=== PATIENT | female | born 1930 | race African-American/Black ===

== ENCOUNTER 2016-12-13 07:01 | Inpatient (IN) | payer MEDICARE ==
--- NOTE | 2016-12-13 07:26 | ERNOTE ---
<Bud Cummings - Last Filed: 12/13/16 08:12> Lower Extremity HPI - Narrative Date of Service: 12/13/16 - General Lower Extremities Pain: thigh: right Time Seen by Provider: 12/13/16 07:24 Source: patient, family - nieces x 2, one of whom is also also her caretake. Exam Limitations: no limitations - Immun/Allergies/Home Medications Immunizations: IMMUNIZATION HX Immunizations Up to Date Yes History of Influenza Vaccine Yes Hx Pneumococcal Vaccination Yes Allergies/Adverse Reactions: Allergies Allergy/AdvReac Type Severity Reaction Status Date / Time penicillin G Allergy Unknown Verified 12/13/16 07:20 Home Medications: HOME MEDICATIONS Aggrenox 60 BID 06/28/12 [Last Taken Unknown] Alphagan P BID 06/28/12 [Last Taken Unknown] Lumigan 06/28/12 [Last Taken Unknown] Metoprolol Succinate 50 mg PO HS 06/28/12 [Last Taken Unknown] Potassium 10 mg PO TID 06/28/12 [Last Taken Unknown] Ropinirole HCl 5 mg PO DAILY 06/28/12 [Last Taken Unknown] Trazodone HCl 50 mg PO DAILY 06/28/12 [Last Taken Unknown] Albuterol Sulfate [Proventil Hfa] 1 puff INH PRN PRN 12/13/16 [Last Taken Unknown] Amlodipine/Atorvastatin [Amlodipine-Atorvast 10-10 mg] 10 mg PO DAILY 12/13/16 [ Last Taken Unknown] Atorvastatin Calcium [Lipitor] 10 mg PO DAILY 12/13/16 [Last Taken Unknown] Dorzolamide HCl [Trusopt] 1 drop OP PRN 12/13/16 [Last Taken Unknown] Quinapril HCl 10 mg PO DAILY 12/13/16 [Last Taken Unknown] glipiZIDE [Glipizide] 5 mg PO DAILY 12/13/16 [Last Taken Unknown] - History of Present Illness Narrative: pt c/o sore right leg for 2 months and knots on her leg (calf. 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 SHE HAS HAD EPIDURALS FOR THIS IN THE PAST , 2013. NO HISTORY OF NEW TRAUMA. SHE SAYS IT HURTS TOO MUCH TOO WALK. OTHER THAN USING BIO-FREEZE RECENTLY, WHICH NO LONGER HELPS, SHE SAYS SHE HAS NOT BEEN DOING ANY THING ELSE FOR THE PAIN THAT GOES FROM RIGHT BUTTOCK TO RIGHT LATERAL THIGH. THERE IS NO HX OF ANY BOWEL OR BLADDER INCONTINENCE. . Occurred: other - 2 MONTHS Review of Systems - Review of Systems Constitutional: Present: See HPI EYE: Present: no symptoms reported ENT: Present: no symptoms reported Respiratory: Present: no symptoms reported Cardiology: Present: no symptoms reported Gastrointestinal/Abdominal: Present: no symptoms reported Genitourinary: Present: no symptoms reported Musculoskeletal: Present: See HPI, back pain, other - PAIN DOWN RIGHT THIGH LATERALLY Skin: Present: no symptoms reported Neurological: Present: See HPI Endocrine: Present: no symptoms reported Hematologic/Lymphatic: Present: no symptoms reported Psych: Present: no symptoms reported All Other Systems: All systems neg except as marked - Patient's Past Medical History Patient History - Medical: Diabetes Type 2, Hypothyroidism, Other Patient History - Cardiac/Respiratory: Asthma, CVA/Stroke, Other Patient History - Cancer: No Hx of Cancer Patient History - Surgical Procedures: Cholecystectomy, Hysterectomy, Total Knee Replacement, T & A Patient History - Other: None - Social History Living Situations: alone Abuse History: No History of abuse Psych History: No pertinent hx Smoking Status: Never smoker Have you smoked in the past 12 months: No Do you dip or chew tobacco: No Alcohol Use: none Drug Use: none - Immunizations Immunizations Up to Date: Yes Hx Pneumococcal Vaccination: Yes History of Influenza Vaccine: Yes Physical Exam - Physical Exam General Appearance: Present: wd/wn, alert, mild distress - ELDERLY SHORT OBESE LADY , A & O WITH C/O RIGHT BUTTOCK AND THIGH PAIN. Respiratory: Present: no respiratory distress, normal breath sounds, no accessory muscle use, chest nontender, lungs clear Cardiovascular/Chest: Present: no murmur, tachycardia, irregularly irregular Peripheral Pulses: N=norm/S=strong/W=weak/B=bound/A=absent: Dorsalis-pedis (R): Normal, Dorsalis-pedis (L): Normal Gastrointestinal/Abdominal: Present: normal bowel sounds, nontender, soft, no organomegaly Back Exam: Present: normal inspection, no CVA tenderness, vertebral tenderness - C/O LOWER LUMBAR TENDERNESS TO PALPATION Extremity Exam: Present: normal inspection - EXCEPT FOR OBESITY AND DECONDITIONING WITH POOR MUSCLE TONE. NO DEFORMITY OR SWELLING OR BRUISING OR ERYTHEMA SHE HAS TENDERNES TO PALPATION FROM RIGHT POST LATERAL BUTTOCK DOWN LATERAL RIGHT THIGH TO ABOUT KNEE. SHE SAYS SHE HAS "KNOTS" TO LATERAL DISTAL LOWER LEG BUT I PALPATE NO KNOTS AND CALF IS RELAXED AND FLACCID WITH NO PAIN WITH CALF SQUEEZE. SHE HAS FULL PASSIVE ROM AT HIP AND KNEE ON RIGHT BUT C/O PAIN WITH ACTIVE FLEXION. SHE HAS GOOD DISTAL PULSES AND SENSATION AND DTR'S ON THE RIGHT. Neurological Exam: Present: alert, oriented DTR: N=norm/NB=norm/brisk/A=abs/DD=dull/dimin/HC=hyperactive: Knee (R): Normal, Ankle (R): Normal Skin Exam: Present: normal color, warm/dry ED Progress - Vital Signs Vital Signs: Vital Signs 12/13/16 07:10 Temperature 36.0 C L Pulse Rate 121 H Respiratory 15 Rate Blood Pressure 142/88 O2 Sat by Pulse 98 Oximetry - EKG EKG: atrial fibrillation - with rvr , no old ekgs - Progress/Reassessment Chief Complaint: Lower Extremity Pain/ Injury - Transfer of Care Physician Sign Out: Bud Cummings Receiving Physician: George Levy Pending Results: Labs, Pain-control Expected Disposition: Discharge Departure Clinical Impression: Atrial fibrillation with RVR, Falls frequently Sciatica Qualifiers: Laterality: right Qualified Code(s): M54.31 - Sciatica, right side CVA (cerebral vascular accident) Qualifiers: CVA mechanism: occlusion Precerebral and cerebral artery: unspecified cerebral artery Qualified Code(s): I63.50 - Cerebral infarction due to unspecified occlusion or stenosis of unspecified cerebral artery UTI (urinary tract infection) Qualifiers: Urinary tract infection type: acute cystitis Hematuria presence: without hematuria Qualified Code(s): N30.00 - Acute cystitis without hematuria - Departure Disposition: [facility] Condition: Fair Referrals: Eliu Estevez MD [Primary Care Provider] - <George Levy - Last Filed: 12/13/16 11:48> Lower Extremity HPI - Immun/Allergies/Home Medications Immunizations: IMMUNIZATION HX Immunizations Up to Date Yes History of Influenza Vaccine Yes Hx Pneumococcal Vaccination Yes ED Progress - Vital Signs Vital Signs: Vital Signs 12/13/16 12/13/16 12/13/16 07:10 07:52 10:32 Temperature 36.0 C L Pulse Rate 121 H 113 H 85 Respiratory 15 12 Rate Blood Pressure 142/88 159/94 118/65 O2 Sat by Pulse 98 93 Oximetry 12/13/16 11:32 Temperature Pulse Rate 86 Respiratory 14 Rate Blood Pressure 147/79 O2 Sat by Pulse 93 Oximetry Plan - Plan Plan: Patient has had the ambulatory dysfunction for approximately 4 weeks and a left lacunar infarct was found on CT and whether this is contributing to the right leg weakness or not is unknown. Patient is hallucinating however she also has a UTI and these could be cool contributing things to the overall weakness as well. She has had frequent falls and this could be secondary to the right leg weakness or possibly even UTI also the patient's age and her multiple comorbidities she will need to be admitted to the hospital for PT OT eval and treatment for the UTI.
[2016-12-13] MEDS ORDERED: DILTIAZEM HCL 5 MG/ML VIAL IV ONE ×2 (07:39→07:43)
[2016-12-13] MEDS ORDERED: KETOROLAC TROMETHAMINE 30 MG/ML VIAL IM ONE (07:41)
[2016-12-13] MEDS ORDERED: KETOROLAC TROMETHAMINE 30 MG/ML VIAL ONE ×2 (07:43→08:51)
[2016-12-13] MEDS ORDERED: KETOROLAC TROMETHAMINE 30 MG/ML VIAL IV ONE ×2 (07:49→08:50)
--- OUTSIDE RECORDS SUMMARY | 2016-12-13 07:50 | XMS REPORT | Continuity of Care Document ---
:1930 Author Organization [facility] ([facility]) Address [address] [place] [address] Phone [phone] Care Team Providers Name Role Phone Unavailable Primary Care Provider Unavailable Source Comments This disclosure is being made pursuant to the Care Everywhere program, applicable federal and state laws, and may not contain all informaitonavailable regarding this patient.[facility] ([facility]) Active Allergies and Adverse Reactions Allergen Noted Date Severity Reactions Comments Penicillins Angioedema Current Medications Not on file Active Problems Not on file Social History Tobacco Use Types Packs/Day Years Used Date Never Assessed Last Filed Vital Signs Vital Sign Reading Time Taken Blood Pressure - - Pulse - - Temperature - - Respiratory Rate - - Height 1.562 m (5' 1.49") 1998 2:49 PM CDT Weight 102.799 kg (226 lb 10.1 oz) 11/26/1998 1:01 PM CDT Body Mass Index 42.13 11/26/1998 1:01 PM CDT Oxygen Saturation - - Plan of Care Health Maintenance Due Date Last Done Comments Hepatitis B Vaccine (1 of 3 - Primary Series) 1930 Tdap Vaccine 1941 Td Vaccine 1948 Zoster Vaccine 1990 Pneumococcal Vaccine (1 of 2 - PCV13) 1995 Lipid Disorder Screening 2003 1998 Influenza Vaccine: Seasonal (#1) 03/15/2016 HCC Annual Coding Diabetes without Complication 08/15/2016 Results from Last 3 Months Not on file
--- OUTSIDE RECORDS SUMMARY | 2016-12-13 07:50 | XMS REPORT | Summary of Care ---
:1930 Author Organization [facility] Address [address] [place] [phone] Care Team Providers Name Role Phone Eliu Estevez Primary Care Physician Encounter Date(s): 01/06/16 - 01/06/[address] [address] Final: Type 2 diabetes mellitus without complications Final: Hyperlipidemia, unspecified Final: Essential (primary) hypertension Final: Hypothyroidism, unspecified Discharge Disposition: Discharged to Home or Self Care Attending Physician: Eliu Estevez MD Admitting Physician: Eliu Estevez MD Vital Signs No data available for this section Problem List Condition Effective Dates Status Health Status Informant Cerebrovascular accident(Confirmed) Active DM - Diabetes mellitus(Confirmed) Active Hyperlipidemia(Confirmed) Active Hypertension(Confirmed) Active Hypothyroidism(Confirmed) Active Allergies, Adverse Reactions, Alerts Substance Reaction Severity Status penicillins Active Medications Aggrenox 25 mg-200 mg oral capsule, extended release 1 cap(s), Oral, BID, # 180 cap(s), 3 Refill(s), Start Date: 01/07/15 11:31:30 CDT, Pharmacy: [facility] Start Date: 01/07/15 Stop Date: 11/24/15 Status: CompletedAggrenox 25 mg-200 mg oral capsule, extended release 1 cap(s), Oral, BID, # 60 cap(s), 0 Refill(s) Start Date: 12/24/13 Stop Date: 06/27/14 Status: DiscontinuedAggrenox 25 mg-200 mg oral capsule, extended release 1 cap(s), Oral, BID, # 180 cap(s), 3 Refill(s), Start Date: 11/24/15 10:52:09 CDT, Pharmacy: [facility] Start Date: 11/24/15 Status: OrderedAggrenox 25 mg-200 mg oral capsule, extended release 1 cap(s), Oral, BID, # 180 cap(s), 3 Refill(s), Start Date: 06/27/14 10:27:00 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 [employer]TER, Pharmacy: [facility] Start Date: 06/27/14 Stop Date: 01/07/15 Status: CompletedAlphagan P 0.1% ophthalmic solution 1 drop(s), OPTH, BID, # 10 mL, 0 Refill(s) Start Date: 12/24/13 Status: OrderedamLODIPine 10 mg oral tablet 1 tab(s), Oral, Daily, # 30 tab(s), 0 Refill(s) Start Date: 12/24/13 Stop Date: 06/27/14 Status: DiscontinuedamLODIPine 10 mg oral tablet 1 tab(s), Oral, Daily, # 90 tab(s), 3 Refill(s), Start Date: 07/01/15 13:59:24 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 SETTER, Pharmacy: [facility] Start Date: 07/01/15 Status: OrderedamLODIPine 10 mg oral tablet 1 tab(s), Oral, Daily, # 90 tab(s), 3 Refill(s), Start Date: 06/27/14 10:27:00 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 SETTER, Pharmacy: [facility] Start Date: 06/27/14 Stop Date: 07/01/15 Status: Completedatorvastatin 10 mg oral tablet 1 tab(s), Oral, Daily, # 30 tab(s), 0 Refill(s) Start Date: 12/24/13 Stop Date: 06/27/14 Status: Discontinuedatorvastatin 10 mg oral tablet 1 tab(s), Oral, Daily, Due for a appt in , # 90 tab(s), 0 Refill(s), Start Date: 06/04/15 9:08:43 CDT, Pharmacy: [facility] Special Instructions: Due for a appt in Jun. Start Date: 06/04/15 Stop Date: 07/01/15 Status: Completedatorvastatin 10 mg oral tablet 1 tab(s), Oral, Daily, # 90 tab(s), 3 Refill(s), Start Date: 06/27/14 10:02:00 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 SETTER, Pharmacy: [facility] Start Date: 06/27/14 Stop Date: 06/04/15 Status: Completedatorvastatin 10 mg oral tablet 1 tab(s), Oral, Daily, # 90 tab(s), 3 Refill(s), Start Date: 07/01/15 13:58:28 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 SETTER, Pharmacy: [facility] Start Date: 07/01/15 Status: OrderedAzopt 1% ophthalmic suspension 1 drop(s), OPTH, BID, # 15 mL, 0 Refill(s) Start Date: 12/24/13 Status: OrderedCipro 250 mg oral tablet 1 tab(s), Oral, q12hr, # 14 tab(s), 0 Refill(s), Start Date: 12/26/14 15:31:00 CDT, [facility]acy: [facility] [place] [place] Start Date: 12/26/14 Stop Date: 07/01/15 Status: DiscontinuedCipro 250 mg oral tablet 1 tab(s), Oral, q12hr, # 14 tab(s), 0 Refill(s), Start Date: 12/26/14 15:31:00 CDT Start Date: 12/26/14 Stop Date: 12/26/14 Status: DiscontinuedGlucotrol XL 5 mg oral tablet, extended release 1 tab(s), Oral, Daily, # 90 tab(s), 3 Refill(s), Start Date: 01/07/15 17:33:53 CDT, Pharmacy: [facility] Start Date: 01/07/15 Stop Date: 12/19/15 Status: CompletedGlucotrol XL 5 mg oral tablet, extended release 1 tab(s), Oral, Daily, # 90 tab(s), 3 Refill(s), Start Date: 12/19/15 14:43:30 CDT, Pharmacy: [facility] Start Date: 12/19/15 Status: OrderedGlucotrol XL 5 mg oral tablet, extended release 1 tab(s), Oral, Daily, # 90 tab(s), 0 Refill(s) Start Date: 12/24/13 Stop Date: 06/27/14 Status: DiscontinuedGlucotrol XL 5 mg oral tablet, extended release 1 tab(s), Oral, Daily, # 30 tab(s), 0 Refill(s), Start Date: 01/07/15 15:13:00 CDT, Pharmacy: [facility] [place] [place] Start Date: 01/07/15 Status: OrderedGlucotrol XL 5 mg oral tablet, extended release 1 tab(s), Oral, Daily, # 30 tab(s), 0 Refill(s), Start Date: 01/07/15 15:13:00 CDT Start Date: 01/07/15 Stop Date: 01/07/15 Status: DiscontinuedGlucotrol XL 5 mg oral tablet, extended release 1 tab(s), Oral, Daily, # 90 tab(s), 3 Refill(s), Start Date: 06/27/14 10:25:00 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 SETTER, Pharmacy: [facility] Start Date: 06/27/14 Stop Date: 01/07/15 Status: CompletedHYDROcodone-acetaminophen 5 mg-325 mg oral tablet 2 tab(s), Oral, q6hr, # 30 tab(s), 2 Refill(s) Start Date: 12/25/13 Stop Date: 02/18/14 Status: DiscontinuedKlor-Con M10 oral tablet, extended release 1 tab(s), Oral, TID, # 60 tab(s), 0 Refill(s) Start Date: 12/24/13 Stop Date: 06/27/14 Status: DiscontinuedKlor-Con M10 oral tablet, extended release 1 tab(s), Oral, TID, # 270 tab(s), 3 Refill(s), Start Date: 05/07/15 11:28:46 CDT, Pharmacy: [facility] Start Date: 05/07/15 Status: OrderedKlor-Con M10 oral tablet, extended release 1 tab(s), Oral, TID, # 270 tab(s), 3 Refill(s), Start Date: 06/27/14 10:26:00 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 SETTER, Pharmacy: [facility] Start Date: 06/27/14 Stop Date: 05/07/15 Status: CompletedLumigan 0.03% ophthalmic solution 1 drop(s), OPTH, qPM, # 3 mL, 0 Refill(s) Start Date: 12/24/13 Status: OrderedMetoprolol Succinate ER 100 mg oral tablet, extended release 1 tab(s), Oral, Daily, dose increase, # 90 tab(s), 3 Refill(s), Start Date: 9:24:00 CDT, Pharmacy: [facility] Special Instructions: dose increase Start Date: 01/06/16 Status: OrderedMetoprolol Succinate ER 50 mg oral tablet, extended release 1 tab(s), Oral, Daily, # 90 tab(s), 3 Refill(s), Start Date: 06/27/14 10:00:00 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 SETTER, Pharmacy: [facility] Start Date: 06/27/14 Stop Date: 05/28/15 Status: CompletedMetoprolol Succinate ER 50 mg oral tablet, extended release 1 tab(s), Oral, Daily, # 30 tab(s), 0 Refill(s) Start Date: 12/24/13 Stop Date: 06/27/14 Status: DiscontinuedMetoprolol Succinate ER 50 mg oral tablet, extended release 1 tab(s), Oral, Daily, # 90 tab(s), 3 Refill(s), Start Date: 05/28/15 17:27:49 CDT, Pharmacy: [facility] Start Date: 05/28/15 Stop Date: 01/06/16 Status: CompletedPercocet 5/325 oral tablet 2 tab(s), Oral, q6hr interval, PRN for pain, # 60 tab(s), 0 Refill(s) Start Date: 02/18/14 Stop Date: 04/21/14 Status: CompletedPercocet 5/325 oral tablet 2 tab(s), Oral, q6hr interval, PRN for pain, 0 Refill(s) Start Date: 02/18/14 Stop Date: 02/18/14 Status: DiscontinuedProventil HFA 90 mcg/inh inhalation aerosol 2 puff(s), Inhale, q4hr, PRN for wheezing, # 3 EA, 3 Refill(s), Start Date: 10:00:00 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 SETTER, Pharmacy: [facility] Start Date: 06/27/14 Stop Date: 07/04/14 Status: DiscontinuedProventil HFA 90 mcg/inh inhalation aerosol 2 puff(s), Inhale, q4hr, PRN for wheezing, # 7 gm, 0 Refill(s) Start Date: 12/24/13 Stop Date: 06/27/14 Status: Discontinuedquinapril 10 mg oral tablet 1 tab(s), Oral, Daily, # 30 tab(s), 0 Refill(s) Start Date: 12/24/13 Stop Date: 06/27/14 Status: Discontinuedquinapril 10 mg oral tablet 1 tab(s), Oral, Daily, # 90 tab(s), 3 Refill(s), Start Date: 06/27/14 9:58:00 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 SETTER, Pharmacy: [facility] Start Date: 06/27/14 Stop Date: 07/01/15 Status: Completedquinapril 10 mg oral tablet 1 tab(s), Oral, Daily, # 90 tab(s), 3 Refill(s), Start Date: 07/01/15 13:59:49 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 SETTER, Pharmacy: [facility] Start Date: 07/01/15 Status: OrderedrOPINIRole 0.5 mg oral tablet 1 tab(s), Oral, HS, 1 to 3 hours before bedtime, # 90 tab(s), 3 Refill(s), Start Date: 07/01/15 9:06:11 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 SETTER, Pharmacy: [facility] Special Instructions: 1 to 3 hours before bedtime Start Date: 07/01/15 Stop Date: 01/06/16 Status: DiscontinuedrOPINIRole 0.5 mg oral tablet 1 tab(s), Oral, Daily, # 90 tab(s), 0 Refill(s) Start Date: 12/24/13 Stop Date: 06/27/14 Status: DiscontinuedrOPINIRole 0.5 mg oral tablet 1 tab(s), Oral, Daily, # 90 tab(s), 3 Refill(s), Start Date: 06/27/14 9:59:00 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 SETTER, Pharmacy: [facility] Start Date: 06/27/14 Stop Date: 06/12/15 Status: CompletedrOPINIRole 0.5 mg oral tablet 1 tab(s), Oral, Daily, # 90 tab(s), 3 Refill(s), Start Date: 06/12/15 10:54:05 CDT, Pharmacy: [facility] Start Date: 06/12/15 Stop Date: 07/01/15 Status: CompletedtraZODone 50 mg oral tablet 1 tab(s), Oral, HS, # 90 tab(s), 3 Refill(s), Start Date: 06/12/15 10:52:31 CDT , Pharmacy: [facility] Start Date: 06/12/15 Status: OrderedtraZODone 50 mg oral tablet 1 tab(s), Oral, HS, # 30 tab(s), 0 Refill(s) Start Date: 12/24/13 Stop Date: 06/27/14 Status: DiscontinuedtraZODone 50 mg oral tablet 1 tab(s), Oral, HS, # 90 tab(s), 3 Refill(s), Start Date: 06/27/14 9:59:00 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 SETTER, Pharmacy: [facility] Start Date: 06/27/14 Stop Date: 06/12/15 Status: CompletedVentolin HFA 90 mcg/inh inhalation aerosol 2 puff(s), Inhale, q4hr, PRN for wheezing, # 3 EA, 3 Refill(s), Start Date: 16:52:00 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 SETTER, Pharmacy: [facility] Start Date: 07/04/14 Stop Date: 06/06/15 Status: CompletedVentolin HFA 90 mcg/inh inhalation aerosol 2 puff(s), Inhale, q4hr, PRN for wheezing, # 18 gm, 0 Refill(s), Start Date: 16:51:00 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 SETTER Start Date: 07/04/14 Stop Date: 07/04/14 Status: DiscontinuedVentolin HFA 90 mcg/inh inhalation aerosol 2 puff(s), Inhale, q4hr, PRN for wheezing, # 3 EA, 3 Refill(s), Start Date: 12:45:20 CDT, Pharmacy: [facility] Start Date: 06/06/15 Status: Ordered Results Patient Viewable Results Most recent to oldest [Reference Range]: 1 WBC [4.8-10.8 thou/mm3] 6.8 thou/mm3 (01/06/16 9:55 AM) RBC [4.20-5.40 Mil/mm3] 4.68 Mil/mm3 (01/06/16 9:55 AM) Hgb [12.0-16.0 g/dL] 13.7 g/dL (01/06/16 9:55 AM) Hct [37.0-47.0 %] 38.5 % (01/06/16:55 AM) MCV [80.0-94.0 fL] 82.3 fL (01/06/16:55 AM) MCH [25.0-38.0 pg/cell] 29.3 pg/cell (01/06/16:55 AM) MCHC [31.0-37.0 g/dL] 35.6 g/dL (01/06/16:55 AM) RDW [1.0-48.0 fL] 45.6 fL (01/06/16:55 AM) Platelet [130-400 thou/mm3] 137 thou/mm3 (01/06/16:55 AM) Neutrophils % Auto [50.0-75.0 %] 71.0 % (01/06/16:55 AM) Immature Granulocyte Auto [0.1-2.0 %] 0.3 % (01/06/16:55 AM) Lymphocytes % Auto [15.0-41.0 %] 20.3 % (01/06/16:55 AM) Monocytes % Auto [2.0-10.0 %] 5.9 % (01/06/16:55 AM) Eosinophils % Auto [0.0-6.0 %] 2.2 % (01/06/16:55 AM) Basophil % Auto [0.0-1.0 %] 0.3 % (01/06/16:55 AM) Neutrophils Absolute [1.5-5.9 thou/mm3] 4.8 thou/mm3 (01/06/16:55 AM) Immature Gran Absolute [0.01-0.03 thou/mm3] 0.02 thou/mm3 (01/06/16 9:55 AM) Lymphocytes Absolute [1.5-4.0 thou/mm3] 1.4 thou/mm3 *LOW* (01/06/16:55 AM) Monocytes Absolute [0.0-0.9 thou/mm3] 0.4 thou/mm3 (01/06/16 9:55 AM) Eosinophil Absolute [0.0-0.7 thou/mm3] 0.2 thou/mm3 (01/06/16 9:55 AM) Basophil Absolute [0.0-0.2 thou/mm3] 0.0 thou/mm3 (01/06/16 9:55 AM) Sodium Lvl [135-144 mEq/L] 143 mEq/L (01/06/16 9:55 AM) Potassium Lvl [3.3-4.8 mEq/L] 4.5 mEq/L (01/06/16 9:55 AM) Chloride Lvl [98-107 mEq/L] 107 mEq/L (01/06/16 9:55 AM) Bicarbonate Lvl [22-30 mmol/L] 25 mmol/L (01/06/16 9:55 AM) Anion Gap [10.0-20.0] 15.5 (01/06/16 9:55 AM) Glucose Lvl [70-108 mg/dL] 132 mg/dL *HI* (01/06/16 9:55 AM) BUN [7-21 mg/dL] 18 mg/dL (01/06/16 9:55 AM) Creatinine Lvl [0.50-1.20 mg/dL] 0.98 mg/dL (01/06/16 9:55 AM) BUN/Creat Ratio 18.4 *NA* (01/06/16 9:55 AM) eGFR AA [>=60] >60 (01/06/16 9:55 AM) eGFR CANDY [>=60] 54 *LOW* (01/06/16 9:55 AM) Calcium Lvl [8.6-10.2 mg/dL] 9.2 mg/dL (01/06/16 9:55 AM) Total Protein [6.4-8.3 g/dL] 7.1 g/dL (01/06/16 9:55 AM) Albumin Lvl [3.5-5.2 g/dL] 4.0 g/dL (01/06/16 9:55 AM) Globulin 3.1 *NA* (01/06/16 9:55 AM) A/G Ratio [0.9-1.8] 1.3 (01/06/16 9:55 AM) Bilirubin Total [0.1-1.0 mg/dL] 0.9 mg/dL (01/06/16 9:55 AM) Alkaline Phosphatase [39-129 unit/L] 62 unit/L (01/06/16 9:55 AM) AST [0-39 unit/L] 18 unit/L (01/06/16 9:55 AM) ALT [0-40 unit/L] 7 unit/L (01/06/16 9:55 AM) Glycated Hemoglobin [4.8-6.0 %] 5.6 % (01/06/16 9:55 AM) Estimated Average Glucose 114 mg/dL *NA* (01/06/16 9:55 AM) Cholesterol Total [0-200 mg/dL] 111 mg/dL (01/06/16 9:55 AM) Triglyceride [0-199 mg/dL] 73 mg/dL (01/06/16 9:55 AM) HDL Cholesterol [40-100 mg/dL] 51 mg/dL (01/06/16 9:55 AM) LDL Cholesterol (Direct) [0-129 mg/dL] 53 mg/dL (01/06/16 9:55 AM) Non HDL Cholesterol [0-159 mg/dL] 60 mg/dL (01/06/16 9:55 AM) TSH [0.50-3.00 mIU/L] 0.83 mIU/L (01/06/16 9:55 AM) Microalbumin, Ur 926 mg/L *NA* (01/06/16 9:50 AM) Creatinine, Urine MA 138.8 mg/dL *NA* (01/06/16 9:50 AM) Ur Microalb/Creat Ratio [0-29 mg/g Cr] 667 mg/g Cr *HI* (01/06/16 9:50 AM) Estimated Creatinine Clearance 45.91 mL/min (01/06/16 10:34 AM) Immunizations No data available for this section Procedures Procedure Date Related Diagnosis Body Site Appendectomy Cholecystectomy Hysterectomy1 Tonsillectomy Total knee replacement2 1with ovary [id number] Social History No data available for this section Assessment and Plan No data available for this section
--- OUTSIDE RECORDS SUMMARY | 2016-12-13 07:50 | XMS REPORT | Summary of Care ---
:[address] [facility] Address [address] [place] [phone] Care Team Providers Name Role Phone Eliu Estevez Primary Care Physician Encounter Date(s): 01/06/16 - 01/06/[address] [id number] Final: Type 2 diabetes mellitus without complications [...] Refill(s), Start Date: 01/07/15 11:31:30 CDT, Pharmacy: [facility] Start Date: 01/07/15 Stop Date: 11/24/15 Status: CompletedAggrenox 25 mg-200 mg oral capsule, extended release 1 cap(s), Oral, BID, # 60 cap(s), 0 Refill(s) Start Date: 12/24/13 Stop Date: 06/27/14 Status: DiscontinuedAggrenox 25 mg-200 mg oral capsule, extended release 1 cap(s), Oral, BID, # 180 cap(s), 3 Refill(s), Start Date: 11/24/15 10:52:09 CDT, Pharmacy: [facility] Start Date: 11/24/15 Status: OrderedAggrenox 25 mg-200 mg oral capsule, extended release 1 cap(s), Oral, BID, # 180 cap(s), 3 Refill(s), Start Date: 06/27/14 10:27:00 MANUFACTURING SPECIALIST, Pharmacy: [facility] Start Date: 06/27/14 Stop Date: [...] tab(s), 3 Refill(s), Start Date: 07/01/15 13:59:24 MANUFACTURING SPECIALIST, Pharmacy: [facility] Start Date: 07/01/15 Status: OrderedamLODIPine 10 mg oral tablet 1 tab(s), Oral, Daily, # 90 tab(s), 3 Refill(s), Start Date: 06/27/14 10:27:00 MANUFACTURING SPECIALIST, Pharmacy: [facility] Start Date: 06/27/14 Stop Date: 07/01/15 Status: Completedatorvastatin 10 mg oral tablet 1 tab(s), Oral, Daily, # 30 tab(s), 0 Refill(s) Start Date: 12/24/13 Stop Date: 06/27/14 Status: Discontinuedatorvastatin 10 mg oral tablet 1 tab(s), Oral, Daily, Due for a appt in , # 90 tab(s), 0 Refill(s), Start Date: 06/04/15 9:08:43 CDT, Pharmacy: [facility] Special Instructions: Due for a appt in Jun. Start Date: 06/04/15 Stop Date: 07/01/15 Status: Completedatorvastatin 10 mg oral tablet 1 tab(s), Oral, Daily, # 90 tab(s), 3 Refill(s), Start Date: 06/27/14 10:02:00 MANUFACTURING SPECIALIST, Pharmacy: [facility] Start Date: 06/27/14 Stop Date: 06/04/15 Status: Completedatorvastatin 10 mg oral tablet 1 tab(s), Oral, Daily, # 90 tab(s), 3 Refill(s), Start Date: 07/01/15 13:58:28 MANUFACTURING SPECIALIST, Pharmacy: [facility] Start Date: 07/01/15 Status: OrderedAzopt 1% ophthalmic suspension 1 drop(s), OPTH, BID, # 15 mL, 0 Refill(s) Start Date: 12/24/13 Status: OrderedCipro 250 mg oral tablet 1 tab(s), Oral, q12hr, # 14 tab(s), 0 Refill(s), Start Date: 12/26/14 15:31:00 CDT, Pharmacy: [facility] [place] [place] Start Date: 12/26/14 Stop Date: 07/01/15 Status: DiscontinuedCipro 250 mg oral tablet 1 tab(s), Oral, q12hr, # 14 tab(s), 0 Refill(s), Start Date: 12/26/14 15:31:00 CDT Start Date: 12/26/14 Stop Date: 12/26/14 Status: DiscontinuedGlucotrol XL 5 mg oral tablet, extended release 1 tab(s), Oral, Daily, # 90 tab(s), 3 Refill(s), Start Date: 01/07/15 17:33:53 CDT, Pharmacy: [facility] Start Date: 01/07/15 Stop Date: 12/19/15 Status: CompletedGlucotrol XL 5 mg oral tablet, extended release 1 tab(s), Oral, Daily, # 90 tab(s), 3 Refill(s), Start Date: 12/19/15 14:43:30 CDT, Pharmacy: [facility] Start Date: 12/19/15 Status: OrderedGlucotrol XL 5 mg oral tablet, extended release 1 tab(s), Oral, Daily, # 90 tab(s), 0 Refill(s) Start Date: 12/24/13 Stop Date: 06/27/14 Status: DiscontinuedGlucotrol XL 5 mg oral tablet, extended release 1 tab(s), Oral, Daily, # 30 tab(s), 0 Refill(s), Start Date: 01/07/15 15:13:00 CDT, Pharmacy: [facility] [place] [place] Start Date: 01/07/15 Status: OrderedGlucotrol XL 5 mg oral tablet, extended release 1 tab(s), Oral, Daily, # 30 tab(s), 0 Refill(s), Start Date: 01/07/15 15:13:00 CDT Start Date: 01/07/15 Stop Date: 01/07/15 Status: DiscontinuedGlucotrol XL 5 mg oral tablet, extended release 1 tab(s), Oral, Daily, # 90 tab(s), 3 Refill(s), Start Date: 06/27/14 10:25:00 MANUFACTURING SPECIALIST, Pharmacy: [facility] Start Date: 06/27/14 Stop Date: [...] Refill(s), Start Date: 05/07/15 11:28:46 CDT, Pharmacy: [facility] Start Date: 05/07/15 Status: OrderedKlor-Con M10 oral tablet, extended release 1 tab(s), Oral, TID, # 270 tab(s), 3 Refill(s), Start Date: 06/27/14 10:26:00 MANUFACTURING SPECIALIST, Pharmacy: [facility] Start Date: 06/27/14 Stop Date: 05/07/15 Status: CompletedLumigan 0.03% ophthalmic solution 1 drop(s), OPTH, qPM, # 3 mL, 0 Refill(s) Start Date: 12/24/13 Status: OrderedMetoprolol Succinate ER 100 mg oral tablet, extended release 1 tab(s), Oral, Daily, dose increase, # 90 tab(s), 3 Refill(s), Start Date: 9:24:00 CDT, Pharmacy: [facility] Special Instructions: dose increase Start Date: 01/06/16 Status: OrderedMetoprolol Succinate ER 50 mg oral tablet, extended release 1 tab(s), Oral, Daily, # 90 tab(s), 3 Refill(s), Start Date: 06/27/14 10:00:00 MANUFACTURING SPECIALIST, Pharmacy: [facility] Start Date: 06/27/14 Stop Date: 05/28/15 Status: CompletedMetoprolol Succinate ER 50 mg oral tablet, extended release 1 tab(s), Oral, Daily, # 30 tab(s), 0 Refill(s) Start Date: 12/24/13 Stop Date: 06/27/14 Status: DiscontinuedMetoprolol Succinate ER 50 mg oral tablet, extended release 1 tab(s), Oral, Daily, # 90 tab(s), 3 Refill(s), Start Date: 05/28/15 17:27:49 CDT, Pharmacy: [facility] Start Date: 05/28/15 Stop Date: [...] 3 EA, 3 Refill(s), Start Date: 10:00:00 MANUFACTURING SPECIALIST, Pharmacy: [facility] Start Date: 06/27/14 Stop Date: [...] tab(s), 3 Refill(s), Start Date: 06/27/14 9:58:00 MANUFACTURING SPECIALIST, Pharmacy: [facility] Start Date: 06/27/14 Stop Date: 07/01/15 Status: Completedquinapril 10 mg oral tablet 1 tab(s), Oral, Daily, # 90 tab(s), 3 Refill(s), Start Date: 07/01/15 13:59:49 MANUFACTURING SPECIALIST, Pharmacy: [facility] Start Date: 07/01/15 Status: OrderedrOPINIRole 0.5 mg oral tablet 1 tab(s), Oral, HS, 1 to 3 hours before bedtime, # 90 tab(s), 3 Refill(s), Start Date: 07/01/15 9:06:11 MANUFACTURING SPECIALIST, Pharmacy: [facility] Special Instructions: 1 to 3 hours before bedtime Start Date: 07/01/15 Stop Date: 01/06/16 Status: DiscontinuedrOPINIRole 0.5 mg oral tablet 1 tab(s), Oral, Daily, # 90 tab(s), 0 Refill(s) Start Date: 12/24/13 Stop Date: 06/27/14 Status: DiscontinuedrOPINIRole 0.5 mg oral tablet 1 tab(s), Oral, Daily, # 90 tab(s), 3 Refill(s), Start Date: 06/27/14 9:59:00 MANUFACTURING SPECIALIST, Pharmacy: [facility] Start Date: 06/27/14 Stop Date: 06/12/15 Status: CompletedrOPINIRole 0.5 mg oral tablet 1 tab(s), Oral, Daily, # 90 tab(s), 3 Refill(s), Start Date: 06/12/15 10:54:05 CDT, Pharmacy: [facility] Start Date: 06/12/15 Stop Date: 07/01/15 Status: CompletedtraZODone 50 mg oral tablet 1 tab(s), Oral, HS, # 90 tab(s), 3 Refill(s), Start Date: 06/12/15 10:52:31 CDT , Pharmacy: [facility] Start Date: 06/12/15 Status: OrderedtraZODone 50 mg oral tablet 1 tab(s), Oral, HS, # 30 tab(s), 0 Refill(s) Start Date: 12/24/13 Stop Date: 06/27/14 Status: DiscontinuedtraZODone 50 mg oral tablet 1 tab(s), Oral, HS, # 90 tab(s), 3 Refill(s), Start Date: 06/27/14 9:59:00 MANUFACTURING SPECIALIST, Pharmacy: [facility] Start Date: 06/27/14 Stop Date: 06/12/15 Status: CompletedVentolin HFA 90 mcg/inh inhalation aerosol 2 puff(s), Inhale, q4hr, PRN for wheezing, # 3 EA, 3 Refill(s), Start Date: 16:52:00 MANUFACTURING SPECIALIST, Pharmacy: [facility] Start Date: 07/04/14 Stop Date: 06/06/15 Status: CompletedVentolin HFA 90 mcg/inh inhalation aerosol 2 puff(s), Inhale, q4hr, PRN for wheezing, # 18 gm, 0 Refill(s), Start Date: 16:51:00 MANUFACTURING SPECIALIST Start Date: 07/04/14 Stop Date: 07/04/14 Status: DiscontinuedVentolin HFA 90 mcg/inh inhalation aerosol 2 puff(s), Inhale, q4hr, PRN for wheezing, # 3 EA, 3 Refill(s), Start Date: 12:45:20 CDT, Pharmacy: [facility] Start Date: 06/06/15 Status: Ordered [...] Hysterectomy1 Tonsillectomy Total knee replacement2 1with ovary [id number] Social History No data available for this section Assessment and Plan No data available for this section
--- OUTSIDE RECORDS SUMMARY | 2016-12-13 07:50 | XMS REPORT | Summary of Care ---
:1930 Author Organization [facility] Address [address] [place] [address] Care Team Providers Name Role Phone Eliu Estevez Primary Care Physician Encounter Date(s): 01/06/16 - 01/06/16 [facility], [address] [place], [place] [address] Discharge Diagnosis: Hyperlipidemia Discharge Diagnosis: DM - Diabetes mellitus Discharge Diagnosis: Hypertension Discharge Diagnosis: Hypothyroidism Discharge Disposition: 01 Discharged to Home or Self Care Attending Physician: Eliu Estevez MD Referring Physician: Eliu Estevez MD Vital Signs Most recent to oldest [Reference Range]: 1 Peripheral Pulse Rate [60-100 bpm] 103 bpm *HI* (01/06/16 9:15 AM) SpO2 96 % (01/06/16 9:15 AM) Blood Pressure [90-130/60-90 mmHg] 163/100mmHg *HI* (01/06/16 9:15 AM) Mean Arterial Pressure, Cuff 121 mmHg (01/06/16 9:15 AM) Most recent to oldest [Reference Range]: 1 Height/Length Measured 156.21 cm (01/06/16 9:15 AM) Weight Dosing 99.80 kg1 (01/06/16 9:17 AM) Weight Measured 99.8 kg (01/06/16 9:15 AM) BSA Measured 1.98 m2 (01/06/16 9:15 AM) Body Mass Index Measured 40.9 kg/m2 (01/06/16 9:15 AM) 1Result Comment: This result was because the dosing weight was either not entered or it is>30 days old. This result is based off: Weight Measured January 06, 2016 09:15:00 CDT by Denia Brem Problem List Condition Effective Dates Status Health Status Informant Cerebrovascular accident(Confirmed) Active DM - Diabetes mellitus(Confirmed) Active Hyperlipidemia(Confirmed) Active Hypertension(Confirmed) Active Hypothyroidism(Confirmed) Active Allergies, Adverse Reactions, Alerts Substance Reaction Severity Status penicillins Active Medications Aggrenox 25 mg-200 mg oral capsule, extended release 1 cap(s), Oral, BID, # 180 cap(s), 3 Refill(s), Start Date: 01/07/15 11:31:30 CDT, Pharmacy: [facility] Start Date: 01/07/15 Stop Date: 11/24/15 Status: CompletedAggrenox 25 mg-200 mg oral capsule, extended release 1 cap(s), Oral, BID, # 60 cap(s), 0 Refill(s) Start Date: 12/24/13 Stop Date: 06/27/14 Status: DiscontinuedAggrenox 25 mg-200 mg oral capsule, extended release 1 cap(s), Oral, BID, # 180 cap(s), 3 Refill(s), Start Date: 11/24/15 10:52:09 CDT, Pharmacy: [facility] Start Date: 11/24/15 Status: OrderedAggrenox 25 mg-200 mg oral capsule, extended release 1 cap(s), Oral, BID, # 180 cap(s), 3 Refill(s), Start Date: 06/27/14 10:27:00 ESTIMATOR, Pharmacy: [facility] Start Date: 06/27/14 Stop Date: [...] tab(s), 3 Refill(s), Start Date: 07/01/15 13:59:24 ESTIMATOR, Pharmacy: [facility] Start Date: 07/01/15 Status: OrderedamLODIPine 10 mg oral tablet 1 tab(s), Oral, Daily, # 90 tab(s), 3 Refill(s), Start Date: 06/27/14 10:27:00 ESTIMATOR, Pharmacy: [facility] Start Date: 06/27/14 Stop Date: 07/01/15 Status: Completedatorvastatin 10 mg oral tablet 1 tab(s), Oral, Daily, # 30 tab(s), 0 Refill(s) Start Date: 12/24/13 Stop Date: 06/27/14 Status: Discontinuedatorvastatin 10 mg oral tablet 1 tab(s), Oral, Daily, Due for a appt in , # 90 tab(s), 0 Refill(s), Start Date: 06/04/15 9:08:43 CDT, Pharmacy: [facility] Special Instructions: Due for a appt in Start Date: 06/04/15 Stop Date: 07/01/15 Status: Completedatorvastatin 10 mg oral tablet 1 tab(s), Oral, Daily, # 90 tab(s), 3 Refill(s), Start Date: 06/27/14 10:02:00 ESTIMATOR, Pharmacy: [facility] Start Date: 06/27/14 Stop Date: 06/04/15 Status: Completedatorvastatin 10 mg oral tablet 1 tab(s), Oral, Daily, # 90 tab(s), 3 Refill(s), Start Date: 07/01/15 13:58:28 ESTIMATOR, Pharmacy: [facility] Start Date: 07/01/15 Status: OrderedAzopt 1% ophthalmic suspension 1 drop(s), OPTH, BID, # 15 mL, 0 Refill(s) Start Date: 12/24/13 Status: OrderedCipro 250 mg oral tablet 1 tab(s), Oral, q12hr, # 14 tab(s), 0 Refill(s), Start Date: 12/26/14 15:31:00 CDT, [place] [facility] Start Date: 12/26/14 Stop Date: 07/01/15 Status: DiscontinuedCipro 250 mg oral tablet 1 tab(s), Oral, q12hr, # 14 tab(s), 0 Refill(s), Start Date: 12/26/14 15:31:00 CDT Start Date: 12/26/14 Stop Date: 12/26/14 Status: DiscontinuedGlucotrol XL 5 mg oral tablet, extended release 1 tab(s), Oral, Daily, # 90 tab(s), 3 Refill(s), Start Date: 01/07/15 17:33:53 CDT, Pharmacy: [facility] Start Date: 01/07/15 Stop Date: 12/19/15 Status: CompletedGlucotrol XL 5 mg oral tablet, extended release 1 tab(s), Oral, Daily, # 90 tab(s), 3 Refill(s), Start Date: 12/19/15 14:43:30 CDT, Pharmacy: [facility] Start Date: 12/19/15 Status: OrderedGlucotrol XL 5 mg oral tablet, extended release 1 tab(s), Oral, Daily, # 90 tab(s), 0 Refill(s) Start Date: 12/24/13 Stop Date: 06/27/14 Status: DiscontinuedGlucotrol XL 5 mg oral tablet, extended release 1 tab(s), Oral, Daily, # 30 tab(s), 0 Refill(s), Start Date: 01/07/15 15:13:00 CDT, Pharmacy: [place], [place] Start Date: 01/07/15 Status: OrderedGlucotrol XL 5 mg oral tablet, extended release 1 tab(s), Oral, Daily, # 30 tab(s), 0 Refill(s), Start Date: 01/07/15 15:13:00 CDT Start Date: 01/07/15 Stop Date: 01/07/15 Status: DiscontinuedGlucotrol XL 5 mg oral tablet, extended release 1 tab(s), Oral, Daily, # 90 tab(s), 3 Refill(s), Start Date: 06/27/14 10:25:00 ESTIMATOR, Pharmacy: [facility] Start Date: 06/27/14 Stop Date: [...] Refill(s), Start Date: 05/07/15 11:28:46 CDT, Pharmacy: [facility] Start Date: 05/07/15 Status: OrderedKlor-Con M10 oral tablet, extended release 1 tab(s), Oral, TID, # 270 tab(s), 3 Refill(s), Start Date: 06/27/14 10:26:00 ESTIMATOR, Pharmacy: [facility] Start Date: 06/27/14 Stop Date: 05/07/15 Status: CompletedLumigan 0.03% ophthalmic solution 1 drop(s), OPTH, qPM, # 3 mL, 0 Refill(s) Start Date: 12/24/13 Status: OrderedMetoprolol Succinate ER 100 mg oral tablet, extended release 1 tab(s), Oral, Daily, dose increase, # 90 tab(s), 3 Refill(s), Start Date: 9:24:00 CDT, Pharmacy: [facility] Special Instructions: dose increase Start Date: 01/06/16 Status: OrderedMetoprolol Succinate ER 50 mg oral tablet, extended release 1 tab(s), Oral, Daily, # 90 tab(s), 3 Refill(s), Start Date: 06/27/14 10:00:00 ESTIMATOR, Pharmacy: [facility] Start Date: 06/27/14 Stop Date: 05/28/15 Status: CompletedMetoprolol Succinate ER 50 mg oral tablet, extended release 1 tab(s), Oral, Daily, # 30 tab(s), 0 Refill(s) Start Date: 12/24/13 Stop Date: 06/27/14 Status: DiscontinuedMetoprolol Succinate ER 50 mg oral tablet, extended release 1 tab(s), Oral, Daily, # 90 tab(s), 3 Refill(s), Start Date: 05/28/15 17:27:49 CDT, Pharmacy: [facility] Start Date: 05/28/15 Stop Date: [...] 3 EA, 3 Refill(s), Start Date: 10:00:00 ESTIMATOR, Pharmacy: [facility] Start Date: 06/27/14 Stop Date: [...] tab(s), 3 Refill(s), Start Date: 06/27/14 9:58:00 ESTIMATOR, Pharmacy: [facility] Start Date: 06/27/14 Stop Date: 07/01/15 Status: Completedquinapril 10 mg oral tablet 1 tab(s), Oral, Daily, # 90 tab(s), 3 Refill(s), Start Date: 07/01/15 13:59:49 ESTIMATOR, Pharmacy: [facility] Start Date: 07/01/15 Status: OrderedrOPINIRole 0.5 mg oral tablet 1 tab(s), Oral, HS, 1 to 3 hours before bedtime, # 90 tab(s), 3 Refill(s), Start Date: 07/01/15 9:06:11 ESTIMATOR, Pharmacy: [facility] Special Instructions: 1 to 3 hours before bedtime Start Date: 07/01/15 Stop Date: 01/06/16 Status: DiscontinuedrOPINIRole 0.5 mg oral tablet 1 tab(s), Oral, Daily, # 90 tab(s), 0 Refill(s) Start Date: 12/24/13 Stop Date: 06/27/14 Status: DiscontinuedrOPINIRole 0.5 mg oral tablet 1 tab(s), Oral, Daily, # 90 tab(s), 3 Refill(s), Start Date: 06/27/14 9:59:00 ESTIMATOR, Pharmacy: [facility] Start Date: 06/27/14 Stop Date: 06/12/15 Status: CompletedrOPINIRole 0.5 mg oral tablet 1 tab(s), Oral, Daily, # 90 tab(s), 3 Refill(s), Start Date: 06/12/15 10:54:05 CDT, Pharmacy: [facility] Start Date: 06/12/15 Stop Date: 07/01/15 Status: CompletedtraZODone 50 mg oral tablet 1 tab(s), Oral, HS, # 90 tab(s), 3 Refill(s), Start Date: 06/12/15 10:52:31 CDT , Pharmacy: [facility] Start Date: 06/12/15 Status: OrderedtraZODone 50 mg oral tablet 1 tab(s), Oral, HS, # 30 tab(s), 0 Refill(s) Start Date: 12/24/13 Stop Date: 06/27/14 Status: DiscontinuedtraZODone 50 mg oral tablet 1 tab(s), Oral, HS, # 90 tab(s), 3 Refill(s), Start Date: 06/27/14 9:59:00 ESTIMATOR, Pharmacy: [facility] Start Date: 06/27/14 Stop Date: 06/12/15 Status: CompletedVentolin HFA 90 mcg/inh inhalation aerosol 2 puff(s), Inhale, q4hr, PRN for wheezing, # 3 EA, 3 Refill(s), Start Date: 16:52:00 ESTIMATOR, Pharmacy: [facility] Start Date: 07/04/14 Stop Date: 06/06/15 Status: CompletedVentolin HFA 90 mcg/inh inhalation aerosol 2 puff(s), Inhale, q4hr, PRN for wheezing, # 18 gm, 0 Refill(s), Start Date: 16:51:00 ESTIMATOR Start Date: 07/04/14 Stop Date: 07/04/14 Status: DiscontinuedVentolin HFA 90 mcg/inh inhalation aerosol 2 puff(s), Inhale, q4hr, PRN for wheezing, # 3 EA, 3 Refill(s), Start Date: 12:45:20 CDT, Pharmacy: [facility] Start Date: 06/06/15 Status: Ordered Results No data available for this section Immunizations No data available for this section Procedures Procedure Date Related Diagnosis Body Site Appendectomy Cholecystectomy Hysterectomy1 Tonsillectomy Total knee replacement2 1with ovary [id number] Social History No data available for this section Assessment and Plan No data available for this section
--- OUTSIDE RECORDS SUMMARY | 2016-12-13 07:51 | XMS REPORT | Summary of Care ---
:1930 Author Organization [facility] Address [address] [facility] [address] [place] [address] Care Team Providers Name Role Phone Eliu Estevez Primary Care Physician Encounter Date(s): 01/06/16 - 01/06/16 [facility], [address] [place], [place] [address] Discharge Diagnosis: Hyperlipidemia Discharge Diagnosis: DM - [...] Refill(s), Start Date: 01/07/15 11:31:30 CDT, Pharmacy: [facility] Start Date: 01/07/15 Stop Date: 11/24/15 Status: CompletedAggrenox 25 mg-200 mg oral capsule, extended release 1 cap(s), Oral, BID, # 60 cap(s), 0 Refill(s) Start Date: 12/24/13 Stop Date: 06/27/14 Status: DiscontinuedAggrenox 25 mg-200 mg oral capsule, extended release 1 cap(s), Oral, BID, # 180 cap(s), 3 Refill(s), Start Date: 11/24/15 10:52:09 CDT, Pharmacy: [facility] Start Date: 11/24/15 Status: OrderedAggrenox 25 mg-200 mg oral capsule, extended release 1 cap(s), Oral, BID, # 180 cap(s), 3 Refill(s), Start Date: 06/27/14 10:27:00 ATTENDING ANESTHESIOLOGIST, Pharmacy: [facility] Start Date: 06/27/14 Stop Date: [...] tab(s), 3 Refill(s), Start Date: 07/01/15 13:59:24 ATTENDING ANESTHESIOLOGIST, Pharmacy: [facility] Start Date: 07/01/15 Status: OrderedamLODIPine 10 mg oral tablet 1 tab(s), Oral, Daily, # 90 tab(s), 3 Refill(s), Start Date: 06/27/14 10:27:00 ATTENDING ANESTHESIOLOGIST, Pharmacy: [facility] Start Date: 06/27/14 Stop Date: 07/01/15 Status: Completedatorvastatin 10 mg oral tablet 1 tab(s), Oral, Daily, # 30 tab(s), 0 Refill(s) Start Date: 12/24/13 Stop Date: 06/27/14 Status: Discontinuedatorvastatin 10 mg oral tablet 1 tab(s), Oral, Daily, Due for a appt in , # 90 tab(s), 0 Refill(s), Start Date: 06/04/15 9:08:43 CDT, Pharmacy: [facility] Special Instructions: Due for a appt in Start Date: 06/04/15 Stop Date: 07/01/15 Status: Completedatorvastatin 10 mg oral tablet 1 tab(s), Oral, Daily, # 90 tab(s), 3 Refill(s), Start Date: 06/27/14 10:02:00 ATTENDING ANESTHESIOLOGIST, Pharmacy: [facility] Start Date: 06/27/14 Stop Date: 06/04/15 Status: Completedatorvastatin 10 mg oral tablet 1 tab(s), Oral, Daily, # 90 tab(s), 3 Refill(s), Start Date: 07/01/15 13:58:28 ATTENDING ANESTHESIOLOGIST, Pharmacy: [facility] Start Date: 07/01/15 Status: OrderedAzopt 1% ophthalmic suspension 1 drop(s), OPTH, BID, # 15 mL, 0 Refill(s) Start Date: 12/24/13 Status: OrderedCipro 250 mg oral tablet 1 tab(s), Oral, q12hr, # 14 tab(s), 0 Refill(s), Start Date: 12/26/14 15:31:00 CDT, [place] Start Date: 12/26/14 Stop Date: 07/01/15 Status: DiscontinuedCipro 250 mg oral tablet 1 tab(s), Oral, q12hr, # 14 tab(s), 0 Refill(s), Start Date: 12/26/14 15:31:00 CDT Start Date: 12/26/14 Stop Date: 12/26/14 Status: DiscontinuedGlucotrol XL 5 mg oral tablet, extended release 1 tab(s), Oral, Daily, # 90 tab(s), 3 Refill(s), Start Date: 01/07/15 17:33:53 CDT, Pharmacy: [facility] Start Date: 01/07/15 Stop Date: 12/19/15 Status: CompletedGlucotrol XL 5 mg oral tablet, extended release 1 tab(s), Oral, Daily, # 90 tab(s), 3 Refill(s), Start Date: 12/19/15 14:43:30 CDT, Pharmacy: [facility] Start Date: 12/19/15 Status: OrderedGlucotrol XL 5 mg oral tablet, extended release 1 tab(s), Oral, Daily, # 90 tab(s), 0 Refill(s) Start Date: 12/24/13 Stop Date: 06/27/14 Status: DiscontinuedGlucotrol XL 5 mg oral tablet, extended release 1 tab(s), Oral, Daily, # 30 tab(s), 0 Refill(s), Start Date: 01/07/15 15:13:00 CDT, Pharmacy: [place], [place] Start Date: 01/07/15 Status: OrderedGlucotrol XL 5 mg oral tablet, extended release 1 tab(s), Oral, Daily, # 30 tab(s), 0 Refill(s), Start Date: 01/07/15 15:13:00 CDT Start Date: 01/07/15 Stop Date: 01/07/15 Status: DiscontinuedGlucotrol XL 5 mg oral tablet, extended release 1 tab(s), Oral, Daily, # 90 tab(s), 3 Refill(s), Start Date: 06/27/14 10:25:00 ATTENDING ANESTHESIOLOGIST, Pharmacy: [facility] Start Date: 06/27/14 Stop Date: [...] Refill(s), Start Date: 05/07/15 11:28:46 CDT, Pharmacy: [facility] Start Date: 05/07/15 Status: OrderedKlor-Con M10 oral tablet, extended release 1 tab(s), Oral, TID, # 270 tab(s), 3 Refill(s), Start Date: 06/27/14 10:26:00 ATTENDING ANESTHESIOLOGIST, Pharmacy: [facility] Start Date: 06/27/14 Stop Date: 05/07/15 Status: CompletedLumigan 0.03% ophthalmic solution 1 drop(s), OPTH, qPM, # 3 mL, 0 Refill(s) Start Date: 12/24/13 Status: OrderedMetoprolol Succinate ER 100 mg oral tablet, extended release 1 tab(s), Oral, Daily, dose increase, # 90 tab(s), 3 Refill(s), Start Date: 9:24:00 CDT, Pharmacy: [facility] Special Instructions: dose increase Start Date: 01/06/16 Status: OrderedMetoprolol Succinate ER 50 mg oral tablet, extended release 1 tab(s), Oral, Daily, # 90 tab(s), 3 Refill(s), Start Date: 06/27/14 10:00:00 ATTENDING ANESTHESIOLOGIST, Pharmacy: [facility] Start Date: 06/27/14 Stop Date: 05/28/15 Status: CompletedMetoprolol Succinate ER 50 mg oral tablet, extended release 1 tab(s), Oral, Daily, # 30 tab(s), 0 Refill(s) Start Date: 12/24/13 Stop Date: 06/27/14 Status: DiscontinuedMetoprolol Succinate ER 50 mg oral tablet, extended release 1 tab(s), Oral, Daily, # 90 tab(s), 3 Refill(s), Start Date: 05/28/15 17:27:49 CDT, Pharmacy: [facility] Start Date: 05/28/15 Stop Date: [...] 3 EA, 3 Refill(s), Start Date: 10:00:00 ATTENDING ANESTHESIOLOGIST, Pharmacy: [facility] Start Date: 06/27/14 Stop Date: [...] tab(s), 3 Refill(s), Start Date: 06/27/14 9:58:00 ATTENDING ANESTHESIOLOGIST, Pharmacy: [facility] Start Date: 06/27/14 Stop Date: 07/01/15 Status: Completedquinapril 10 mg oral tablet 1 tab(s), Oral, Daily, # 90 tab(s), 3 Refill(s), Start Date: 07/01/15 13:59:49 ATTENDING ANESTHESIOLOGIST, Pharmacy: [facility] Start Date: 07/01/15 Status: OrderedrOPINIRole 0.5 mg oral tablet 1 tab(s), Oral, HS, 1 to 3 hours before bedtime, # 90 tab(s), 3 Refill(s), Start Date: 07/01/15 9:06:11 ATTENDING ANESTHESIOLOGIST, Pharmacy: [facility] Special Instructions: 1 to 3 hours before bedtime Start Date: 07/01/15 Stop Date: 01/06/16 Status: DiscontinuedrOPINIRole 0.5 mg oral tablet 1 tab(s), Oral, Daily, # 90 tab(s), 0 Refill(s) Start Date: 12/24/13 Stop Date: 06/27/14 Status: DiscontinuedrOPINIRole 0.5 mg oral tablet 1 tab(s), Oral, Daily, # 90 tab(s), 3 Refill(s), Start Date: 06/27/14 9:59:00 ATTENDING ANESTHESIOLOGIST, Pharmacy: [facility] Start Date: 06/27/14 Stop Date: 06/12/15 Status: CompletedrOPINIRole 0.5 mg oral tablet 1 tab(s), Oral, Daily, # 90 tab(s), 3 Refill(s), Start Date: 06/12/15 10:54:05 CDT, Pharmacy: [facility] Start Date: 06/12/15 Stop Date: 07/01/15 Status: CompletedtraZODone 50 mg oral tablet 1 tab(s), Oral, HS, # 90 tab(s), 3 Refill(s), Start Date: 06/12/15 10:52:31 CDT , Pharmacy: [facility] Start Date: 06/12/15 Status: OrderedtraZODone 50 mg oral tablet 1 tab(s), Oral, HS, # 30 tab(s), 0 Refill(s) Start Date: 12/24/13 Stop Date: 06/27/14 Status: DiscontinuedtraZODone 50 mg oral tablet 1 tab(s), Oral, HS, # 90 tab(s), 3 Refill(s), Start Date: 06/27/14 9:59:00 ATTENDING ANESTHESIOLOGIST, Pharmacy: [facility] Start Date: 06/27/14 Stop Date: 06/12/15 Status: CompletedVentolin HFA 90 mcg/inh inhalation aerosol 2 puff(s), Inhale, q4hr, PRN for wheezing, # 3 EA, 3 Refill(s), Start Date: 16:52:00 ATTENDING ANESTHESIOLOGIST, Pharmacy: [facility] Start Date: 07/04/14 Stop Date: 06/06/15 Status: CompletedVentolin HFA 90 mcg/inh inhalation aerosol 2 puff(s), Inhale, q4hr, PRN for wheezing, # 18 gm, 0 Refill(s), Start Date: 16:51:00 ATTENDING ANESTHESIOLOGIST Start Date: 07/04/14 Stop Date: 07/04/14 Status: DiscontinuedVentolin HFA 90 mcg/inh inhalation aerosol 2 puff(s), Inhale, q4hr, PRN for wheezing, # 3 EA, 3 Refill(s), Start Date: 12:45:20 CDT, Pharmacy: [facility] Start Date: 06/06/15 Status: Ordered Results No data available for this section Immunizations No data available for this section Procedures Procedure Date Related Diagnosis Body Site Appendectomy Cholecystectomy Hysterectomy1 Tonsillectomy Total knee replacement2 1with ovary [id number] Social History No data available for this section Assessment and Plan No data available for this section
[2016-12-13 07:52] LABS: Hematocrit 42.1 % (37.0-47.0); Mean Cell Volume 81.3 fl (78-100); Mean Corpuscular Hgb Conc 35.6 g/dl (32-36); Neutrophil # 8.5 K/mm3 (1.3-6.0); Neutrophil % 72.9 % (42-75.0); Platelet Count 160 K/mm3 (150-450); Red Blood Count 5.18 M/mm3 (4.2-5.4); Red Cell Distribution Width 14.8 % (11.5-14.0); White Blood Count 11.6 K/mm3 (4.0-10.5)
[2016-12-13 08:15] LABS: Troponin I Less than 0.017 ng/ml (0.00-0.10)
[2016-12-13 08:19] LABS: ALT 20 U/L (19-67); AST 32 U/L (0-48); Albumin * 3.8 gm/dl (3.4-5.0); Alkaline Phosphatase * 66 U/L (50-170); Anion Gap 15.2 mmol/L (6.8-13.8); BUN/Creatinine Ratio 16.5 (9.0-21.6); Bilirubin, Total 1.1 mg/dL (0.0-1.1); Blood Urea Nitrogen 20 mg/dL (3-23); Ca. Corrected For Albumin 8.9 mg/dL (8.4-10.2); Calcium * 9.1 mg/dL (7.9-10.9); Carbon Dioxide 25.4 mmol/L (24-32.6); Chloride 108 mmol/L (97-106); Glucose * 172 mg/dL (70-110); Potassium 3.6 mmol/L (3.4-4.6); Sodium 145 mmol/L (132-142); TSH * 2.002 uIU/mL (0.358-3.74); Total Protein 7.3 gm/dL (6.2-8.2)
[2016-12-13] MEDS ORDERED: ORPHENADRINE CITRATE 30 MG/ML VIAL ONE (08:50)
[2016-12-13] MEDS ORDERED: ORPHENADRINE CITRATE 30 MG/ML VIAL IV ONE (08:50)
[2016-12-13 10:35] LABS: Urine Bilirubin 1 mg/dl (NEGATIVE); Urine Ketone Negative (NEGATIVE); Urine Protein 100 mg/dL (NEGATIVE); Urine Specific Gravity >=1.030 SP.GR. (1.005-1.010); Urine Urobilinogen Normal (NORMAL); Urine pH 5.5 pH (5.0-7.0)
[2016-12-13 10:43] LABS: Urine Appearance Slightly Cloudy; Urine Blood 10 /ul (NEGATIVE); Urine Color Dark Yellow; Urine Nitrite Positive (NEGATIVE)
[2016-12-13 10:44] LABS: Urine Bacteria 2+; Urine RBC 0-5 /hpf (0-5); Urine WBC 0-5 /hpf (0-5)
[2016-12-13] MEDS ORDERED: NORMAL SALINE 1,000 ML IV ONE (11:18)
--- OUTSIDE RECORDS SUMMARY | 2016-12-13 11:56 | XMS REPORT | Continuity of Care Document ---
:1930 Author Organization [facility] ([facility]) Address [address] [place] [address] Phone [phone] Care Team Providers Name Role Phone Unavailable Primary Care Provider Unavailable Source Comments This disclosure is being made pursuant to the Care Everywhere program, applicable federal and state laws, and may not contain all informaitonavailable regarding this patient.[facility] ([facility]) Active Allergies and Adverse Reactions Allergen Noted [...]
[2016-12-13] MEDS: 0.5 NORMAL SALINE 1,000 ML IV PRN (15:21)
--- NOTE | 2016-12-13 16:01 | HP ---
Chief Complaint - Chief Complaint Date of Service: 12/13/16 Time of Service: 16:00 Chief Complaint: right buttock/ leg pain History of Present Illness: Maral Gastelum, is an 86-year-old -[place] female, with previous medical history of diabetes mellitus type 2, hyperlipidemia, hypertension, degenerative osteoarthritis, sciatica who was admitted on 2016 because of right buttock pain and right leg pain. The patient says that about 3 weeks ago she again experienced pain from her right buttocks running down her lateral thigh to her legs just like when she had her sciatica 3 years ago. She says ait its worst it will be 12/10 but now is 5/10. It is increased with activity. It is gnawing in quality. She said that this went away when she had an injection then in 2013. She was brought to the emergency room because of the pain and because she was afraid that that she might fall down and break a hip. In the emergency room her CT scan of her head showed an old left lacunar basal ganglia infarct. Her urinalysis showed a urinary tract infection. And she was also found to be in atrial fibrillation, new onset with RVR. She was given IV ketorolac, IV dlitiazem bolus. She was then admitted for further workup and referral to physical therapy. - Patient's Past Medical History Patient History - Medical: Diabetes Type 2, Hypothyroidism, Obesity, Other Patient History - Cardiac/Respiratory: Asthma, CVA/Stroke, Hypertension Patient History - Cancer: No Hx of Cancer Patient History - Surgical Procedures: Cholecystectomy, Hysterectomy, Total Knee Replacement, T & A Patient History - Other: None LMP (females 10-50): Menopausal - Family History Mother Family History - Medical: , Diabetes Type 2 Father Family History - Medical: Family History - Cardiac/Respiratory: COPD - Social History Living Situations: home Abuse History: No History of abuse Psych History: No pertinent hx Smoking Status: Never smoker Have you smoked in the past 12 months: No Do you dip or chew tobacco: No Alcohol Use: none Drug Use: none - Immunizations Immunizations Up to Date: Yes Hx Pneumococcal Vaccination: Yes History of Influenza Vaccine: Yes Review Of Systems (GEN) - Review of Systems Generalized/Overall Review: Absent: Chills, Fever EENTM: Present: No Symptoms Reported Respiratory: Absent: Cough, Shortness of Breath, Orthopnea Cardiac: Absent: Chest Pain, Edema, Palpitations Abdominal: Absent: Nausea, Vomiting Genitourinary: Absent: Urgency, Frequency Musculoskeletal: Present: Joint Pain, Back Pain Neurological: Absent: Headache, Numbness, Tingling Allergies/Adverse Reactions: Allergies Allergy/AdvReac Type Severity Reaction Status Date / Time penicillin G Allergy Unknown Verified 12/13/16 13:14 Home Medications: HOME MEDICATIONS Albuterol Sulfate [Proventil Hfa] 6.7 gm IH QID 12/13/16 [Last Taken 12/12/16] Amlodipine Besylate 10 mg PO DAILY 12/13/16 [Last Taken 12/13/16] Aspirin/Dipyridamole [Aggrenox] 1 cap PO BID 12/13/16 [Last Taken 12/13/16] Atorvastatin Calcium [Lipitor] 10 mg PO DAILY 12/13/16 [Last Taken 12/13/16] Metoprolol Succinate [Toprol Xl] 50 mg PO DAILY 12/13/16 [Last Taken 12/13/16] Potassium Chloride [Klor-Con 10] 10 meq PO TID 12/13/16 [Last Taken 12/13/16] Quinapril HCl [Accupril] 10 mg PO DAILY 12/13/16 [Last Taken 12/13/16] glipiZIDE [Glipizide] 5 mg PO DAILY 12/13/16 [Last Taken 12/13/16] traZODone HCL [Trazodone HCl] 50 mg PO HS 12/13/16 [Last Taken 12/12/16] Exam - Exam Vital Signs: Vital Signs - Last Taken Temp 37.2 C 12/13/16 12:55 Pulse 87 12/13/16 13:00 Resp 16 12/13/16 12:55 BP 156/84 12/13/16 12:55 Pulse Ox 97 12/13/16 12:55 Constitutional: Present: Alert, Oriented x3, Cooperative, Elderly, Obese ENT Exam: Present: hearing grossly normal Eye Exam: bilateral eye: normal inspection, PERRL, EOMI Neck: Present: supple Back Exam: Present: no CVA tenderness Breasts: Present: Exam deferred Respiratory: Present: decreased breath sounds, No rales, No wheezing Cardiovascular/Chest: Present: no JVD, no murmur, irregularly irregular Abdomen: Present: Normal bowel sounds, soft, nontender, nondistended Extremity: Present: no pedal edema, no calf tenderness Diagnostic Studies: Laboratory Results WBC 11.6 K/mm3 (4.0-10.5) H 12/13/16 07:45 RBC 5.18 M/mm3 (4.2-5.4) 12/13/16 07:45 Hgb 15.0 gm/dL (12.5-16.0) 12/13/16 07:45 Hct 42.1 % (37.0-47.0) 12/13/16 07:45 MCV 81.3 fl (78-100) 12/13/16 07:45 MCH 29.0 pg (27-31) 12/13/16 07:45 MCHC 35.6 g/dl (32-36) 12/13/16 07:45 RDW 14.8 % (11.5-14.0) H 12/13/16 07:45 Plt Count 160 K/mm3 (150-450) 12/13/16 07:45 MPV 10.0 fl (6.0-9.5) H 12/13/16 07:45 Immature Gran % (Auto) 0.30 % (0.001-0.429) 12/13/16 07:45 Immature Gran # (Auto) 0.03 K/mm3 (0.000-0.0310) 12/13/16 07:45 Neutrophils % 72.9 % (42-75.0) 12/13/16 07:45 Lymphocytes % 17.3 % (20-51) L 12/13/16 07:45 Monocytes % 7.3 % (0.0-9) 12/13/16 07:45 Eosinophils % 1.9 % (0.0-3.0) 12/13/16 07:45 Basophils % 0.3 % (0.0-1.0) 12/13/16 07:45 Nucleated RBC % 0.0 k/mm3 (0-1) 12/13/16 07:45 Neutrophils # 8.5 K/mm3 (1.3-6.0) H 12/13/16 07:45 Lymphocytes # 2.0 k/mm3 (1.5-3.5) 12/13/16 07:45 Monocytes # 0.9 k/mm3 (0.0-1.0) 12/13/16 07:45 Eosinophils # 0.2 k/mm3 (0.0-0.7) 12/13/16 07:45 Absolute Basophils 0.0 k/mm3 (0.0-0.1) 12/13/16 07:45 Sodium 145 mmol/L (132-142) H 12/13/16 07:45 Plasma Sodium 146 mmol/L (130-142) H 12/13/16 07:45 Potassium 3.6 mmol/L (3.4-4.6) 12/13/16 07:45 Chloride 108 mmol/L (97-106) H 12/13/16 07:45 Carbon Dioxide 25.4 mmol/L (24-32.6) 12/13/16 07:45 Anion Gap 15.2 mmol/L (6.8-13.8) H 12/13/16 07:45 BUN 20 mg/dL (3-23) 12/13/16 07:45 Creatinine 1.21 mg/dL (0.4-1.4) 12/13/16 07:45 Est GFR (Non-Af Amer) 54 mL/min (60-130) L 12/13/16 07:45 BUN/Creatinine Ratio 16.5 (9.0-21.6) 12/13/16 07:45 Random Glucose 172 mg/dL (70-110) H 12/13/16 07:45 Lactic Acid, Venous 1.4 mmol/L (0.4-1.9) 12/13/16 13:10 Calcium 9.1 mg/dL (7.9-10.9) 12/13/16 07:45 Calcium Adj for Albumin 8.9 mg/dL (8.4-10.2) 12/13/16 07:45 Magnesium 1.8 mg/dL (1.2-2.8) 12/13/16 10:21 Total Bilirubin 1.1 mg/dL (0.0-1.1) 12/13/16 07:45 AST 32 U/L (0-48) 12/13/16 07:45 ALT 20 U/L (19-67) 12/13/16 07:45 Alkaline Phosphatase 66 U/L (50-170) 12/13/16 07:45 Troponin I Less than 0.017 ng/ml (0.00-0.10) 12/13/16 07:45 Total Protein 7.3 gm/dL (6.2-8.2) 12/13/16 07:45 Albumin 3.8 gm/dl (3.4-5.0) 12/13/16 07:45 TSH 2.002 uIU/mL (0.358-3.74) 12/13/16 07:45 Urine Color Dark yellow 12/13/16 10:26 Urine Appearance Slightly cloudy 12/13/16 10:26 Urine pH 5.5 pH (5.0-7.0) 12/13/16 10:26 Ur Specific [place] >=1.030 SP.GR. (1.005-1.010) 12/13/16 10:26 Urine Protein 100 mg/dL (NEGATIVE) H 12/13/16 10:26 Urine Glucose (UA) Negative mg/dL (NEGATIVE) 12/13/16 10:26 Urine Ketones Negative mg/dL (NEGATIVE) 12/13/16 10:26 Urine Blood 10 /ul (NEGATIVE) H 12/13/16 10:26 Urine Nitrate Positive (NEGATIVE) H 12/13/16 10:26 Urine Bilirubin 1 mg/dl (NEGATIVE) H 12/13/16 10:26 Urine Ictotest Negative (NEGATIVE) 12/13/16 10:26 Prot Sulfosalicylic Acd 2+ mg/dL (0) H 12/13/16 10:26 Urine Urobilinogen Normal EU/dl (NORMAL) 12/13/16 10:26 Ur Leukocyte Esterase Negative /ul (NEGATIVE) 12/13/16 10:26 Urine RBC 0-5 /hpf (0-5) 12/13/16 10:26 Urine WBC 0-5 /hpf (0-5) 12/13/16 10:26 Ur Epithelial Cells None seen /hpf (0-5) 12/13/16 10:26 Urine Bacteria 2+ (NONE) H 12/13/16 10:26 Urine Culture Comments Culture to follow 12/13/16 10:26 Assessment/Plan - Assessment/Plan (1) Atrial fibrillation with RVR Assessment: will start her on anticoagulation, restart her metoprolol, and will schedule an Echo with Bubble study . Problem: Acute (2) CVA (cerebral vascular accident) Assessment: she is on aggrenox. due to her AFib consider Coumadin or one of the newer anticoagulants. will start coumadin for now. Problem: Chronic Qualifiers: CVA mechanism: occlusion Precerebral and cerebral artery: unspecified cerebral artery Qualified Code(s): I63.50 - Cerebral infarction due to unspecified occlusion or stenosis of unspecified cerebral artery (3) Falls frequently Assessment: due to her pain , her leg will give out. refer to PT Problem: Acute (4) Sciatica Assessment: will do a follow up MRI of her Lumbar spine. There is a question of sacral 5 fracture. continue with pain meds and refer to PT. may need a referral to anestheosia for a repeat NANY , L3-L4 pending MRI results. Problem: Acute Qualifiers: Laterality: right Qualified Code(s): M54.31 - Sciatica, right side (5) UTI (urinary tract infection) Assessment: will start her on IV Cipro pending UCS. Problem: Acute Qualifiers: Urinary tract infection type: acute cystitis Hematuria presence: without hematuria Qualified Code(s): N30.00 - Acute cystitis without hematuria (6) Diabetes mellitus type 2 in obese Assessment: will restart her on her home medciations-glipizide Problem: Chronic (7) Hypertension Assessment: will restart her metoprolol, amlodipine, quinapril. Problem: Chronic Qualifiers: Hypertension type: essential hypertension Qualified Code(s): I10 - Essential (primary) hypertension (8) Hyperlipidemia Assessment: restart her atorvastatin. Problem: Chronic Qualifiers: Hyperlipidemia type: mixed hyperlipidemia Qualified Code(s): E78.2 - Mixed hyperlipidemia
[2016-12-13] MEDS ORDERED: oxyCODONE HCL/ACETAMINOPHEN 1 TAB TABLET PO PRN (16:45)
[2016-12-13 16:51] LABS: INR 1.06 INR (0.90-1.10)
[2016-12-13] MEDS: ACETAMINOPHEN 325 MG TABLET PO PRN (16:55)
[2016-12-13] MEDS ORDERED: NON-FORMULARY 1 DOSE DOSE (Potassium Chloride [Klor-Con 10] 10 MEQ) PO SCH (17:00)
[2016-12-13] MEDS: POTASSIUM CHLORIDE 10 MEQ TABLET.SA PO SCH (17:20)
[2016-12-13] MEDS: WARFARIN SODIUM 5 MG TABLET PO SCH (17:20)
[2016-12-13] MEDS: CIPROFLOXACIN LACTATE/D5W 400 MG/200 ML BAG IV SCH (17:20)
[2016-12-13] MEDS: PREGABALIN 75 MG CAPSULE PO SCH (20:49)
[2016-12-13] MEDS ORDERED: traZODone HCL 50 MG TABLET PO SCH (21:00)
[2016-12-13] MEDS ORDERED: ASPIRIN PO SCH (21:00)
[2016-12-13] MEDS ORDERED: DIPYRIDAMOLE PO SCH (21:00)
[2016-12-14] MEDS: CIPROFLOXACIN LACTATE/D5W 400 MG/200 ML BAG IV SCH ×2 (03:45→16:18)
[2016-12-14] MEDS: 0.5 NORMAL SALINE 1,000 ML IV PRN ×2 (03:48→16:13)
[2016-12-14 06:07] LABS: Hematocrit 33.6 % (37.0-47.0); Hemoglobin 11.9 gm/dL (12.5-16.0); Mean Cell Volume 82.4 fl (78-100); Mean Corpuscular Hemoglobin 29.2 pg (27-31); Mean Corpuscular Hgb Conc 35.4 g/dl (32-36); Mean Platelet Volume 10.1 fl (6.0-9.5); Neutrophil # 4.3 K/mm3 (1.3-6.0); Neutrophil % 61.5 % (42-75.0); Platelet Count 117 K/mm3 (150-450); Red Blood Count 4.08 M/mm3 (4.2-5.4); Red Cell Distribution Width 14.9 % (11.5-14.0); White Blood Count 6.9 K/mm3 (4.0-10.5)
[2016-12-14 06:20] LABS: INR 1.15 INR (0.90-1.10)
[2016-12-14 06:29] LABS: Anion Gap 13.7 mmol/L (6.8-13.8); Calcium * 8.3 mg/dL (7.9-10.9); Chol/HDL Risk Ratio 2.3 mg/dL (3.3-4.4); Estimated Creat Clear 27.2; Potassium 3.7 mmol/L (3.4-4.6)
--- NOTE | 2016-12-14 08:52 | PN ---
Subjective - Date and Time Seen Date: 12/14/16 Time: 08:43 Subjective Narrative: resting in bed. niece, bryant, at bedside. niece states aunt had back pain last night and was given pain pill that has made her very sleepy - has been resting since given pain med (percocet). Objective - Review of Systems Generalized/Overall Review: Reports: Weakness EENTM: Reports: No Symptoms Reported Respiratory: Reports: No Symptoms Reported Cardiac: Reports: No Symptoms Reported Abdominal: Reports: No Symptoms Reported Genitourinary Symptoms: Reports: No Symptoms Reported Musculoskeletal Complaints: Reports: Back Pain Neurological: Reports: No Symptoms Reported Skin: Reports: No Symptoms Reported Endocrine: Reports: No Symptoms Reported Misc: All systems neg except as marked - Vitals Vitals: Last Vital Signs Temp 36.8 C 12/14/16 07:11 Pulse 57 L 12/14/16 07:33 Resp 18 12/14/16 07:11 BP 142/77 12/14/16 07:11 Pulse Ox 94 12/14/16 07:11 - Abnormal Lab Findings Abnormal Lab Findings: Abnormal Lab Results Laboratory Tests 12/14/16 06:02 WBC 6.9 D Hgb 11.9 L Hct 33.6 L Plt Count 117 L INR (Anticoag Therapy) 1.15 Sodium 142 Potassium 3.7 Chloride 106 Carbon Dioxide 26.0 BUN 19 Creatinine 1.12 Random Glucose 129 LDL Cholesterol 34 HDL Cholesterol 36 - EKG/Xray Findings EKG: atrial fibrillation EKG read: Interp. by me - Exam Constitutional: Present: Alert, Oriented x3 ENT Exam: Present: hearing grossly normal Neck: Present: supple, normal inspection Breasts: Present: Exam deferred Respiratory: Present: lungs clear, normal breath sounds, no respiratory distress Cardiovascular/Chest: Present: normal peripheral pulses, irregularly irregular Abdomen: Present: soft, nontender, nondistended /Rectal: Present: Exam deferred Extremity: Present: non-tender, no pedal edema Skin Exam: Present: warm/dry, no cyanosis Assessment/Plan Plan Narrative: Atrial fibrillation - heart rate currently controlled - on metoprolol - echo pending. - on coumadin, pharmacy to dose. INR 12/14/16 1.15 - ? CVA from afib vs weakness from lumbar sciatica with possible S5 fracture - MRI pending. - monitor on telemetry, vital signs q 4 hours CVA - remote left basal ganglia lacunar infarct seen on CT of head 12/13/16 - c/o weakness - ? due to CVA vs sciatica vs possible S5 fracture - MRI of brain and MRI of lumbar spine pending. - continue PT - continue coumadin, pharmacy to dose. - carotids and echo with bubble study pending Sciatica - history of chronic back pain that has responded to NANY in the past. - possible acute S5 fracture - awaiting lumbar MRI today - mobilize with PT - percocet as needed for pain frequent falls - mobilize with physical therapy - ? home vs SNF. UTI - currently on IV cipro Day #2 - prelim urine culture growing gram negative bacili -await final urine culture DM type 2 - cont glipizide HTN - cont metoprolol, amlodipine, and quinapril HLD - cont atorvastatin Code status: DNR VTE: Lovenox - Problems/Diagnosis (1) Atrial fibrillation with RVR Problem: Acute (2) Falls frequently Problem: Acute (3) Sciatica Problem: Acute Qualifiers: Laterality: right Qualified Code(s): M54.31 - Sciatica, right side (4) UTI (urinary tract infection) Problem: Acute Qualifiers: Urinary tract infection type: acute cystitis Hematuria presence: without hematuria Qualified Code(s): N30.00 - Acute cystitis without hematuria (5) CVA (cerebral vascular accident) Problem: Chronic Qualifiers: CVA mechanism: occlusion Precerebral and cerebral artery: unspecified cerebral artery Qualified Code(s): I63.50 - Cerebral infarction due to unspecified occlusion or stenosis of unspecified cerebral artery (6) Diabetes mellitus type 2 in obese Problem: Chronic (7) Hyperlipidemia Problem: Chronic Qualifiers: Hyperlipidemia type: mixed hyperlipidemia Qualified Code(s): E78.2 - Mixed hyperlipidemia (8) Hypertension Problem: Chronic Qualifiers: Hypertension type: essential hypertension Qualified Code(s): I10 - Essential (primary) hypertension
[2016-12-14] MEDS ORDERED: amLODIPine BESYLATE 10 MG TABLET PO SCH (09:00)
[2016-12-14] MEDS ORDERED: ATORVASTATIN CALCIUM 10 MG TABLET PO SCH (09:00)
[2016-12-14] MEDS ORDERED: METOPROLOL SUCCINATE 50 MG TABLET.SA PO SCH (09:00)
[2016-12-14] MEDS ORDERED: ROSUVASTATIN CALCIUM 10 MG TABLET PO SCH (09:00)
[2016-12-14] MEDS ORDERED: glipiZIDE 5 MG TABLET PO SCH (09:00)
[2016-12-14] MEDS ORDERED: ENOXAPARIN SODIUM 30 MG/0.3 ML SYRG SC SCH (09:00)
[2016-12-14] MEDS ORDERED: ENALAPRIL MALEATE 5 MG TABLET PO SCH (09:00)
[2016-12-14] MEDS ORDERED: QUINAPRIL HCL 10 MG PO SCH (09:00)
[2016-12-14] MEDS ORDERED: SACCHAROMYCES BOULARDII 250 MG CAPSULE PO SCH (09:30)
[2016-12-14] MEDS: POTASSIUM CHLORIDE 10 MEQ TABLET.SA PO SCH ×3 (09:53→16:27)
[2016-12-14] MEDS: ACETAMINOPHEN 325 MG TABLET PO PRN (09:53)
[2016-12-14] MEDS: PREGABALIN 75 MG CAPSULE PO SCH (09:56)
[2016-12-14] MEDS ORDERED: ONDANSETRON HCL/PF 2 MG/ML VIAL IV PRN (13:41)
[2016-12-14 15:00] VITALS: BP 121/75
[2016-12-14] MEDS ORDERED: oxyCODONE HCL/ACETAMINOPHEN 1 TAB TABLET PO ONE (15:30)
[2016-12-14] MEDS ORDERED: ONDANSETRON HCL/PF 2 MG/ML VIAL IV ONE (15:30)
--- NOTE | 2016-12-14 15:30 | PN ---
Addendum entered and electronically signed by Lelo Daigle ARNP 12/14/16 16: 57: spoke with Johanna at [facility] - they declined to accept pt. call [facility]. report called to Dr. Washington, who accepted pt for transfer. family update on change. Original Note: Progess Note - Interim Narrative: 12/14/16 15:24 mri of brain was negative for cva. mri of lumbar spine showed: IMPRESSION: 1. NO EVIDENCE FOR ACUTE TRAUMA OR ACUTE FRACTURE FRACTURE/COMPRESSION DEFORMITY IDENTIFIED IN THE LUMBAR SPINE. 2. 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 3. THIS HAS PROGRESSED FROM THE PRIOR 2013 EXAM. THE HIGHEST DEGREE OF CENTRAL CANAL SPINAL STENOSIS OCCURS AT L3-4 WITH ESSENTIALLY COMPLETE LOSS OF THE CENTRAL CANAL WITH COMPRESSION OF THE TRAVERSING NERVE ROOTS TO THIS AREA. ADDITIONAL NEURAL FORAMINAL SPINAL STENOSIS AND COMPRESSION OF MULTIPLE EXITING NERVE ROOTS IS ALSO IDENTIFIED. pt unable to lift left leg off bed. pt minimally able to lift right leg off bed. pt not able to dorsiflex feet bilat. physical therapy notes show that patient was stand by assist on 12/13/16 to edge of bed but on 12/14/16 is mod to max assist of 2-3 people to edge of bed. due to this significant change and results of lumbar spine MRI, dr. olsen was contacted for recommendations. Dr. Olsen recommended transfer of pt to [facility] for spinal surgeon consult. discussed this with patient and family in room. pt agreed to go to [facility] for spinal surgeon consult.
[2016-12-14] MEDS: WARFARIN SODIUM 5 MG TABLET PO SCH (16:26)
--- NOTE | 2016-12-14 16:40 | DS ---
Transfer Discharge Summary - Diagnosis(s)/Problems (1) Atrial fibrillation with RVR Problem: Acute (2) Falls frequently Problem: Acute (3) Sciatica Problem: Acute (4) UTI (urinary tract infection) Problem: Acute (5) CVA (cerebral vascular accident) Problem: Chronic (6) Diabetes mellitus type 2 in obese Problem: Chronic (7) Hyperlipidemia Problem: Chronic (8) Hypertension Problem: Chronic - Course Description of Stay: Date of admission: 12/13/16 Date of discharge: 12/14/16 Description of Stay: 12/13/16 octaviano is an 86 year old female who presented to the ER with c/o right buttock and right leg pain that has been increasing for the last [address] of the head showed old left lacunar basal ganglia infarct. UA c/w UTI. ekg showed afib with rvr - given iv cardizem bolus. admitted for further work up. started on coumadin. restarted on metoprolol for rate control. echo with bubble study, carotid study both pending. iv cipro ordered for UTI treatment. 12/14/16 c/o increasing leg weakness. mri of brain was negative for cva. mri of lumbar spine showed: IMPRESSION: 1. NO EVIDENCE FOR ACUTE TRAUMA OR ACUTE FRACTURE FRACTURE/COMPRESSION DEFORMITY IDENTIFIED IN THE LUMBAR SPINE. 2. 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 3. THIS HAS PROGRESSED FROM THE PRIOR 2013 EXAM. THE HIGHEST DEGREE OF CENTRAL CANAL SPINAL STENOSIS OCCURS AT L3-4 WITH ESSENTIALLY COMPLETE LOSS OF THE CENTRAL CANAL WITH COMPRESSION OF THE TRAVERSING NERVE ROOTS TO THIS AREA. ADDITIONAL NEURAL FORAMINAL SPINAL STENOSIS AND COMPRESSION OF MULTIPLE EXITING NERVE ROOTS IS ALSO IDENTIFIED. pt unable to lift left leg off bed. pt minimally able to lift right leg off bed. pt not able to dorsiflex feet bilat. physical therapy notes show that patient was stand by assist on 12/13/16 to edge of bed but on 12/14/16 is mod to max assist of 2-3 people to edge of bed. due to this significant change and results of lumbar spine MRI, dr. olsen was contacted for recommendations. Dr. Olsen recommended transfer of pt to [facility] for spinal surgeon consult. discussed this with patient and family in room. pt agreed to go to [facility] for spinal surgeon consult. spoke with Johanna at [facility] - they declined to accept pt. call [facility]. report called to Dr. Washington, who accepted pt for transfer. family update on change. Procedures Performed: none - Results and Findings Results and Findings: Laboratory Results - last 24 hr 12/14/16 12/14/16 12/14/16 06:02 06:02 06:02 WBC 6.9 D RBC 4.08 L Hgb 11.9 L Hct 33.6 L MCV 82.4 MCH 29.2 MCHC 35.4 RDW 14.9 H Plt Count 117 L MPV 10.1 H Immature Gran % (Auto) 0.40 Immature Gran # (Auto) 0.03 Neutrophils % 61.5 Lymphocytes % 26.6 Monocytes % 9.0 Eosinophils % 2.2 Basophils % 0.3 Nucleated RBC % 0.0 Neutrophils # 4.3 Lymphocytes # 1.8 Monocytes # 0.6 Eosinophils # 0.2 Absolute Basophils 0.0 PT 12.0 H INR (Anticoag Therapy) 1.15 H Sodium 142 Plasma Sodium 142 Potassium 3.7 Chloride 106 Carbon Dioxide 26.0 Anion Gap 13.7 BUN 19 Creatinine 1.12 Est GFR (Non-Af Amer) 59 L BUN/Creatinine Ratio 17.0 Random Glucose 129 H Calcium 8.3 Triglycerides 68 Cholesterol 84 LDL Cholesterol 34 L VLDL Cholesterol 14 HDL Cholesterol 36 L Cholesterol/HDL Ratio 2.3 L - Medications Medications: Active Medications Acetaminophen (Tylenol) 650 mg PO Q6H PRN PRN Reason: Mild pain Stop: 01/12/17 16:15 Last Admin: 12/14/16 09:53 Dose: 650 mg Amlodipine Besylate (Norvasc) 10 mg PO DAILY [facility] Stop: 01/13/17 09:01 Last Admin: 12/14/16 09:54 Dose: 10 mg Dexamethasone Sodium Phosphate (Decadron) 10 mg IV ONCE ONE Stop: 12/14/16 16:46 Last Admin: 12/14/16 16:17 Dose: 10 mg Enalapril Maleate (Vasotec) 10 mg PO DAILY [facility] Stop: 01/13/17 09:01 Last Admin: 12/14/16 09:54 Dose: 10 mg Enoxaparin Sodium (Lovenox) 30 mg SC Q24H [facility] Stop: 01/13/17 09:01 Last Admin: 12/14/16 09:54 Dose: 30 mg Glipizide (Glucotrol) 5 mg PO DAILY [facility] Stop: 01/13/17 09:01 Last Admin: 12/14/16 09:54 Dose: 5 mg Sodium Chloride (Sodium Chloride 0.45%) 1,000 mls @ 100 mls/hr IV .Q10H PRN PRN Reason: HYDRATION Stop: 01/12/17 14:54 Last Admin: 12/14/16 16:13 Dose: 100 mls/hr Ciprofloxacin/Dextrose (Cipro) 400 mg in 200 mls @ 200 mls/hr IV Q12H RANDI PRN Reason: Protocol Stop: 01/12/17 16:31 Last Admin: 12/14/16 16:18 Dose: 200 mls/hr Metoprolol Succinate (Toprol Xl) 50 mg PO DAILY [facility] Stop: 01/13/17 09:01 Last Admin: 12/14/16 09:53 Dose: 50 mg Ondansetron HCl (Zofran) 4 mg IV Q4H PRN PRN Reason: Nausea Stop: 01/13/17 13:42 Last Admin: 12/14/16 13:47 Dose: 4 mg Oxycodone/Acetaminophen (Percocet 5 Mg/325 Mg) 1 tab PO Q6H PRN PRN Reason: Moderate Pain Stop: 01/12/17 16:46 Last Admin: 12/14/16 00:22 Dose: 1 tab Potassium Chloride (Klor-Con 10) 10 meq PO TID [facility] Stop: 01/12/17 17:01 Last Admin: 12/14/16 16:27 Dose: Not Given Pregabalin (Lyrica) 75 mg PO BID [facility] Stop: 01/12/17 21:01 Last Admin: 12/14/16 09:56 Dose: 75 mg Rosuvastatin Calcium (Crestor) 5 mg PO DAILY [facility] Stop: 01/13/17 09:01 Last Admin: 12/14/16 09:53 Dose: 5 mg Saccharomyces Boulardii (Florastor) 250 mg PO BID [facility] Stop: 01/13/17 09:31 Last Admin: 12/14/16 09:54 Dose: 250 mg Trazodone HCl (Desyrel) 50 mg PO HS [facility] Stop: 01/12/17 21:01 Last Admin: 12/13/16 20:48 Dose: 50 mg Warfarin Sodium (Coumadin) 5 mg PO DAILY@1700 RANDI Stop: 01/12/17 17:01 Last Admin: 12/14/16 16:26 Dose: Not Given Discontinued Medications Diltiazem HCl (Cardizem) 10 mg IV ONCE ONE Stop: 12/13/16 07:40 Last Admin: 12/13/16 07:52 Dose: 10 mg Sodium Chloride (Sodium Chloride 0.9%) 1,000 mls @ 125 mls/hr IV .Q8H ONE Stop: 12/13/16 19:17 Last Infusion: 12/13/16 15:27 Dose: Infused Ketorolac Tromethamine (Toradol) 30 mg IM ONCE ONE Stop: 12/13/16 07:42 Last Admin: 12/13/16 07:50 Dose: Not Given Ketorolac Tromethamine (Toradol) 15 mg IV ONCE ONE Stop: 12/13/16 07:50 Last Admin: 12/13/16 07:50 Dose: 15 mg Ketorolac Tromethamine (Toradol) 15 mg IV ONCE ONE Stop: 12/13/16 08:51 Last Admin: 12/13/16 08:57 Dose: 15 mg Ondansetron HCl (Zofran) 4 mg IV ONCE ONE Stop: 12/14/16 15:31 Last Admin: 12/14/16 16:13 Dose: 4 mg Orphenadrine Citrate (Norflex) 60 mg IV ONCE ONE Stop: 12/13/16 08:51 Last Admin: 12/13/16 08:57 Dose: 60 mg Oxycodone/Acetaminophen (Percocet 5 Mg/325 Mg) 1 tab PO ONCE ONE Stop: 12/14/16 15:31 Last Admin: 12/14/16 16:13 Dose: 1 tab - Disposition Disposition: [facility] Condition: Undetermined Discharge Date: 12/14/16 Discharge Time: 18:35
[2016-12-14] MEDS ORDERED: DEXAMETHASONE SOD PHOSPHATE 10 MG/ML VIAL IV ONE (16:45)
--- NOTE | 2016-12-15 13:40 | ECHO ---
This report is available in the EMR
== END 2016-12-14 18:35 | disposition short-term general hospital (02) | DRG 74 ==
LOC: ER 07:01 → MS 11:50
PROVIDERS: ADMIT Internal Medicine; ATTEND Internal Medicine
PROC: 0T9B7ZZ Drainage of Bladder, Via Natural or Artificial Opening (ICD-10-PCS; principal; 2016-12-13)
PROC: B246ZZZ Ultrasonography of Right and Left Heart (ICD-10-PCS; 2016-12-14)
DX: G54.4 Lumbosacral root disorders, not elsewhere classified (principal); N30.00 Acute cystitis without hematuria; M54.31 Sciatica, right side; I48.91 Unspecified atrial fibrillation; I10 Essential (primary) hypertension; E78.2 Mixed hyperlipidemia; Z79.82 Long term (current) use of aspirin

== ENCOUNTER 2017-01-12 19:25 | Observation (INO) | payer MEDICARE ==
[2017-01-12 19:50] LABS: Hematocrit 32.7 % (37.0-47.0); Mean Corpuscular Hemoglobin 27.6 pg (27-31); Mean Corpuscular Hgb Conc 33.6 g/dl (32-36); Mean Platelet Volume 9.8 fl (6.0-9.5); Neutrophil # 4.6 K/mm3 (1.3-6.0); Neutrophil % 62.1 % (42-75.0); Platelet Count 200 K/mm3 (150-450); Red Blood Count 3.99 M/mm3 (4.2-5.4); Red Cell Distribution Width 15.3 % (11.5-14.0); White Blood Count 7.4 K/mm3 (4.0-10.5)
[2017-01-12] MEDS ORDERED: ASPIRIN 81 MG TAB.CHEW PO ONE (19:59)
[2017-01-12] MEDS ORDERED: ASPIRIN 81 MG TAB.CHEW ONE (19:59)
[2017-01-12 20:02] LABS: Prothrombin Time (Patient) 11.3 Seconds (9.4-11.4)
--- NOTE | 2017-01-12 20:03 | ERNOTE ---
<EarlChepeJohanne - Last Filed: 01/12/17 20:57> Chest Pain/Cardiac HPI Date of Service: 01/12/17 Chief Complaint: Chest Pain Time Seen by Provider: 01/12/17 20:03 Source: patient, other - [facility] Exam Limitations: clinical condition, physical impairment - patient is a [facility] resident and has increased chest pain started at 1810 , she is feeling a bit better now , other - here via EMS Immunizations: IMMUNIZATION HX Immunizations Up to Date Yes History of Influenza Vaccine Yes Hx Pneumococcal Vaccination Yes Allergies/Adverse Reactions: Allergies penicillin G Allergy (Intermediate, Verified 01/12/17 19:38) Hives Home Medications: HOME MEDICATIONS Albuterol Sulfate [Proventil Hfa] 6.7 gm IH QID 12/13/16 [Last Taken 12/12/16] Amlodipine Besylate 10 mg PO DAILY 12/13/16 [Last Taken 12/13/16] Aspirin/Dipyridamole [Aggrenox] 1 cap PO BID 12/13/16 [Last Taken 12/13/16] Atorvastatin Calcium [Lipitor] 10 mg PO DAILY 12/13/16 [Last Taken 12/13/16] Metoprolol Succinate [Toprol Xl] 50 mg PO DAILY 12/13/16 [Last Taken 12/13/16] Potassium Chloride [Klor-Con 10] 10 meq PO TID 12/13/16 [Last Taken 12/13/16] Quinapril HCl [Accupril] 10 mg PO DAILY 12/13/16 [Last Taken 12/13/16] glipiZIDE [Glipizide] 5 mg PO DAILY 12/13/16 [Last Taken 12/13/16] traZODone HCL [Trazodone HCl] 50 mg PO HS 12/13/16 [Last Taken 12/12/16] Pain Score #1 Pain Score: 6 Narrative: felt like had a heaviness of chest at 1815 here via EMS Date (Duration): 01/12/17 Time (Timing): 18:10 Timing: constant Severity/Quality: severe Location: substernal Chest Pain Radiation: no radiation Activities at Onset: none Modifying Factors - Worsens: Present: other - asa in ED, EMS had oxygen Nitro Today/Relief: no nitro taken today Aspirin Treatment Today: no aspirin today, provided by ED Associated Symptoms: Present: shortness of breath Prior Chest Pain/Cardiac Workup: Reports: no prior cardiac workup, other - history of atrial fibrillation . Denies: heart attack, cardiac cath, echocardiogram Prior Treatment: Reports: treated by physician - for [facility] surgery in [facility] rec[facility] , denies fevers chills, hand antiembolic lower ext Review of Systems - Review of Systems Constitutional: Present: no symptoms reported EYE: Present: no symptoms reported ENT: Present: no symptoms reported Respiratory: Present: shortness of breath, other - hx of asthma Cardiology: Present: See HPI, chest pain Gastrointestinal/Abdominal: Present: no symptoms reported Genitourinary: Present: no symptoms reported Musculoskeletal: Present: back pain, other - recent surgery for disc and myelopathy Neurological: Present: no symptoms reported Endocrine: Present: no symptoms reported Hematologic/Lymphatic: Present: no symptoms reported Psych: Present: anxiety All Other Systems: All systems neg except as marked - Narrative Narrative: reviewed pmhx, pshx, soc hx, medications, allergies, [facility] record, - Patient's Past Medical History Patient History - Medical: Diabetes Type 2, Hypothyroidism, Obesity, Other Patient History - Cardiac/Respiratory: Asthma, CVA/Stroke, Hypertension Patient History - Cancer: No Hx of Cancer Patient History - Surgical Procedures: Cholecystectomy, Hysterectomy, Total Knee Replacement, T & A Patient History - Other: None LMP (females 10-50): Menopausal - Family History Mother Family History - Medical: , Diabetes Type 2 Father Family History - Medical: Family History - Cardiac/Respiratory: COPD - Social History Living Situations: home Abuse History: No History of abuse Psych History: No pertinent hx Alcohol Use: none Drug Use: none - Immunizations Immunizations Up to Date: Yes Hx Pneumococcal Vaccination: Yes History of Influenza Vaccine: Yes Physical Exam - Physical Exam General Appearance: Present: wd/wn, alert, no apparent distress, anxious Eye Exam: Normal inspection: bilateral, PERRL: bilateral, EOMI: bilateral Ears, Nose, Throat: Present: normal ENT inspection Neck: Present: normal inspection, nontender Respiratory: Present: no respiratory distress, normal breath sounds Cardiovascular/Chest: Present: regular rate, rhythm, no murmur, normal peripheral pulses Gastrointestinal/Abdominal: Present: normal bowel sounds, nontender Rectal Exam: Present: deferred Back Exam: Present: normal inspection, normal range of motion, no CVA tenderness Extremity Exam: Present: normal inspection, non-tender, normal range of motion. Absent: pedal edema Neurological Exam: Present: alert, oriented, normal mood/affect, no motor/ sensory deficits Skin Exam: Present: normal color, warm/dry Lymphatic Exam: Present: no adenopathy Pelvic Exam: Present: deferred ED Progress - Results and Orders Patient's Lab Results:: I have reviewed the patient's lab results. Results and Orders: Laboratory Tests 01/12/17 01/12/17 01/12/17 19:31 19:45 19:45 WBC 7.4 RBC 3.99 L Hgb 11.0 L Hct 32.7 L MCV 82.0 RDW 15.3 H Plt Count 200 MPV 9.8 H Immature Gran % (Auto) 0.30 Immature Gran # (Auto) 0.02 Neutrophils % 62.1 Lymphocytes % 22.4 Monocytes % 9.0 Eosinophils % 5.7 H Basophils % 0.5 Nucleated RBC % 0.0 Neutrophils # 4.6 Lymphocytes # 1.7 Monocytes # 0.7 Eosinophils # 0.4 Absolute Basophils 0.0 PT 11.3 INR (Anticoag Therapy) 1.09 PTT ([place]) 25.4 Sodium 143 H Plasma Sodium 144 H Potassium 4.3 Chloride 107 H Carbon Dioxide 28.4 Anion Gap 11.9 BUN 16 Creatinine 0.96 Est GFR (Non-Af Amer) 71 BUN/Creatinine Ratio 16.7 Random Glucose 193 H Calcium 8.9 Calcium Adj for Albumin 9.6 Total Bilirubin 0.4 AST 14 ALT 13 L Alkaline Phosphatase 112 Troponin I Less than 0.017 Total Protein 6.7 - Vital Signs Patient's Vital Signs:: I have reviewed the patient's vital signs. Vital Signs: Vital Signs 01/12/17 01/12/17 19:32 19:39 Pulse Rate 104 H Respiratory 18 14 Rate O2 Sat by Pulse 96 95 Oximetry - EKG EKG: atrial fibrillation EKG read: Reviewed by me EKG Comments: ekg done at 1933 atrial fibrillation with rvr right vent hypertrophy, lateral ischemia may be rate related, prior ekg had atrial fibrillation with similar ekg changes. - X-Ray X-Ray #1 X-Ray: chest - single view. Interpretation: Interp. by me - awaiting final radiology reading. , Reviewed by me X-ray Comments: no acute infiltrate - Progress/Reassessment Chief Complaint: Chest Pain Progress:: Improved - pain down to 3/10 - Transfer of Care Physician Sign Out: Johanne Elliott Receiving Physician: Ernesto Epps - pending repeat troponin and xray reading Pending Results: Labs - second set of troponin , X-ray results Plan - Plan Plan: patient will be given cardizem to lower hr and await troponin Departure - Departure Clinical Impression: Atrial fibrillation with RVR, Chest pain <Ernesto Epps - Last Filed: 01/13/17 02:07> Chest Pain/Cardiac HPI Immunizations: IMMUNIZATION HX Immunizations Up to Date Yes History of Influenza Vaccine Yes Hx Pneumococcal Vaccination Yes ED Progress - Vital Signs Vital Signs: Vital Signs 01/12/17 01/12/17 01/12/17 19:32 19:39 20:02 Temperature 37.0 C Pulse Rate 104 H 114 H Respiratory 18 14 21 H Rate Blood Pressure 128/91 O2 Sat by Pulse 96 95 94 Oximetry 01/12/17 01/12/17 01/12/17 20:36 20:50 21:04 Temperature Pulse Rate 111 H 98 90 Respiratory 19 22 H Rate Blood Pressure 130/69 139/71 140/89 O2 Sat by Pulse 94 94 Oximetry 01/12/17 01/12/17 21:19 21:30 Temperature 36.9 C Pulse Rate 86 81 Respiratory 13 16 Rate Blood Pressure 125/80 131/72 O2 Sat by Pulse 95 97 Oximetry - Progress/Reassessment Progress Note-Subjective: 01/13/17 02:05 Dr. Elliott finished patient care to admission and did not actually hand off the patient. I did not see the patient.
[2017-01-12 20:07] LABS: INR 1.09 INR (0.90-1.10); Partial Thrombolplastin Time 25.4 Seconds (24-32)
--- OUTSIDE RECORDS SUMMARY | 2017-01-12 20:09 | XMS REPORT | Continuity of Care Document ---
:1930 Author Organization [facility] ([facility]) Address [place] [address] Phone [phone] Care Team Providers Name Role Phone Eric Steward Primary Care Provider [phone] Source Comments This disclosure is being made pursuant to the Care Everywhere program, applicable federal and state laws, and may not contain all informaitonavailable regarding this patient.[facility] ([facility]) Active Allergies and Adverse Reactions Allergen Noted Date Severity Reactions Comments Penicillins Angioedema Current Medications Prescription Sig. Disp. Refills Start End Date Status Date albuterol 90 Use 2 Puffs by Active mcg/Actuation inhalation every 6 inhaler hours as needed. atorvastatin 10 mg Take 10 mg by Active tablet mouth every evening. potassium chloride Take 10 mEq by Active 10 mEq tablet mouth 2 times daily. quinapril 10 mg Take 10 mg by Active tablet mouth every evening. traZODone 50 mg Take 50 mg by Active tablet mouth at bedtime. metoPROLol Take 100 mg by Active succinate 100 mg mouth daily. XL tablet docusate 100 mg Take 1 capsule 60 capsule 1 Active capsule (100 mg total) by 7 mouth 2 times daily. sennosides 8.6 mg Take 1 tablet (8.6 60 tablet 1 Active tablet mg total) by mouth 7 2 times daily. enoxaparin 40 Inject 40 mg 14 Syringe 0 Active mg/0.4 mL subcutaneously 7 injection syringe daily. aspirin 81 mg Take 1 tablet (81 45 tablet 0 Active chewable tablet mg total) by mouth 7 daily. risperiDONE 0.25 Take 0.25 mg by Active mg tablet mouth at bedtime. aspirin-dipyridamo Take 1 capsule by 12/21/19 Discontinued le (AGGRENOX) mouth 2 times 17 25-200 mg per daily. capsule amLODIPine 10 mg Take 10 mg by 12/21/19 Discontinued tablet mouth daily. 17 glipiZIDE 5 mg XL Take 5 mg by mouth 12/21/19 Discontinued tablet daily. 17 acetaminophen 325 Take 325 mg by 12/18/19 Discontinued mg tablet mouth every 6 17 hours as needed. oxyCODONE-acetamin Take 1-2 tablets 80 tablet 0 12/30/19 Discontinued ophen 5-325 mg per by mouth every 4 7 17 tablet hours as needed for Pain. Do NOT exceed 4000 mg of acetaminophen per 24 hours. Active Problems Problem Noted Date DMII (diabetes mellitus, type 2) 12/17/2016 Hyperlipidemia 12/17/2016 History of stroke 12/17/2016 HTN (hypertension) 12/17/2016 Spinal stenosis, lumbar region, with neurogenic claudication 12/17/2016 UTI (urinary tract infection) 12/17/2016 Overview: Present on admission, treated with Cipro Acute blood loss anemia 12/17/2016 Overview: Monitored H/H, no treatments needed Spinal cord compression 12/14/2016 Most Recent Encounters Date Type Specialty Providers Description 01/11/2017 Telephone Cait Darling Chief Comp: Appointment Request 01/09/2017 Orders/Notes Orthopaedic Dahiana Catherine MD 01/09/2017 Telephone Chief Matthew Comp: Advice Dahiana Archer MD Only 12/30/2016 Telephone Cait Darling 12/29/2016 Office Visit Orthopaedic Dex Keita, Dx: Spinal MD stenosis, lumbar region, with neurogenic claudication (Primary Dx) 12/16/2016 Hospital Encounter Neurology Lizandro Ayers H, Dx: Spinal cord compression Makenzie Johnson MD 12/16/2016 Hospital Encounter Heart and Vascular Makenzie Johnson MD Chief Comp: Patient Magali Guardado Reported Reason For S, DO Visit 12/16/2016 Surgery General Surgery Dex Keita, FUSION SPINE POSTERIOR THORACO/LUMBAR (PLIF OR TLIF) W STEALTH 12/15/2016 Anesthesia Event General Surgery Bud Tucker MD 12/14/2016 - Hospital Encounter General Care Makenzie Johnson MD Dx: Spinal cord 12/21/2016 Inpatient - Adult rex Roldan MD (Primary Dx) Dex Keita MD Social History Tobacco Use Types Packs/Day Years Used Date Former Smoker Cigarettes Quit: 12/14/1966 Tobacco Cessation:Counseling Given: No Comments: Alcohol Use Drinks/Week oz/Week Comments No 0 Standard drinks or equivalent 0.0 Last Filed Vital Signs Vital Sign Reading Time Taken Blood Pressure 108/63 12/21/2016 6:06 AM CDT Pulse 90 12/21/2016 6:06 AM CDT Temperature 36.8 C (98.2 F) 12/21/2016 4:40 AM CDT Respiratory Rate 18 12/21/2016 4:40 AM CDT Height 1.549 m (5' 1") 12/16/2016 6:58 PM CDT Weight 91.6 kg (201 lb 15.1 oz) 12/16/2016 6:58 PM CDT Body Mass Index 38.18 12/16/2016 6:58 PM CDT Oxygen Saturation 96% 12/21/2016 4:40 AM CDT Plan of Care Date Type Specialty Providers Description 01/17/2017 Appointment Orthopaedic Dex Keita MD Chief Comp: Patient Reported Reason For Visit 01/24/2017 Appointment Orthopaedic Dex Keita MD Chief Comp: Patient Reported Reason For Visit Health Maintenance Due Date Last Done Comments Hepatitis B Vaccine (1 of 3 - Primary Series) 1930 Tdap Vaccine 1941 DIABETIC: Microalbumin 1948 Td Vaccine 1948 Zoster Vaccine 1990 Pneumococcal Vaccine (1 of 2 - PCV13) 1995 DIABETIC: Cholesterol 1999 1998 Diabetic: Hdl 1999 1998 Diabetic: Ldl 1999 1998 DIABETIC: Triglycerides 1999 1998 DIABETIC: Foot Exam 12/17/2016 DIABETIC: Retinal Eye Exam 12/17/2016 Influenza Vaccine: Seasonal (Season Ended) 2017 DIABETIC: Hemoglobin A1C 06/16/2017 12/14/2016 [facility] Annual Coding Diabetes without Complication 08/15/2017 12/17/2016 Procedures from Last 3 Months Procedure Name Priority Date/Time Associated Diagnosis Comments ABSTRACTED BY Routine 12/16/2016 4:22 Spinal cord Results for this BILLING STAFF PM CDT compression procedure are in Pre-op evaluation the results section. FUSION SPINE 12/16/2016 11:05 Spinal cord POSTERIOR AM CDT compression THORACO/LUMBAR (PLIF OR TLIF) W MELISSA Case Notes O-Arm Results from Last 3 Months BLOOD GLUCOSE, BEDSIDE (12/21/2016 6:51 AM)Only the most recent of26 resultswithin the time period is included. Component Value Range Glucose, Accu-Chek 123(H) 65-99 mg/dL Specimen Blood, capillary COMPREHENSIVE METABOLIC PANEL (CMP) (12/19/2016 12:16 PM) Component Value Range Sodium 134(L) 135-145 mEq/L Potassium 4.5 3.5-5.0 mEq/L Chloride 101 95-107 mEq/L CO2 22 22-29 mEq/L BUN 19 10-20 mg/dL Creatinine 0.8Comment: 0.5-1.0 mg/dL Creatinine switched to enzymatic method on 12/22/2010.GFR equation switched to IDMS-traceable MDRD equation on 12/22/2010. Calculated GFR values are not valid in clinical settings where serum creatinine is changing. Glucose 221(H)Comment: 65-99 mg/dL The Expert Committee on the Diagnosis and Classification of Diabetes has defined impaired fasting glucose as greater than or equal to 100 mg/dL but less than 126 mg/dL.(Diabetes Care 28 (Suppl 1)S41,2005) Calcium 7.7(L) 8.5-10.5 mg/dL Total Protein 5.4(L) 6.0-8.0 g/dL Albumin 2.7(L) 3.4-4.8 g/dL AST 34(H)Comment: 0-32 U/L Adult reference ranges updated on 07/10/13 at 830am ALP 49 35-104 U/L Bilirubin Total 0.5 <=1.2 mg/dL ALT 17Comment: 0-33 U/L The upper limit of normal for alanine aminotransferase (ALT) reference ranges for adults is controversial with some authorities recommending limit as low as 30 U/L for males and 19 U/L for females. Th ere is increased incidence of subclinical liver disease (e.g., early steatohepatitis) in patients with ALT values in the range of 31-41 U/L for males and 20-33 U/L for females. ALT values should alway s be interpreted in conjunction with clinical history, physical examination findings, and, if applicable, data from other diagnostic tests. Anion Gap 11 <17 mEq/L Calculated GFR 82 >60 mL/min/1.73 m2 Specimen Blood CBC (COMPLETE BLOOD COUNT) (12/19/2016 12:16 PM)Only the most recent of6 resultswithin the time period is included. Component Value Range WBC Count 16.4(H) 3.7-10.5 K/MM3 RBC Count 3.15(L) 4.00-5.20 M/MM3 Hemoglobin 9.1(L) 11.9-15.5 g/dL Hematocrit 26(L) 35-47 % MCV (Mean Corpuscular Volume) 81(L) 82-99 FL MCH (Mean Corpuscular Hemoglobin) 29 25-35 PG MCHC (Mean Corpuscular Hemoglobin Concentration) 36 32-36 % Platelet Count 143(L) 150-400 K/MM3 MPV (Mean Platelet Volume) 11.2 9.4-12.3 FL RBC Dist Width-STD 44.0 36.4-46.3 FL RBC Distrib Width 15.1(H) 9.0-14.5 % Nucleated RBC 0 /100 WBC Specimen Whole Blood PT/INR (PROTHROMBIN TIME/INR) VENOUS (12/19/2016 12:16 PM)Only the most recent of6 resultswithin the time period is included. Component Value Range PT (Prothrombin Time) 11 9-12 secs INR 1.1 <4.0 Specimen Blood HEMATOCRIT (12/18/2016 10:27 AM)Only the most recent of2 resultswithin the time period is included. Component Value Range Hematocrit 28(L) 35-47 % Specimen Whole Blood HEMOGLOBIN (12/18/2016 10:27 AM)Only the most recent of2 resultswithin the time period is included. Component Value Range Hemoglobin 9.7(L) 11.9-15.5 g/dL Specimen Whole Blood CHEM 7 PANEL (12/18/2016 10:27 AM)Only the most recent of2 resultswithin the time period is included. Component Value Range Sodium 141 135-145 mEq/L Chloride 105 95-107 mEq/L Potassium 4.3 3.5-5.0 mEq/L CO2 24 22-29 mEq/L BUN 18 10-20 mg/dL Creatinine 0.9Comment: 0.5-1.0 mg/dL Creatinine switched to enzymatic method on 12/22/2010.GFR equation switched to IDMS-traceable MDRD equation on 12/22/2010. Calculated GFR values are not valid in clinical settings where serum creatinine is changing. Glucose 203(H)Comment: 65-99 mg/dL The Expert Committee on the Diagnosis and Classification of Diabetes has defined impaired fasting glucose as greater than or equal to 100 mg/dL but less than 126 mg/dL.(Diabetes Care 28 (Suppl 1)S41,2005) Anion Gap 12 <17 mEq/L Calculated GFR 72 >60 mL/min/1.73 m2 Specimen Blood BASIC METABOLIC PANEL W/ CALCIUM (CHEM 8) (12/17/2016 8:34 AM)Only the most recent of2 resultswithin the time period is included. Component Value Range Sodium 139 135-145 mEq/L Potassium 4.2 3.5-5.0 mEq/L Chloride 105 95-107 mEq/L CO2 24 22-29 mEq/L BUN 19 10-20 mg/dL Creatinine 0.8Comment: 0.5-1.0 mg/dL Creatinine switched to enzymatic method on 12/22/2010.GFR equation switched to IDMS-traceable MDRD equation on 12/22/2010. Calculated GFR values are not valid in clinical settings where serum creatinine is changing. Glucose 157(H)Comment: 65-99 mg/dL The Expert Committee on the Diagnosis and Classification of Diabetes has defined impaired fasting glucose as greater than or equal to 100 mg/dL but less than 126 mg/dL.(Diabetes Care 28 (Suppl 1)S41,2005) Calcium 8.1(L) 8.5-10.5 mg/dL Anion Gap 10 <17 mEq/L Calculated GFR 82 >60 mL/min/1.73 m2 Specimen Blood TISSUE BANK: [facility] BONE BPT-[id number] (12/17/2016)TISSUE BANK: [facility] B[facility] CHIPS- GROUND BONE-[place] (12/17/2016)EEG - OR MONITORING - PEDICLE SCREW SURGERY (11/2016 5:16 PM) Lizandro Armstrong MD 12/16/20165:16 PM Department of Neurology Division of Neurophysiology EEG - OR EP MONITORING (SPINAL CORD MONITORING) Intra-operative Monitoring Identifying Information Patient Name: Maral Age and sex: 86 y.o. y.o. female Requesting Provider: Dex Keita MD Reason for the request: Request neurophysiologic monitoring to monitor spinal root function to check pedicle screw placement. Procedure Date of Test: 12/16/2016 Spinal level for Monitoring: L2-L4 Data Interpretation: Neurophysiologic monitoring using pedicle screw stimulation was done to assess for early changes in function to protect the nervous system during the surgical procedure. PEDICLE SCREW MONITOR DATA Muscles assessed: Muscle Level Left Right Adductor Longus L2-L4 ? ? Vastus Lateralis L3-L4 ? ? Extensor Hallucis Longus L5-S1 ? ? Gastrocnemius L5-S1 ? ? Pedicle screw was tested by pedicle screw stimulation at Left (L2, L3, L4) and Right (L2, L3, L4). No CMAP was elicited at stimulus intensity of 30 mA . Impression: Pedicle screw testing passed at all levels examined. Staff Involved Staff Only IOM Physician: Lizandro Ayers MD Neurology Staff Electronically signed Technologist Form Surgeon: Neela Anesthesiologist: Uli Technologist: Alondra Surgical Procedure: PSFSpine Level: L2-4 Room number:[id number] Machine:Zhenai Technologist time:Set up: 1038 Start MonitorinEnd Monitorin Tech on stand by for 150 minutes Pedicle Screw Monitoring Procedure:ION technologist prepares and sets up the equipment for the procedure. The recording needle electrodes were placed in the appropriate bilateral muscles to be examined. Monitoring starts when the surgeon is ready to stimulate pedicle screw or nerve root. The data is sent to neurophysiologist on-line. Nerve Roots Tested: LEFT RIGHT Level Current ResultLevel Current Result Any Any L2 L2 L3 L3 L4 L4 L5 L5 S1 S1 Pedicle Screws Tested: LEFT RIGHT Level Current ResultLevel Current Result Any Any L2 98NwnsC8 30Pass L3 91WdryA2 30Pass L4 65ShzbG8 30Pass L5 L5 S1 S1 Comments:Muscles recorded were adductor longus, vastus lateralis, gastrocnemius, and extensor hallucis longus Anesthesia: Anesthesia was maintained by (Sevoflurane) at concentration of 1.8 in range. MAC level was 0.8. Other anesthetic used was remifentanil. [place] pulled by Alondra Anthony SPINE AP& LATERAL (12/16/2016 4:46 PM) Addenda Addendum by Lawrence Coffey DO on 12/16/2016 4:54 PM Addendum: The first line of the report should read as follows: "interval placement of posterior fusion hardware from L2 to L4 without acute hardware complication." Remainder of report remains the same. Impressions impression: Redemonstrated posterior fusion hardware L2-L4, without acute hardware complication. Degenerative scoliotic curvature again seen. Surgical drain noted. Narrative Procedures: L SPINE AP & LATERAL Indication: Evaluate postop. Technique: AP and lateral views of the lumbar spine Comparison: December 16, 2016 Findings/ Procedure Note Pedro, Incoming Imaging Results - Betty December 16, 2016 4:53 PM CDT Procedures: L SPINE AP & LATERAL Indication: Evaluate postop. Technique: AP and lateral views of the lumbar spine Comparison: December 16, 2016 Findings/ IMPRESSION impression: Redemonstrated posterior fusion hardware L2-L4, without acute hardware complication. Degenerative scoliotic curvature again seen. Surgical drain noted. O-ARM CT LUMBAR SPINE W/O CONTRAST (12/16/2016 4:33 PM) Impressions Impression: Intraoperative lumbar spine CT performed for surgical planning at the discretion the operating team. Narrative Procedure: O-ARM CT LUMBAR SPINE W/O CONTRAST Clinical Indication: Pre-op eval, spinal cord compression Comparison: Radiographs dated 12/13/2016, MRI dated 12/14/2016. Technique: Intraoperative limited CT of the lumbar spine was performed without contrast at the discretion of the operating team. Findings: AP fluoroscopic image shows a clamp at the spinous process of L4. There are 5 lumbar type vertebral bodies. Minimal anterolisthesis of L3 on L4. There is a clamp demonstrated at the L4 spinous process. There postsurgical changes of decompression from L2 to L4, including removal of the facets. Expected postsurgical gas is demonstrated within the posterior subcutaneous soft tissues. Atherosclerotic vascular calcifications. Evaluation of fine detail is limited given intraoperative technique. Procedure Note Pedro, Incoming Imaging Results - Betty December 16, 2016 5:03 PM CDT Procedure: O-ARM CT LUMBAR SPINE W/O CONTRAST Clinical Indication: Pre-op eval, spinal cord compression Comparison: Radiographs dated 12/13/2016, MRI dated 12/14/2016. Technique: Intraoperative limited CT of the lumbar spine was performed without contrast at the discretion of the operating team. Findings: AP fluoroscopic image shows a clamp at the spinous process of L4. There are 5 lumbar type vertebral bodies. Minimal anterolisthesis of L3 on L4. There is a clamp demonstrated at the L4 spinous process. There postsurgical changes of decompression from L2 to L4, including removal of the facets. Expected postsurgical gas is demonstrated within the posterior subcutaneous soft tissues. Atherosclerotic vascular calcifications. Evaluation of fine detail is limited given intraoperative technique. IMPRESSION Impression: Intraoperative lumbar spine CT performed for surgical planning at the discretion the operating team. L SPINE LATERAL (12/16/2016 4:32 PM) Impressions Findings / Impression: There are 5 lumbar type vertebrae. Alignment is anatomic. Metallic probe introduced posteriorly terminates at the L2-3 intervertebral level. Narrative Procedure: L SPINE LATERAL Clinical Indication: Evaluate level Comparison: None available Procedure Note Pedro, Incoming Imaging Results - Betty December 16, 2016 4:54 PM CDT Procedure: L SPINE LATERAL Clinical Indication: Evaluate level Comparison: None available IMPRESSION Findings / Impression: There are 5 lumbar type vertebrae. Alignment is anatomic. Metallic probe introduced posteriorly terminates at the L2-3 intervertebral level. ORT OR CASE (12/16/2016 4:22 PM) Narrative Dex Keita MD 12/16/20164:22 PM OR CASE: FUSION SPINEPOSTERIOR THORACO/LUMBAR (PLIF OR TLIF) W STEALTH Post-Op Procedure Note Operation/Procedure: Procedure(s) (LRB): FUSION SPINEPOSTERIOR THORACO/LUMBAR (PLIF OR TLIF) W STEALTH (N/A) General Information: Date: 12/16/16 Time: 1105 Location: MAIN OR OR Room: MAIN OR Service: Orthopaedics Log ID: [id number] Surgeon: Surgeon(s) and Role: * Dex Keita MD - Primary * Luis Felipe Vallejo MD Staff Information: Circulating Nurse: Rama Osorio RN; Shahida Hua RN; Radha Renee RN [employer] Worker- Scrub: Sheri Sanchez; Genoveva Kearns Anesthesia: General Findings: No unexpected findings, see below. Blood Loss: 600 ml Implants: Implant Name Type Inv. Item Serial No. Car Blocker Lot No. LRB No. Used Action CANCELLOUS CHIPS 4-10MM 15CC - [id number] Tissue CANCELLOUS CHIPS 4-10MM 15CC [id number] [employer] [id number] N/A 2 Implanted KEIKO ORTHOBLEND SMALL DEFECT 5CC - [id number] Tissue KEIKO ORTHOBLEND SMALL DEFECT 5CC [id number] OSTEOTECH_INCN/A 2 Implanted KEIKO ORTHOBLEND SMALL DEFECT 10CC - [id number] Tissue KEIKO ORTHOBLEND SMALL DEFECT 10CC [id number] OSTEOTECH_INCN/A 2 Implanted SCREW SOLERA 6.0 SYSTEM BREAK OFF SET RADHA - [id number] Screw SCREW SOLERA 6.0 SYSTEM BREAK OFF SET RODMEDTRONIC_SOFAMOR_DANEKN/A 5 Implanted SCREW SOLERA 6.0 SYSTEM 6.5 X 45MM - [id number] Screw SCREW SOLERA 6.0 SYSTEM 6.5 X 45MMMEDTRONIC_SOFAMOR_DANEKN/A 5 Implanted RADHA SOLERA 6.0 SYSTEM CCM NS CURVED 5.5 X 70MM - [id number] SOLERA 6.0 SYSTEM CCM NS CURVED 5.5 X 70MM MEDTRONIC_SOFAMOR_DANEKN/A 1 Implanted RADHA SOLERA 6.0 SYSTEM CCM NS CURVED 5.5 X 60MM - [id number] RADHA SOLERA 6.0 SYSTEM CCM NS CURVED 5.5 X 60MM MEDTRONIC_SOFAMOR_DANEK N/A 1 Implanted Specimens: * No specimens in log * Complications: None; patient tolerated the procedure well. Condition: PACU - hemodynamically stable. Return to the OR planned in the next 30 days? No Readmission planned in the next 30 days? No BMI=42.13 kg/(m^2) (as of 1998) Operative Report Completion Pre-op Diagnosis: * Spinal cord compression [G95.20] * Pre-op evaluation [Z01.818] Post-op Diagnosis: Spinal stenosis L2 to L4, degenerative scoliosis Procedure was:Lumbar decompression from the L2 nerve roots to the L4 nerve roots. Harvesting of local bone including the spinous processes, lamina, and facets for purposes of bone grafting. Placement of pedicle screw fixation from L2-L4. Posterolateral fusion from L2-L4. Use of morselized allograft for the purposes of fusion. Hardware placed under surgical navigation. Indications/Procedure Details: This is Dr. Keita dictating on the above-noted patient. This is an otherwise reasonably healthy he 6-year-old woman who does have a history of back problems. Over 2 years ago she did have an MRI scan which revealed rather severe stenosis at L3-L4. She also has stenosis at L2L3 with some degenerative scoliosis. She recently presented to the hospital with increasing pain and weakness in both legs. MRI of course demonstrated occlusive spinal stenosis at L3-L4 and severe stenosis at L2-L3. It was felt that surgical decompression and fusion from L2-L4 would be the appropriate course of treatment. The nature of the procedure was discussed with the patient. Potential risks, benefits, and complications were discussed. Risks would include but are not limited to such things as pain, bleeding, infection, as well as the possibilities of nerve root injury, incidental durotomy, and failure of the operation to alleviate her symptoms. No guarantee was given on the outcome. Potential anesthetic-related complications were discussed including the possibility of mortality. The patient understood the nature of the surgical procedure and agreed to same. She was brought to the operating table a procedure. Operative procedure: Patient brought to the operating room placed supine on the operating table for satisfactory induction of general endotracheal anesthesia. She was given 2 g of Ancef IV the back. A Roblero catheter was are in place. Appropriate monitoring leads for intraoperative pedicle screw monitoring were placed.The patient was then carefully placed prone onto the Chan table and well padded. Time out was taken to verify patient procedure. She was then prepped and draped in usual sterile manner. The skin overlying the lumbar spine from L2 down to L4 was infiltrated with one 200,000 epinephrine with 0.25% Marcaine. Midline skin incision was made exposing the lumbodorsal fascia. Hemostasis obtained with electrocautery. The fascia was split and subperiosteal dissection was then used to expose the spine going to the tips of the transverse processes from L2 down to L4. X-ray was taken to confirm levels. The canal was opened centrally using high-speed drill and Kerrison punches taking down the lamina and facets from L2 down to L4. Decompression was carried out from the L2 nerve roots down to the L4 nerve roots. There was very severe stenosis at both levels especially at L3-L4. I did explore the disc space at L3-L4 since it appeared on MRI that there was some herniation. However recently found some central bulging of the disc and to not remove that at the time of surgery. The canal was nicely decompressed going to the medial border of the pedicles after taking down the facet joints. Bleeding vessels cauterized with bipolar. The bone that was removed from the spine was debrided of soft tissue, morselized, and saved for later use as local autograft. The reference frame for the O.-arm was then attached to the L4 spinous process or what remained of it. The patient was secondarily draped. The O.-arm was brought into the field for image acquisition. Once complete the O.-arm was removed and the operation resumed under surgical navigation. Pedicles were probed and sounded from L2 down to L4 on the left than on the right. 6.5 mm screws x6 were placed from the Medtronic Solera set. Intraoperative EMG was used to verify screw placement along with surgical navigation. Once the hardware was in place the transverse processes were decorticated bilaterally. Equal amounts of keiko, morselized allograft, and local autograft was packed over the decorticated transverse processes bilaterally. This was from L2-L4. Rods were then placed bilaterally and rotated into lordosis. Set screws were placed, tightened, and torqued off for final tightening. The wound was irrigated a final time and I should note was irrigated multiple times throughout the case. There were still a fair amount of bleeding. Mostly oozing from soft tissue. We did sprinkle vancomycin powder into the wound above and below the fascia. One medium Hemovac drain was then placed below the fascia. Retractors removed and fascia was then closed with #1 Vicryl stitch. Subcutaneous was then closed in layers. Steri-Strips and sterile dressings applied. Total blood loss was about 600 cc. There were no specimens. One drain was placed. All counts were correct. Postoperatively the patient was taken to the recovery room hemodynamically stable at time of transport from the operating room. Disposition: Admitted Attending Attestation: Dex Keita MD was present for burns portions of the procedure defined as, and was immediately available for the remainder of the procedure. The burns portions are defined as:I was scrubbed in and present for the entire case.. Dex Keita MD FIBRINOGEN (12/16/2016 3:16 PM) Component Value Range Fibrinogen 244 180-400 mg/dL Specimen Blood PTT (PARTIAL THROMBOPLASTIN TIME) (12/16/2016 3:16 PM)Only the most recent of2 resultswithin the time period is included. Component Value Range PTT 25 22-31 secs Specimen Blood GLUCOSE ([facility]) (12/16/2016 1:24 PM) Component Value Range Glucose, Whole Blood 125(H) 65-99 mg/dL Specimen Whole Blood CHLORIDE ([facility]) (12/16/2016 1:24 PM) Component Value Range Chloride, Whole Blood 111(H) 95-107 mEq/L Specimen Whole Blood POTASSIUM ([facility]) (12/16/2016 1:24 PM) Component Value Range Potassium, Whole Blood 3.6Comment: 3.5-5.0 mEq/L Sample run on whole blood.Hemolysis is not measured. Specimen Whole Blood SODIUM ([facility]) (12/16/2016 1:24 PM) Component Value Range Sodium, Whole Blood 139 135-145 mEq/L Specimen Whole Blood HEMOGLOBIN& CALCULATED HEMATOCRIT - ([facility]) (12/16/2016 1: 24 PM) Component Value Range Hemoglobin - CCL 11.6(L) 11.9-15.5 g/dL Hematocrit (Calc) - CCL 36 35-47 % Specimen Whole Blood CALCIUM, IONIZED ([facility]) (12/16/2016 1:24 PM) Component Value Range Ionized Calcium 4.4 3.8-5.2 mg/dL Specimen Whole Blood ARTERIAL BLOOD GAS ([facility]) (12/16/2016 1:24 PM) Component Value Range pH, Arterial 7.42 7.35-7.45 pCO2, Arterial 35 35-45 torr pO2, Arterial 228(H) 80-90 torr Base Excess, Arterial -2 -2-2 mEq/L Bicarbonate, Arterial 22 22-26 mEq/L Total CO2, Arterial 24 24-32 mEq/L Temperature, Arterial 37.0 Degrees C Anion Gap 6 <17 mEq/L Specimen Whole Blood TYPE AND SCREEN (BLOOD TYPE(ABORH) AND RBC ANTIBODY SCREEN) (12/16/2016 8:36 AM )Only the most recent of2 resultswithin the time period is included. Component Value Range ABORH O Positive Specimen Expiration Date 2016-12-19 Antibody Screen Negative Specimen Blood ASPARTATE AMINOTRANSFERASE (12/16/2016 8:36 AM)Only the most recent of2 resultswithin the time period is included. Component Value Range AST 20Comment: 0-32 U/L Adult reference ranges updated on 07/10/13 at 830am Specimen Blood EXTERNAL MRI - STORE ONLY (12/15/2016 7:06 AM)EXTERNAL PL FILMS - STORE ONLY ( 12/15/2016 7:06 AM)EXTERNAL MRI-STORE& INTERPRET (12/15/2016 7:06 AM) Impressions Impression: Multilevel degenerative changes, most significantly at L2-L3 and L3-L4, where there is severe narrowing. Recommend further evaluation of the left kidney with ultrasound to confirm a 2.5 cm simple cyst. Narrative Outside MRI was performed at 1200 hours on 12/14/2016 at [facility]. 149 images are provided and interpreted on the in-house PACS. Procedure: MRI exam of the lumbar spine Procedure: EXTERNAL MRI-STORE & INTERPRET Indication: Spinal cord compression. Assess stenosis. Technique: Multisequence, multiplanar MRI of the lumbar spine without IV contrast. Comparison: 05/13/2014 lumbar spine MRI from [facility] Findings: There are 5 lumbar-type vertebrae. There is no evidence of acute fracture or dislocation. There is grade 1 spondylolisthesis at L3-L4. Vertebral body heights are well-maintained. The visualized cord is within normal limits. The conus medullaris terminates at L1-L2. There are multilevel vertebral endplate changes consistent with advanced degenerative disc disease. Is a possible cyst in the left kidney measuring approximately 2.5 cm in maximum diameter. Recommend confirmation with ultrasound for a simple cyst, unless this has been previously documented elsewhere. A level by level analysis is as follows: T12-L1: There is no significant disc disease or stenosis. L1-L2: There is a diffuse disc bulge and bilateral facet arthropathy resulting in moderate central narrowing of the spinal canal as well as moderate narrowing of the bilateral neural foramina. L2-L3: There is a diffuse disc bulge, bilateral facet arthropathy, and ligamentum flavum buckling causing severe stenosis of the spinal canal as well as severe stenosis of the left neural foramen. There is only moderate narrowing of the right neural foramen at this level. L3-L4: There is a diffuse disc bulge, bilateral facet arthropathy, and grade 1 spondylolisthesis causing severe central stenosis of the spinal canal. There is moderate bilateral narrowing of the neural foramina. L4-L5: There is a posterior disc osteophyte complex and bilateral facet arthropathy causing moderate central narrowing of the spinal canal and bilateral neural foramina. L5-S1: There is a diffuse bulge with a superimposed central focal disc protrusion, bilateral facet arthropathy, and posterior osteophytes causing mild central narrowing of the spinal canal and moderate bilateral neural foraminal narrowing. Procedure Note Pedro, Incoming Imaging Results - TueDecember 17, 2016 9:34 AM CDT Outside MRI was performed at 1200 hours on 12/14/2016 at [facility]. 149 images are provided and interpreted on the in-house PACS. Procedure: MRI exam of the lumbar spine Procedure: EXTERNAL MRI-STORE & INTERPRET Indication: Spinal cord compression. Assess stenosis. Technique: Multisequence, multiplanar MRI of the lumbar spine without IV contrast. Comparison: 05/13/2014 lumbar spine MRI from [facility] Findings: There are 5 lumbar-type vertebrae. There is no evidence of acute fracture or dislocation. There is grade 1 spondylolisthesis at L3-L4. Vertebral body heights are well-maintained. The visualized cord is within normal limits. The conus medullaris terminates at L1-L2. There are multilevel vertebral endplate changes consistent with advanced degenerative disc disease. Is a possible cyst in the left kidney measuring approximately 2.5 cm in maximum diameter. Recommend confirmation with ultrasound for a simple cyst, unless this has been previously documented elsewhere. A level by level analysis is as follows: T12-L1: There is no significant disc disease or stenosis. L1-L2: There is a diffuse disc bulge and bilateral facet arthropathy resulting in moderate central narrowing of the spinal canal as well as moderate narrowing of the bilateral neural foramina. L2-L3: There is a diffuse disc bulge, bilateral facet arthropathy, and ligamentum flavum buckling causing severe stenosis of the spinal canal as well as severe stenosis of the left neural foramen. There is only moderate narrowing of the right neural foramen at this level. L3-L4: There is a diffuse disc bulge, bilateral facet arthropathy, and grade 1 spondylolisthesis causing severe central stenosis of the spinal canal. There is moderate bilateral narrowing of the neural foramina. L4-L5: There is a posterior disc osteophyte complex and bilateral facet arthropathy causing moderate central narrowing of the spinal canal and bilateral neural foramina. L5-S1: There is a diffuse bulge with a superimposed central focal disc protrusion, bilateral facet arthropathy, and posterior osteophytes causing mild central narrowing of the spinal canal and moderate bilateral neural foraminal narrowing. IMPRESSION Impression: Multilevel degenerative changes, most significantly at L2-L3 and L3-L4, where there is severe narrowing. Recommend further evaluation of the left kidney with ultrasound to confirm a 2.5 cm simple cyst. GAMMA GLUTAMYLTRANSPEPTIDASE (12/14/2016 11:58 PM) Component Value Range GGT 15 5-36 U/L Specimen Blood POTASSIUM (12/14/2016 11:58 PM) Component Value Range Potassium Hemolyzed(A)Comment: mEq/L For inpatient phlebotomy redraws, please contact pager #[phone] between the hours of 05:00 to 13:00. Specimen Blood ALANINE AMINOTRANSFERASE (12/14/2016 11:58 PM) Component Value Range ALT 18Comment: 0-33 U/L The upper limit of normal for alanine aminotransferase (ALT) reference ranges for adults is controversial with some authorities recommending limit as low as 30 U/L for males and 19 U/L for females. Th ere is increased incidence of subclinical liver disease (e.g., early steatohepatitis) in patients with ALT values in the range of 31-41 U/L for males and 20-33 U/L for females. ALT values should alway s be interpreted in conjunction with clinical history, physical examination findings, and, if applicable, data from other diagnostic tests. Specimen Blood MICROSCOPIC URINALYSIS (12/14/2016 10:27 PM) Component Value Range White Blood Cells, Urine 35(H) 0-5 /HPF Red Blood Cells, Urine 13(H) 0-2 /HPF Bacteria, Urine Many(A) /HPF Squamous Epithelial Cells, Urine 53(H) <=10 /LPF Hyaline Cast, Urine 1 <=10 /LPF Mucous-Urine Rare None, Rare WBC Clumps-Urine Present(A) /HPF Specimen Urine URINALYSIS WITH REFLEX CULTURE (12/14/2016 10:27 PM) Component Value Range Color, Urine Yellow Straw, Pale Yellow, Yellow, Clear, None Clarity, Urine Cloudy(A) Clear pH, Urine 5.0 <9.0 Spec [place], Urine 1.015 1.000-1.030 Glucose, Urine Negative Negative Blood, Urine 2+(A) Negative Ketones, Urine Negative Negative Protein, Urine 1+(A) Negative Urobilinogen, Urine Normal Normal Bilirubin, Urine Negative Negative Leukocyte Esterase, Urine 3+(A) Negative Nitrite, Urine Positive(A) Negative Specimen Urine URINALYSIS WITH REFLEXED CULTURE AND MICROSCOPIC EXAM (12/14/2016 10:27 PM) Specimen Culture - Urine, Midstream clean catch Narrative The following orders were created for panel order URINALYSIS WITH REFLEXED CULTURE AND MICROSCOPIC EXAM. Procedure Abnormality Status --------- ------ URINALYSIS WITH REFLEX C...[[id number]]AbnormalFinal result MICROSCOPIC URINALYSIS[[id number]] Abnormal Final result URINE CULTURE, REFLEXED[[id number]]Abnormal Final result Please view results for these tests on the individual orders. URINE CULTURE, REFLEXED (12/14/2016 10:27 PM) Component Value Range Quantitative Culture >100,000 CFU/mL Escherichia coli(A) Specimen Culture - Urine, Midstream clean catch Narrative Identification performed by MALDI-TOF mass spectrometry (MS).The performance characteristics of MALDI-TOF MS were determined by the [facility].It has not been cleared orApproved by the FDA. The FDA has determined that such clearance or approval is not necessary.This test is for clinical purposes. It should not be regarded as investigational or for research.The laboratory is certified under the Clinical Laboratory Improvement Amendments of 1988 (CLIA) as qualified to perform high complexity clinical laboratory testing. Organism Antibiotic Method Susceptibility Escherichia coli AMPICILLIN >=32: Resistant Escherichia coli AMPICILLIN/SULBACTAM 16: Intermediate Escherichia coli CEFTRIAXONE <=1: Susceptible Escherichia coli CIPROFLOXACIN >=4: Resistant Escherichia coli GENTAMICIN <=1: Susceptible Escherichia coli NITROFURANTOIN <=16: Susceptible Escherichia coli PIPERACILLIN/TAZOBACTAM <=4: Susceptible Escherichia coli TRIMETHOPRIM/SULFA <=1: Susceptible Escherichia coli CEFAZOLIN <=4: Susceptible HEMOGLOBIN A1C (12/14/2016 9:43 PM) Component Value Range Hemoglobin A1c 5.4Comment: 4.8-6.0 % Glycemic Control Guidelines: Non-diabetic <6% Goal <7% Therapeutic Action >8% Estimated Average Glucose 108Comment: mg/dL The estimated average glucose (eAG) calculated from the HbA1c changed on 03/04.See Laboratory Bulletins in the Department of Pathology Laboratory Services Handbook for a full discussion.Not e that the new calculated glucose will now be lower.The A1c result is unchanged. Specimen Whole Blood LIVER PANEL (12/14/2016 9:43 PM) Component Value Range Bilirubin Total 0.8 <=1.2 mg/dL AST Hemolyzed(A)Comment: U/L For inpatient phlebotomy redraws, please contact pager #[phone] between the hours of 05:00 to 13:00. ALT Hemolyzed(A)Comment: U/L For inpatient phlebotomy redraws, please contact pager #[phone] between the hours of 05:00 to 13:00. ALP 55 35-104 U/L GGT Hemolyzed(A)Comment: U/L For inpatient phlebotomy redraws, please contact pager #[phone] between the hours of 05:00 to 13:00. Albumin 3.8 3.4-4.8 g/dL Total Protein 7.4 6.0-8.0 g/dL Specimen Blood ECG - EKG 12 LEAD (12/14/2016 9:09 PM) Component Value Range ECG SEVERITY - ABNORMAL ECG - VENT. RATE 72 bpm RR 833 ms QRSD INTERVAL 94 ms QT INTERVAL 400 ms QTC INTERVAL 438 ms QRS AXIS -34 degrees T WAVE AXIS -39 degrees REPORT ATRIAL FIBRILLATION, V-RATE 53-89 LEFT AXIS DEVIATION CONSIDER ANTEROSEPTAL INFARCT NONSPECIFIC T ABNORMALITIES, DIFFUSE LEADS Interpreting Physician: Ken Brennan MD
[2017-01-12 20:10] LABS: ALT 13 U/L (19-67); AST 14 U/L (0-48); Albumin * 2.7 gm/dl (3.4-5.0); Alkaline Phosphatase * 112 U/L (50-170); Anion Gap 11.9 mmol/L (6.8-13.8); BUN/Creatinine Ratio 16.7 (9.0-21.6); Bilirubin, Total 0.4 mg/dL (0.0-1.1); Blood Urea Nitrogen 16 mg/dL (3-23); Ca. Corrected For Albumin 9.6 mg/dL (8.4-10.2); Calcium * 8.9 mg/dL (7.9-10.9); Carbon Dioxide 28.4 mmol/L (24-32.6); Chloride 107 mmol/L (97-106); Glucose * 193 mg/dL (70-110); Potassium 4.3 mmol/L (3.4-4.6); Sodium 143 mmol/L (132-142); Total Protein 6.7 gm/dL (6.2-8.2); Troponin I Less than 0.017 ng/ml (0.00-0.10)
[2017-01-12] MEDS ORDERED: MORPHINE SULFATE 4 MG/ML SYRG IM ONE (20:11)
[2017-01-12] MEDS ORDERED: MORPHINE SULFATE 4 MG/ML SYRG ONE (20:13)
[2017-01-12] MEDS ORDERED: DILTIAZEM HCL 5 MG/ML VIAL IV ONE ×2 (20:26→20:33)
--- OUTSIDE RECORDS SUMMARY | 2017-01-12 21:25 | XMS REPORT | Continuity of Care Document ---
:1930 Author Organization [facility] ([facility]) [place] [address] Phone [phone] Care Team Providers Name Role Phone Eric Steward Primary Care Provider [phone] Source Comments This disclosure is being made pursuant to the Care Everywhere program, applicable federal and state laws, and may not contain all informaitonavailable regarding this patient.[facility] ([facility]) Active Allergies and Adverse Reactions Allergen Noted [...] STEALTH 12/15/2016 Anesthesia Event General Surgery Bud Tucekr MD 12/14/2016 - Hospital Encounter General Care [...] Ended) 2017 DIABETIC: Hemoglobin A1C 06/16/2017 12/14/2016 [facility] Annual Coding Diabetes without Complication 08/15/2017 [...] >60 mL/min/1.73 m2 Specimen Blood TISSUE BANK: [facility] BONE [id number]-[id number] (12/17/2016)TISSUE BANK: [facility] BONE CHIPS- GROUND BONE-WEDGES (12/17/2016)EEG - OR [...] Surgical Procedure: PSFSpine Level: L2-4 Room number:28 Machine:HiringSolved Technologist time:Set up: 1038 Start MonitorinEnd Monitorin [...] Current ResultLevel Current Result Any Any L2 28IhfdM8 30Pass L3 49VbplB5 30Pass L4 68EmsuP5 30Pass L5 L5 S1 S1 Comments:Muscles recorded were adductor longus, vastus lateralis, gastrocnemius, and extensor hallucis longus Anesthesia: Anesthesia was maintained by (Sevoflurane) at concentration of 1.8 in range. MAC level was 0.8. Other anesthetic used was remifentanil. Dorothy pulled by Alondra Anthony SPINE AP& LATERAL [...] Room: MAIN OR Service: Orthopaedics Log ID: [id number] Surgeon: Surgeon(s) and Role: * Dex Keita MD - Primary * Luis Felipe Vallejo MD Staff Information: Circulating Nurse: Rama Osorio RN; Shahida Hua RN; Radha Renee RN Lace Weaver- Scrub: Sheri Sanchez; Genoveva Kearns Anesthesia: General Findings: No unexpected findings, see below. Blood Loss: 600 ml Implants: Implant Name Type Inv. Item Serial No. Product Safety Test Engineer Lot No. LRB No. Used Action CANCELLOUS CHIPS 4-10MM 15CC - [id number] Tissue CANCELLOUS CHIPS 4-10MM 15CC [id number] [employer] [id number] N/A 2 Implanted KEIKO ORTHOBLEND SMALL DEFECT 5CC - [id number] Tissue KEIKO ORTHOBLEND SMALL DEFECT 5CC [id number] OSTEOTECH_INCN/A 2 Implanted KEIKO ORTHOBLEND SMALL DEFECT 10CC - [id number] Tissue KEIKO ORTHOBLEND SMALL DEFECT 10CC [id number] OSTEOTECH_INCN/A 2 Implanted SCREW SOLERA 6.0 SYSTEM BREAK OFF SET RADHA - [id number] Screw SCREW SOLERA 6.0 SYSTEM BREAK OFF SET RODMEDTRONIC_SOFAMOR_DANEKN/A 5 Implanted SCREW SOLERA 6.0 SYSTEM 6.5 X 45MM - [id number] Screw SCREW SOLERA 6.0 SYSTEM 6.5 X 45MMMEDTRONIC_SOFAMOR_DANEKN/A 5 Implanted RADHA SOLERA 6.0 SYSTEM CCM NS CURVED 5.5 X 70MM - [id number] SOLERA 6.0 SYSTEM CCM NS CURVED 5.5 X 70MM MEDTRONIC_SOFAMOR_DANEKN/A 1 Implanted RADHA SOLERA 6.0 SYSTEM CCM NS CURVED 5.5 X 60MM - [id number] RADHA SOLERA 6.0 SYSTEM CCM NS CURVED [...] performed at 1200 hours on 12/14/2016 at [facility]. 149 images are provided and interpreted on the in-house PACS. Procedure: MRI exam of the lumbar spine Procedure: EXTERNAL MRI-STORE & INTERPRET Indication: Spinal cord compression. Assess stenosis. Technique: Multisequence, multiplanar MRI of the lumbar spine without IV contrast. Comparison: 05/13/2014 lumbar spine MRI from [facility] Findings: There are 5 lumbar-type vertebrae. [...] performed at 1200 hours on 12/14/2016 at [facility]. 149 images are provided and interpreted on the in-house PACS. Procedure: MRI exam of the lumbar spine Procedure: EXTERNAL MRI-STORE & INTERPRET Indication: Spinal cord compression. Assess stenosis. Technique: Multisequence, multiplanar MRI of the lumbar spine without IV contrast. Comparison: 05/13/2014 lumbar spine MRI from [facility] Findings: There are 5 lumbar-type vertebrae. [...] For inpatient phlebotomy redraws, please contact pager #[phone] between the hours of 05:00 to 13:00. [...] Cloudy(A) Clear pH, Urine 5.0 <9.0 Spec [place], Urine 1.015 1.000-1.030 Glucose, Urine Negative Negative [...] Abnormality Status --------- ------ URINALYSIS WITH REFLEX C...[[id number]]AbnormalFinal result MICROSCOPIC URINALYSIS[[id number]] Abnormal Final result URINE CULTURE, REFLEXED[[id number]]Abnormal Final result Please view results for these tests on the individual orders. URINE CULTURE, REFLEXED (12/14/2016 10:27 PM) Component Value Range Quantitative Culture >100,000 CFU/mL Escherichia coli(A) Specimen Culture - Urine, Midstream clean catch Narrative Identification performed by MALDI-TOF mass spectrometry (MS).The performance characteristics of MALDI-TOF MS were determined by the [facility].It has not been cleared orApproved by [...] For inpatient phlebotomy redraws, please contact pager #[phone] between the hours of 05:00 to 13:00. [...]
--- NOTE | 2017-01-12 23:06 | HP ---
<Kira Roque - Last Filed: 01/13/17 05:52> Chief Complaint - Chief Complaint Date of Service: 01/12/17 Time of Service: 22:56 Chief Complaint: "Chest Pain/pressure". Source of HPI- Pt; reliable, ER provider report. History of Present Illness: Ms. Gastelum is a 86-yr-old AA female pt of Dr. Eric Yu with a PMH of: Afib with RVR, CVA, DM II, HTN, HLD & Glaucoma. 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 She states that after eating supper at about 6 pm, she took a nap. She was suddenly awakened by Left side chest pain/pressure, which was radiating to the LT arm and up to the the left side of neck and face. She described the pain as 'pressure like' and felt like 'someone was hitting her chest with a hammer.' She notified the nursing staff at the facility and she was brought to the [facility] ER. She denies the associated symptoms of N/V, Diaphoresis & SOB. During evaluation at the ED, she was found to be in A-fib with RVR of 110s. There was no hypoxia. She was given a one time dose of Diltiazem 10mg IV, Aspirin and Morphine and she reports that she got relief.At the time of physical exam, she is in no distress & denies having any chest pressure. She will be admitted under observation with for cardiac telemetry moniroting. - Patient's Past Medical History Patient History - Medical: Diabetes Type 2, Hypothyroidism, Obesity, Other Patient History - Cardiac/Respiratory: Asthma, CVA/Stroke, Hypertension Patient History - Cancer: No Hx of Cancer Patient History - Surgical Procedures: Cholecystectomy, Hysterectomy, Total Knee Replacement, T & A Patient History - Other: None LMP (females 10-50): Menopausal - Family History Mother Family History - Medical: , Diabetes Type 2 Family History - Cardiac/Respiratory: No pertinent hx Family History - Cancer: No pertinent family hx Father Family History - Medical: Family History - Cardiac/Respiratory: COPD Family History - Cancer: No pertinent family hx - Social History Living Situations: snf Abuse History: No History of abuse Psych History: No pertinent hx Smoking Status: Never smoker Have you smoked in the past 12 months: No Do you dip or chew tobacco: No Alcohol Use: none Drug Use: none - Immunizations Immunizations Up to Date: Yes Hx Pneumococcal Vaccination: Yes History of Influenza Vaccine: Yes Review Of Systems (GEN) - Review of Systems Generalized/Overall Review: Absent: Weakness, Chills, Fever EENTM: Absent: Eye Pain, Blurred Vision Respiratory: Absent: Cough, Shortness of Breath, Orthopnea Cardiac: Present: Chest Pain, Palpitations. Absent: Edema, Syncope Abdominal: Present: Constipation. Absent: Nausea, Vomiting, Hematemesis, Abdominal Pain, Melena Genitourinary: Present: Incontinent. Absent: Burning, Itching, Urgency Musculoskeletal: Present: Back Pain. Absent: Joint Pain Neurological: Present: Weakness. Absent: Headache, Anxiety, Depressed Skin: Absent: Dryness, Lesions, Lumps Endocrine: Present: Intolerance to Heat. Absent: Intolerance to Cold, Increased Hunger, Flushing, Increased Thirst Misc: All systems neg except as marked Allergies/Adverse Reactions: Allergies Allergy/AdvReac Type Severity Reaction Status Date / Time penicillin G Allergy Intermediate Hives Verified 01/12/17 19:38 Home Medications: HOME MEDICATIONS Albuterol Sulfate [Proventil Hfa] 6.7 gm IH QID 12/13/16 [Last Taken 12/12/16] Amlodipine Besylate 10 mg PO DAILY 12/13/16 [Last Taken 12/13/16] Aspirin/Dipyridamole [Aggrenox] 1 cap PO BID 12/13/16 [Last Taken 12/13/16] Atorvastatin Calcium [Lipitor] 10 mg PO DAILY 12/13/16 [Last Taken 12/13/16] Metoprolol Succinate [Toprol Xl] 50 mg PO 12/13/16 [Last Taken 12/13/16] Potassium Chloride [Klor-Con 10] 10 meq PO TID 12/13/16 [Last Taken 12/13/16] Quinapril HCl [Accupril] 10 mg PO DAILY 12/13/16 [Last Taken 12/13/16] glipiZIDE [Glipizide] 5 mg PO DAILY 12/13/16 [Last Taken 12/13/16] traZODone HCL [Trazodone HCl] 50 mg PO 12/13/16 [Last Taken 12/12/16] Albuterol Sulfate [Albuterol Sulfate 2.5 MG/3 ML] 2.5 mg IH Q4H PRN #0 vial.neb 01/13/17 [Last Taken Unknown] Amiodarone HCl [Cordarone] 200 mg PO DAILY #1 tablet 01/13/17 [Last Taken Unknown] Apixaban [Eliquis] 5 mg PO BID #1 tablet 01/13/17 [Last Taken Unknown] Bimatoprost [Lumigan 0.01% Ophthalmic Solution] 2.5 ml OP 01/13/17 [Last Taken Unknown] Brimonidine Tartrate [Alphagan-P 0.1% Ophthalmic Solution] 5 ml OP BID 01/13/17 [Last Taken Unknown] Dorzolamide HCl/Timolol Maleat [Dorzolamide-Timolol Eye Drops] 10 ml OP TID 08/31 [Last Taken Unknown] FLUoxetine HCL [Prozac] 20 mg PO DAILY #30 cap 01/13/17 [Last Taken Unknown] Levofloxacin [Levaquin] 500 mg PO DAILY@0730 #10 tablet 01/13/17 [Last Taken Unknown] Ropinirole HCl 5 mg PO DAILY 01/13/17 [Last Taken Unknown] predniSONE [Prednisone] 30 mg PO Q12H #60 tablet 01/13/17 [Last Taken Unknown] Exam - Exam Vital Signs: Vital Signs - Last Taken Temp 36.9 C 01/12/17 22:17 Pulse 81 01/12/17 22:17 Resp 16 01/12/17 22:17 BP 131/72 01/12/17 22:17 Pulse Ox 97 01/12/17 22:17 Constitutional: Present: Alert, Oriented x3, Cooperative, No distress, Elderly ENT Exam: Present: normal ENT inspection, hearing grossly normal. Absent: nasal congestion, nasal drainage Eye Exam: bilateral eye: normal inspection, PERRL Neck: Present: full range of motion, supple, normal inspection Back Exam: Present: normal inspection Breasts: Present: Exam deferred Respiratory: Present: lungs clear, normal breath sounds, no accessory muscle use , No wheezing Cardiovascular/Chest: Present: normal peripheral pulses, no murmur, irregularly irregular Abdomen: Present: Normal bowel sounds, soft, nontender, obese /Rectal: Present: Exam deferred Extremity: Present: non-tender, normal inspection, no pedal edema, no calf tenderness Skin Exam: Present: warm/dry, no cyanosis Lymphatic: Present: no adenopathy Neurologic: Present: no motor/sensory deficits, alert, normal mood/affect, oriented x 3. Absent: dizzy/light-headedness Appearance: Present: appropriate appearance, appropriate insight Eye contact: Present: cooperative, good eye contact, normal speech Thoughts: Present: normal thought pattern, no apparent hallucination Diagnostic Studies: Laboratory Results WBC 7.4 K/mm3 (4.0-10.5) 01/12/17 19:31 RBC 3.99 M/mm3 (4.2-5.4) L 01/12/17 19:31 Hgb 11.0 gm/dL (12.5-16.0) L 01/12/17 19:31 Hct 32.7 % (37.0-47.0) L 01/12/17 19:31 MCV 82.0 fl (78-100) 01/12/17 19:31 MCH 27.6 pg (27-31) 01/12/17 19:31 MCHC 33.6 g/dl (32-36) 01/12/17 19:31 RDW 15.3 % (11.5-14.0) H 01/12/17 19:31 Plt Count 200 K/mm3 (150-450) 01/12/17 19:31 MPV 9.8 fl (6.0-9.5) H 01/12/17 19:31 Immature Gran % (Auto) 0.30 % (0.001-0.429) 01/12/17 19:31 Immature Gran # (Auto) 0.02 K/mm3 (0.000-0.0310) 01/12/17 19:31 Neutrophils % 62.1 % (42-75.0) 01/12/17 19:31 Lymphocytes % 22.4 % (20-51) 01/12/17 19:31 Monocytes % 9.0 % (0.0-9) 01/12/17 19:31 Eosinophils % 5.7 % (0.0-3.0) H 01/12/17 19:31 Basophils % 0.5 % (0.0-1.0) 01/12/17 19:31 Nucleated RBC % 0.0 k/mm3 (0-1) 01/12/17 19:31 Neutrophils # 4.6 K/mm3 (1.3-6.0) 01/12/17 19:31 Lymphocytes # 1.7 k/mm3 (1.5-3.5) 01/12/17 19:31 Monocytes # 0.7 k/mm3 (0.0-1.0) 01/12/17 19:31 Eosinophils # 0.4 k/mm3 (0.0-0.7) 01/12/17 19:31 Absolute Basophils 0.0 k/mm3 (0.0-0.1) 01/12/17 19:31 PT 11.3 Seconds (9.4-11.4) 01/12/17 19:45 INR (Anticoag Therapy) 1.09 INR (0.90-1.10) 01/12/17 19:45 PTT (Nance) 25.4 Seconds (24-32) 01/12/17 19:45 Sodium 143 mmol/L (132-142) H 01/12/17 19:45 Plasma Sodium 144 mmol/L (130-142) H 01/12/17 19:45 Potassium 4.3 mmol/L (3.4-4.6) 01/12/17 19:45 Chloride 107 mmol/L (97-106) H 01/12/17 19:45 Carbon Dioxide 28.4 mmol/L (24-32.6) 01/12/17 19:45 Anion Gap 11.9 mmol/L (6.8-13.8) 01/12/17 19:45 BUN 16 mg/dL (3-23) 01/12/17 19:45 Creatinine 0.96 mg/dL (0.4-1.4) 01/12/17 19:45 Est GFR (Non-Af Amer) 71 mL/min (60-130) 01/12/17 19:45 BUN/Creatinine Ratio 16.7 (9.0-21.6) 01/12/17 19:45 Random Glucose 193 mg/dL (70-110) H 01/12/17 19:45 Calcium 8.9 mg/dL (7.9-10.9) 01/12/17 19:45 Calcium Adj for Albumin 9.6 mg/dL (8.4-10.2) 01/12/17 19:45 Total Bilirubin 0.4 mg/dL (0.0-1.1) 01/12/17 19:45 AST 14 U/L (0-48) 01/12/17 19:45 ALT 13 U/L (19-67) L 01/12/17 19:45 Alkaline Phosphatase 112 U/L (50-170) 01/12/17 19:45 Troponin I Less than 0.017 ng/ml (0.00-0.10) 01/12/17 21:30 Total Protein 6.7 gm/dL (6.2-8.2) 01/12/17 19:45 Albumin 2.7 gm/dl (3.4-5.0) L 01/12/17 19:45 Assessment/Plan - Assessment/Plan (1) Atrial fibrillation with RVR Assessment: Pt was noted to be in Afib with RVR of 110s on EKG & she was symptomatic with this epidose. She was given IV Diltiazem 10 mg and the rate was controlled to < 100, even though, she remained on Afib. While on the [facility] floor, her HR remained controlled to < 100./stayed in the 70's range. Pt was hospitalized in and was found to have new onset Afib with RVR. She was started anticoagulation, Her metoprolol restarted and She had an Echocardiogram which showed these findings: EF 45-50%, Mild LVH, Mild tricuspid regurgitation, RVSP of 40. Will keep her on cardiac monitoring and if no acute events overnight, will continue her previous regimen for Afib. Problem: Acute (2) Chest pain Assessment: The first EKG and Troponin was negative for ACS/TX. Will monitor serial troponin 's and repeat EKG. Problem: Acute (3) Sciatica Problem: Chronic QualifierTitle: Laterality: right Qualified Code(s): M54.31 - Sciatica, right side (4) CVA (cerebral vascular accident) Problem: Chronic QualifierTitle: CVA mechanism: occlusion Precerebral and cerebral artery : unspecified cerebral artery Qualified Code(s): I63.50 - Cerebral infarction due to unspecified occlusion or stenosis of unspecified cerebral artery (5) Diabetes mellitus type 2 in obese Problem: Chronic (6) Hyperlipidemia Problem: Chronic QualifierTitle: Hyperlipidemia type: mixed hyperlipidemia Qualified Code( s): E78.2 - Mixed hyperlipidemia (7) Hypertension Problem: Chronic QualifierTitle: Hypertension type: essential hypertension Qualified Code( s): I10 - Essential (primary) hypertension <Eric Yu - Last Filed: 01/13/17 12:04> Immunizations: IMMUNIZATION HX Immunizations Up to Date Yes History of Influenza Vaccine Yes Hx Pneumococcal Vaccination Yes Exam - Exam Vital Signs: Vital Signs - Last Taken Temp 36.9 C 01/13/17 10:00 Pulse 61 01/13/17 10:29 Resp 20 01/13/17 10:29 BP 138/77 01/13/17 10:00 Pulse Ox 98 01/13/17 10:19 Diagnostic Studies: Laboratory Results WBC 7.4 K/mm3 (4.0-10.5) 01/12/17 19:31 RBC 3.99 M/mm3 (4.2-5.4) L 01/12/17 19:31 Hgb 11.0 gm/dL (12.5-16.0) L 01/12/17 19:31 Hct 32.7 % (37.0-47.0) L 01/12/17 19:31 MCV 82.0 fl (78-100) 01/12/17 19:31 MCH 27.6 pg (27-31) 01/12/17 19:31 MCHC 33.6 g/dl (32-36) 01/12/17 19:31 RDW 15.3 % (11.5-14.0) H 01/12/17 19:31 Plt Count 200 K/mm3 (150-450) 01/12/17 19:31 MPV 9.8 fl (6.0-9.5) H 01/12/17 19:31 Immature Gran % (Auto) 0.30 % (0.001-0.429) 01/12/17 19:31 Immature Gran # (Auto) 0.02 K/mm3 (0.000-0.0310) 01/12/17 19:31 Neutrophils % 62.1 % (42-75.0) 01/12/17 19:31 Lymphocytes % 22.4 % (20-51) 01/12/17 19:31 Monocytes % 9.0 % (0.0-9) 01/12/17 19:31 Eosinophils % 5.7 % (0.0-3.0) H 01/12/17 19:31 Basophils % 0.5 % (0.0-1.0) 01/12/17 19:31 Nucleated RBC % 0.0 k/mm3 (0-1) 01/12/17 19:31 Neutrophils # 4.6 K/mm3 (1.3-6.0) 01/12/17 19:31 Lymphocytes # 1.7 k/mm3 (1.5-3.5) 01/12/17 19:31 Monocytes # 0.7 k/mm3 (0.0-1.0) 01/12/17 19:31 Eosinophils # 0.4 k/mm3 (0.0-0.7) 01/12/17 19:31 Absolute Basophils 0.0 k/mm3 (0.0-0.1) 01/12/17 19:31 PT 11.3 Seconds (9.4-11.4) 01/12/17 19:45 INR (Anticoag Therapy) 1.09 INR (0.90-1.10) 01/12/17 19:45 PTT (Nance) 25.4 Seconds (24-32) 01/12/17 19:45 Sodium 143 mmol/L (132-142) H 01/12/17 19:45 Plasma Sodium 144 mmol/L (130-142) H 01/12/17 19:45 Potassium 4.3 mmol/L (3.4-4.6) 01/12/17 19:45 Chloride 107 mmol/L (97-106) H 01/12/17 19:45 Carbon Dioxide 28.4 mmol/L (24-32.6) 01/12/17 19:45 Anion Gap 11.9 mmol/L (6.8-13.8) 01/12/17 19:45 BUN 16 mg/dL (3-23) 01/12/17 19:45 Creatinine 0.96 mg/dL (0.4-1.4) 01/12/17 19:45 Est GFR (Non-Af Amer) 71 mL/min (60-130) 01/12/17 19:45 BUN/Creatinine Ratio 16.7 (9.0-21.6) 01/12/17 19:45 Random Glucose 193 mg/dL (70-110) H 01/12/17 19:45 Calcium 8.9 mg/dL (7.9-10.9) 01/12/17 19:45 Calcium Adj for Albumin 9.6 mg/dL (8.4-10.2) 01/12/17 19:45 Total Bilirubin 0.4 mg/dL (0.0-1.1) 01/12/17 19:45 AST 14 U/L (0-48) 01/12/17 19:45 ALT 13 U/L (19-67) L 01/12/17 19:45 Alkaline Phosphatase 112 U/L (50-170) 01/12/17 19:45 Troponin I Less than 0.017 ng/ml (0.00-0.10) 01/12/17 21:30 Total Protein 6.7 gm/dL (6.2-8.2) 01/12/17 19:45 Albumin 2.7 gm/dl (3.4-5.0) L 01/12/17 19:45 Assessment/Plan - Narrative Narrative: The patient also has chronic severe asthma with multiple flares. This flare has lasted for a week and is worsening. She wishes to go home. The asthma this time is accomanied by green phlegm, but no fever. The chest pain and fast heart rate have come at the end of the flare. She has had long standing a fib. She has had a fib between the last hospitalization and this one. Her back surgery wound is healing well. I have supervised all of our nurse practitioner hospitalist's care for this patient. - Assessment/Plan (1) Chronic asthma with acute exacerbation Problem: Acute (2) Acute bronchitis Problem: Acute Qualifiers: Bronchitis organism: unspecified organism Qualified Code(s): J20.9 - Acute bronchitis, unspecified (3) Weakness Problem: Chronic (4) Depression Problem: Acute Qualifiers: Depression Type: major depressive disorder Major depression recurrence: recurrent Active/Remission status: currently active Major depression episode severity: moderate Qualified Code(s): F33.1 - Major depressive disorder, recurrent, moderate (5) Atrial fibrillation with RVR Problem: Resolved (6) Chest pain Problem: Acute Qualifiers: Chest pain type: other chest pain Qualified Code(s): R07.89 - Other chest pain; R07.8 - Other chest pain (7) CVA (cerebral vascular accident) Problem: Chronic Qualifiers: CVA mechanism: occlusion Precerebral and cerebral artery: unspecified cerebral artery Qualified Code(s): I63.50 - Cerebral infarction due to unspecified occlusion or stenosis of unspecified cerebral artery (8) Diabetes mellitus type 2 in obese Problem: Chronic (9) Hyperlipidemia Problem: Chronic Qualifiers: Hyperlipidemia type: mixed hyperlipidemia Qualified Code(s): E78.2 - Mixed hyperlipidemia (10) Hypertension Problem: Chronic Qualifiers: Hypertension type: essential hypertension Qualified Code(s): I10 - Essential (primary) hypertension (11) Sciatica Problem: Chronic Qualifiers: Laterality: right Qualified Code(s): M54.31 - Sciatica, right side
[2017-01-13] MEDS ORDERED: NAPROXEN SODIUM 220 MG TABLET PO PRN (06:10)
[2017-01-13] MEDS ORDERED: ALBUTEROL SULFATE 2.5 MG/3 ML VIAL.NEB IH PRN ×2 (07:28→07:40)
[2017-01-13] MEDS ORDERED: LEVOFLOXACIN 500 MG TABLET PO SCH (07:30)
[2017-01-13] MEDS: ALBUTEROL SULFATE 2.5 MG/3 ML VIAL.NEB IH SCH ×2 (07:54→10:19)
[2017-01-13] MEDS ORDERED: predniSONE 10 MG TABLET PO SCH (08:00)
[2017-01-13] MEDS ORDERED: TIMOLOL MALEATE/DORZOLAM HCL 100 DROP BTL OP SCH (09:00)
[2017-01-13] MEDS ORDERED: DIPYRIDAMOLE PO SCH (09:00)
[2017-01-13] MEDS ORDERED: ENALAPRIL MALEATE 5 MG TABLET PO SCH (09:00)
[2017-01-13] MEDS ORDERED: amLODIPine BESYLATE 10 MG TABLET PO SCH (09:00)
[2017-01-13] MEDS ORDERED: BRIMONIDINE TARTRATE 50 DROP BTL OP SCH (09:00)
[2017-01-13] MEDS ORDERED: ASPIRIN PO SCH (09:00)
[2017-01-13] MEDS ORDERED: POTASSIUM CHLORIDE 10 MEQ TABLET.SA PO SCH (09:00)
[2017-01-13] MEDS ORDERED: glipiZIDE 5 MG TABLET PO SCH (09:00)
[2017-01-13 10:48] VITALS: BP 138/77
--- NOTE | 2017-01-13 11:57 | DS ---
(1) Chronic asthma with acute exacerbation Problem: Acute (2) Acute bronchitis Problem: Acute Qualifiers: Bronchitis organism: unspecified organism Qualified Code(s): J20.9 - Acute bronchitis, unspecified (3) Weakness Problem: Chronic (4) Depression Problem: Acute Qualifiers: Depression Type: major depressive disorder Major depression recurrence: recurrent Active/Remission status: currently active Major depression episode severity: moderate Qualified Code(s): F33.1 - Major depressive disorder, recurrent, moderate (5) Atrial fibrillation with RVR Problem: Resolved (6) Chest pain Problem: Acute Qualifiers: Chest pain type: other chest pain Qualified Code(s): R07.89 - Other chest pain; R07.8 - Other chest pain (7) CVA (cerebral vascular accident) Problem: Chronic Qualifiers: CVA mechanism: occlusion Precerebral and cerebral artery: unspecified cerebral artery Qualified Code(s): I63.50 - Cerebral infarction due to unspecified occlusion or stenosis of unspecified cerebral artery (8) Diabetes mellitus type 2 in obese Problem: Chronic (9) Hyperlipidemia Problem: Chronic Qualifiers: Hyperlipidemia type: mixed hyperlipidemia Qualified Code(s): E78.2 - Mixed hyperlipidemia (10) Hypertension Problem: Chronic Qualifiers: Hypertension type: essential hypertension Qualified Code(s): I10 - Essential (primary) hypertension (11) Sciatica Problem: Chronic Qualifiers: Laterality: right Qualified Code(s): M54.31 - Sciatica, right side Description of Stay: Ruled out for [place]. Has had progressive asthma and bronchitis for a week. Has chronic asthma. Will treat. Has chronic weakness, would like to return home. Has chronic a fib. I think the asthma attack and bronchits gave her RVR and chest pain. Has a niece who could take care of her at home if she is willing to do so. Procedures Performed: none Discharge Disposition: [facility] Disposition: [facility] Condition: Fair Discharge Activity: Activity as tolerated Discharge Diet: Consistent carbs Discharge Level of Care:: SNF - Senior Living Senior Living Therapy: Physicial Therapy, Occupation Therapy Referrals: Eric Yu MD [Primary Care Provider] - Problem Oriented Discharge Instructions to Patient/Family: Asthma, Adult, Easy- to-Read, Atrial Fibrillation, [id number], Acute Bronchitis, [id number] Additional Patient Instructions (free text): Let's push the rehab hard for 3 months. I will push the patient's motivation hard. Let's see if her niece is WILLING to take care of her at home.............the patient seems to thing so. IF so, we need a wheelchair at home. Please arrange a Pharmacologic nuclear stress test for her for outpatient next week due to the chest pain. CBC CMP and Protime in 1 week. Prescriptions (Any new or edited meds): Amiodarone HCl [Cordarone] 200 mg PO DAILY #1 tablet Apixaban [Eliquis] 5 mg PO BID #1 tablet FLUoxetine HCL [Prozac] 20 mg PO DAILY #30 cap Levofloxacin [Levaquin] 500 mg PO DAILY@0730 #10 tablet Complete Home Medications List: Complete Home Medication List: Albuterol Sulfate [Proventil Hfa] 6.7 gm IH QID 12/13/16 Amlodipine Besylate 10 mg PO DAILY 12/13/16 Aspirin/Dipyridamole [Aggrenox] 1 cap PO BID 12/13/16 Atorvastatin Calcium [Lipitor] 10 mg PO DAILY 12/13/16 Metoprolol Succinate [Toprol Xl] 50 mg PO HS 12/13/16 Potassium Chloride [Klor-Con 10] 10 meq PO TID 12/13/16 Quinapril HCl [Accupril] 10 mg PO DAILY 12/13/16 glipiZIDE [Glipizide] 5 mg PO DAILY 12/13/16 traZODone HCL [Trazodone HCl] 50 mg PO HS 12/13/16 Albuterol Sulfate [Albuterol Sulfate 2.5 MG/3 ML] 2.5 mg IH Q4H PRN #0 vial.neb 01/13/17 Amiodarone HCl [Cordarone] 200 mg PO DAILY #1 tablet 01/13/17 Apixaban [Eliquis] 5 mg PO BID #1 tablet 01/13/17 Bimatoprost [Lumigan 0.01% Ophthalmic Solution] 2.5 ml OP 01/13/17 Brimonidine Tartrate [Alphagan-P 0.1% Ophthalmic Solution] 5 ml OP BID 01/13/17 Dorzolamide HCl/Timolol Maleat [Dorzolamide-Timolol Eye Drops] 10 ml OP TID 08/31 FLUoxetine HCL [Prozac] 20 mg PO DAILY #30 cap 01/13/17 Levofloxacin [Levaquin] 500 mg PO DAILY@0730 #10 tablet 01/13/17 Ropinirole HCl 5 mg PO DAILY 01/13/17 predniSONE [Prednisone] 30 mg PO Q12H #60 tablet 01/13/17
[2017-01-13] MEDS ORDERED: rOPINIRole HCL 1 MG TABLET PO SCH (21:00)
[2017-01-13] MEDS ORDERED: METOPROLOL SUCCINATE 50 MG TABLET.SA PO SCH (21:00)
[2017-01-13] MEDS ORDERED: ROSUVASTATIN CALCIUM 10 MG TABLET PO SCH (21:00)
[2017-01-13] MEDS ORDERED: traZODone HCL 50 MG TABLET PO SCH (21:00)
[2017-01-13] MEDS ORDERED: BIMATOPROST 25 DROP BTL OP SCH (21:00)
== END 2017-01-13 12:15 ==
LOC: ER 19:25 → MS 21:21 → UNDOADMOB 21:21 → MS 21:32
PROVIDERS: ADMIT Nurse Practitioner; ATTEND Allergy & Immunology
DX: J45.901 Unspecified asthma with (acute) exacerbation (principal); J20.9 Acute bronchitis, unspecified; I48.2 Chronic atrial fibrillation; Z79.01 Long term (current) use of anticoagulants; E11.9 Type 2 diabetes mellitus without complications; Z86.73 Personal history of transient ischemic attack (TIA), and cerebral infarction without residual deficits; I10 Essential (primary) hypertension; E78.5 Hyperlipidemia, unspecified; F33.1 Major depressive disorder, recurrent, moderate; M54.31 Sciatica, right side
CPT/HCPCS: 36415; 71010; 80053; 84484; 85025; 85610; 85730; 87081; 93005; 94640; 96374; 99284; G0378

== ENCOUNTER 2017-01-22 15:18 | Emergency (ER) | payer MEDICARE ==
--- OUTSIDE RECORDS SUMMARY | 2017-01-22 16:06 | XMS REPORT | Continuity of Care Document ---
:1930 Author Organization [facility] ([facility]) Address [place] [address] Phone [phone] Care Team Providers Name Role Phone Eric Steward Primary Care Provider [phone] Source Comments This disclosure is being made pursuant to the Care Everywhere program, applicable federal and state laws, and may not contain all informaitonavailable regarding this patient.[facility] ([facility]) Active Allergies and Adverse Reactions Allergen Noted Date Severity Reactions Comments Penicillins Angioedema Current Medications Prescription Sig. Disp. Refills Start End Date Status Date atorvastatin 10 mg Take 10 mg by Active tablet mouth every evening. potassium chloride Take 10 mEq by Active 10 mEq tablet mouth 3 times daily. traZODone 50 mg Take 50 mg by Active tablet mouth at bedtime. metoPROLol Take 50 mg by Active succinate 100 mg mouth daily. XL tablet docusate 100 mg Take 1 capsule 60 capsule 1 Active capsule (100 mg total) by 7 mouth 2 times daily. sennosides 8.6 mg Take 1 tablet (8.6 60 tablet 1 Active tablet mg total) by mouth 7 2 times daily. brimonidine 1 Drop 3 times Active (ALPHAGAN P) 0.1 % daily. ophthalmic solution amiodarone 200 mg Take 200 mg by Active tablet mouth daily. amLODIPine 10 mg Take 10 mg by Active tablet mouth daily. aspirin-dipyridamo Take 1 capsule by Active le (AGGRENOX) mouth 2 times 25-200 mg per daily. capsule dorzolamide-timolo Instill 1 Drop Active l 2-0.5 % onto both eyes 2 ophthalmic times daily. solution apixaban (ELIQUIS) Take 5 mg by mouth Active 5 mg tablet 2 times daily. FLUoxetine 20 mg Take 20 mg by Active capsule mouth daily. glipiZIDE 5 mg Take 5 mg by mouth Active tablet daily. levoFLOXacin 500 Take 500 mg by Active mg tablet mouth daily. bimatoprost Instill 1 Drop Active (LUMIGAN) 0.01 % onto both eyes ophthalmic every evening. solution predniSONE 10 mg Take 30 mg by Active tablet mouth 2 times daily. albuterol 90 Use 2 Puffs by Active mcg/Actuation inhalation every 6 inhaler hours as needed. quinapril 10 mg Take 10 mg by Active tablet mouth every evening. acetaminophen 325 Take 325 mg by Active mg tablet mouth every 4 hours as needed. rOPINIRole 4 mg Take 4 mg by mouth Active tablet daily. albuterol 90 Use 2 Puffs by 01/18/20 Discontinued mcg/Actuation inhalation every 6 17 inhaler hours as needed. quinapril 10 mg Take 10 mg by 01/18/20 Discontinued tablet mouth every 17 evening. enoxaparin 40 Inject 40 mg 14 Syringe 0 01/18/20 Discontinued mg/0.4 mL subcutaneously 7 17 injection syringe daily. oxyCODONE-acetamin Take 1-2 tablets 80 tablet 0 12/30/19 Discontinued ophen 5-325 mg per by mouth every 4 7 17 tablet hours as needed for Pain. Do NOT exceed 4000 mg of acetaminophen per 24 hours. aspirin 81 mg Take 1 tablet (81 45 tablet 0 01/18/20 Discontinued chewable tablet mg total) by mouth 7 17 daily. risperiDONE 0.25 Take 0.25 mg by 01/18/20 Discontinued mg tablet mouth at bedtime. 17 Active Problems Problem Noted Date DMII (diabetes mellitus, type 2) 12/17/2016 Hyperlipidemia 12/17/2016 History of stroke 12/17/2016 HTN (hypertension) 12/17/2016 Spinal stenosis, lumbar region, with neurogenic claudication 12/17/2016 UTI (urinary tract infection) 12/17/2016 Overview: Present on admission, treated with Cipro Acute blood loss anemia 12/17/2016 Overview: Monitored H/H, no treatments needed Spinal cord compression 12/14/2016 Most Recent Encounters Date Type Specialty Providers Description 01/17/2017 Hospital Encounter Radiology Asael Alonso, Dx: Lumbar spine pain 01/17/2017 Office Visit Orthopaedic Dex Keita Dx: Lumbar spine pain (Primary Dx) 01/12/2017 Office Visit Orthopaedic Dex Keita, Chief Comp: Patient MD Reported Reason For Visit 01/11/2017 Telephone Orthopaedic Cait Arevalo Chief Comp: Appointment Request 01/09/2017 Orders/Notes Orthopaedic Dahiana Catherine MD 01/09/2017 Telephone Shannon Catherine Chief Comp: Advice Dahiana Archer MD Only 12/30/2016 Telephone Cait Darling 12/29/2016 Office Visit Orthopaedic Dex Keita, Dx: Spinal MD stenosis, lumbar region, with neurogenic claudication (Primary Dx) 12/16/2016 Hospital Encounter Neurology Lizandro Ayers, Dx: Spinal cord compression Makenzie Johnson MD [...] Dx: Spinal cord 12/21/2016 Inpatient - Adult Jamar, rex Moya MD (Primary Dx) Dex Keita MD Social [...] of Care Date Type Specialty Providers Description 03/02/2017 Appointment Orthopaedic Dex Keita MD Chief Comp: [...] 2017 DIABETIC: Hemoglobin A1C 06/16/2017 12/14/2016 [facility] Annual Coding Diabetes without Complication 08/15/2017 12/17/2016 Procedures from Last 3 Months Procedure Name Priority Date/Time Associated Diagnosis Comments ABSTRACTED BY Routine 12/16/2016 4:22 Spinal cord Results for this BILLING STAFF PM CDT compression procedure are in Pre-op evaluation the results section. FUSION SPINE 12/16/2016 11:05 Spinal cord POSTERIOR AM CDT compression THORACO[facility] OR TLIF[facility] O-Arm Results from Last 3 Months L SPINE AP& LATERAL (01/17/2017 10:19 AM)Only the most recent of2 resultswithin the time period is included. Impressions impression: There are 5 lumbar type vertebrae. Stable postoperative changes consistent with posterior spinal fusion spanning L2-L4 with laminectomy and bone grafting. The surgical hardware remains in stable positioning without evidence of interval complications. Moderate to severe disc space loss at the L1-L2, and L4-L5 level. Posterior element poorly visualized on crosstable lateral view. Narrative Procedures: L SPINE AP & LATERAL Indication: Evaluate postoperative changes Technique: AP and lateral views of the lumbar spine Comparison: 12/16/2016 Findings/ Procedure Note Pedro, Incoming Imaging Results - TueJan 18, 2017 9:13 AM CDT Procedures: L SPINE AP & LATERAL Indication: Evaluate postoperative changes Technique: AP and lateral views of the lumbar spine Comparison: 12/16/2016 Findings/ IMPRESSION impression: There are 5 lumbar type vertebrae. Stable postoperative changes consistent with posterior spinal fusion spanning L2-L4 with laminectomy and bone grafting. The surgical hardware remains in stable positioning without evidence of interval complications. Moderate to severe disc space loss at the L1-L2, and L4-L5 level. Posterior element poorly visualized on crosstable lateral view. BLOOD GLUCOSE, BEDSIDE (12/21/2016 6:51 AM)Only the [...] >60 mL/min/1.73 m2 Specimen Blood TISSUE BANK: [facility] BONE BEB-ORUOM-BJYQA (12/17/2016)TISSUE BANK: [facility] BONE CHIPS- GROUND BONE-WEDGES (12/17/2016)EEG - OR [...] Surgical Procedure: PSFSpine Level: L2-4 Room number:28 Machine:[employer] Technologist time:Set up: 1038 Start MonitorinEnd Monitorin Tech on stand by for 150 minutes Pedicle Screw Monitoring Procedure:[facility] technologist prepares and sets up the equipment [...] Current ResultLevel Current Result Any Any L2 14YqbuW3 30Pass L3 16OokjO3 30Pass L4 42NdnxY9 30Pass L5 L5 S1 S1 Comments:Muscles recorded were adductor longus, vastus lateralis, gastrocnemius, and extensor hallucis longus Anesthesia: Anesthesia was maintained by (Sevoflurane) at concentration of 1.8 in range. MAC level was 0.8. Other anesthetic used was remifentanil. [place] pulled by Alondra O-ARM CT LUMBAR SPINE W/O CONTRAST (12/16/2016 [...] Room: MAIN OR Service: Orthopaedics Log ID: [id number] Surgeon: Surgeon(s) and Role: * Dex Keita MD - Primary * Luis Felipe Vallejo MD Staff Information: Circulating Nurse: Rama Osorio RN; Shahida Hua RN; Radha Renee RN Glue Line Operator- Scrub: Sheri Sanchez; Genoveva Kearns Anesthesia: General Findings: No unexpected findings, see below. Blood Loss: 600 ml Implants: Implant Name Type Inv. Item Serial No. Return Clerk Lot No. LRB No. Used Action CANCELLOUS CHIPS 4-10MM 15CC - [id number] Tissue CANCELLOUS CHIPS 4-10MM 15CC [id number] [employer] [id number] N/A 2 Implanted KEIKO ORTHOBLEND SMALL DEFECT 5CC - [id number] Tissue KEIKO ORTHOBLEND SMALL DEFECT 5CC [id number] OSTEOTECH_INCN/A 2 Implanted KEIKO ORTHOBLEND SMALL DEFECT 10CC - [id number] Tissue KEIKO ORTHOBLEND SMALL DEFECT 10CC [id number] OSTEOTECH_INCN/A 2 Implanted SCREW SOLERA 6.0 SYSTEM BREAK OFF SET RADHA - [id number] Screw SCREW SOLERA 6.0 SYSTEM BREAK OFF SET RODMEDTRONIC_SOFAMOR_DANEKN/A 5 Implanted SCREW SOLERA 6.0 SYSTEM 6.5 X 45MM - [id number] Screw SCREW SOLERA 6.0 SYSTEM 6.5 X 45MMMEDTRONIC_SOFAMOR_DANEKN/A 5 Implanted RADHA SOLERA 6.0 SYSTEM [facility] NS CURVED 5.5 X 70MM - [id number] SOLERA 6.0 SYSTEM [facility] NS CURVED 5.5 X 70MM MEDTRONIC_SOFAMOR_DANEKN/A 1 Implanted RADHA SOLERA 6.0 SYSTEM [facility] NS CURVED 5.5 X 60MM - [id number] RADHA SOLERA 6.0 SYSTEM CCM NS CURVED [...] performed at 1200 hours on 12/14/2016 at [facility]. 149 images are provided and interpreted on the in-house PACS. Procedure: MRI exam of the lumbar spine Procedure: EXTERNAL MRI-STORE & INTERPRET Indication: Spinal cord compression. Assess stenosis. Technique: Multisequence, multiplanar MRI of the lumbar spine without IV contrast. Comparison: 05/13/2014 lumbar spine MRI from [facility] Findings: There are 5 lumbar-type vertebrae. There [...] performed at 1200 hours on 12/14/2016 at [facility]. 149 images are provided and interpreted on the in-house PACS. Procedure: MRI exam of the lumbar spine Procedure: EXTERNAL MRI-STORE & INTERPRET Indication: Spinal cord compression. Assess stenosis. Technique: Multisequence, multiplanar MRI of the lumbar spine without IV contrast. Comparison: 05/13/2014 lumbar spine MRI from [facility] Findings: There are 5 lumbar-type vertebrae. There [...] For inpatient phlebotomy redraws, please contact pager #[phone] between the hours of 05:00 to 13:00. [...] Cloudy(A) Clear pH, Urine 5.0 <9.0 Spec [place], Urine 1.015 1.000-1.030 Glucose, Urine Negative Negative [...] Abnormality Status --------- ------ URINALYSIS WITH REFLEX C...[[id number]]AbnormalFinal result MICROSCOPIC URINALYSIS[[id number]] Abnormal Final result URINE CULTURE, REFLEXED[[id number]]Abnormal Final result Please view results for these tests on the individual orders. URINE CULTURE, REFLEXED (12/14/2016 10:27 PM) Component Value Range Quantitative Culture >100,000 CFU/mL Escherichia coli(A) Specimen Culture - Urine, Midstream clean catch Narrative Identification performed by MALDI-TOF mass spectrometry (MS).The performance characteristics of MALDI-TOF MS were determined by the [facility].It has not been cleared orApproved by [...]
[2017-01-22 16:33] LABS: Hematocrit 33.6 % (37.0-47.0); Mean Cell Volume 77.2 fl (78-100); Mean Corpuscular Hemoglobin 27.6 pg (27-31); Mean Corpuscular Hgb Conc 35.7 g/dl (32-36); Mean Platelet Volume 9.9 fl (6.0-9.5); Neutrophil # 17.8 K/mm3 (1.3-6.0); Neutrophil % 88.5 % (42-75.0); Platelet Count 243 K/mm3 (150-450); Red Blood Count 4.35 M/mm3 (4.2-5.4); Red Cell Distribution Width 14.7 % (11.5-14.0); White Blood Count 20.1 K/mm3 (4.0-10.5)
[2017-01-22 16:43] LABS: ALT 14 U/L (19-67); AST 12 U/L (0-48); Albumin * 2.9 gm/dl (3.4-5.0); Alkaline Phosphatase * 84 U/L (50-170); Anion Gap 12.3 mmol/L (6.8-13.8); BUN/Creatinine Ratio 32.6 (9.0-21.6); Bilirubin, Total 0.7 mg/dL (0.0-1.1); Blood Urea Nitrogen 31 mg/dL (3-23); Ca. Corrected For Albumin 8.8 mg/dL (8.4-10.2); Calcium * 8.2 mg/dL (7.9-10.9); Carbon Dioxide 27.7 mmol/L (24-32.6); Chloride 97 mmol/L (97-106); Glucose * 185 mg/dL (70-110); Sodium 132 mmol/L (132-142); Total Protein 6.1 gm/dL (6.2-8.2)
--- NOTE | 2017-01-22 17:40 | ERNOTE ---
Medical Problem HPI - Narrative Date of Service: 01/22/17 - General Chief Complaint: General Assessment Time Seen by Provider: 01/22/17 15:56 Source: patient Exam Limitations: no limitations - Immun/Allergies/Home Medications Immunizations: IMMUNIZATION HX Immunizations Up to Date Yes History of Influenza Vaccine Yes Hx Pneumococcal Vaccination Yes Allergies/Adverse Reactions: Allergies penicillin G Allergy (Intermediate, Verified 01/22/17 16:00) Hives Home Medications: HOME MEDICATIONS Albuterol Sulfate [Proventil Hfa] 6.7 gm IH QID 12/13/16 [Last Taken 12/12/16] Amlodipine Besylate 10 mg PO DAILY 12/13/16 [Last Taken 12/13/16] Aspirin/Dipyridamole [Aggrenox] 1 cap PO BID 12/13/16 [Last Taken 12/13/16] Atorvastatin Calcium [Lipitor] 10 mg PO DAILY 12/13/16 [Last Taken 12/13/16] Metoprolol Succinate [Toprol Xl] 50 mg PO HS 12/13/16 [Last Taken 12/13/16] Potassium Chloride [Klor-Con 10] 10 meq PO TID 12/13/16 [Last Taken 12/13/16] Quinapril HCl [Accupril] 10 mg PO DAILY 12/13/16 [Last Taken 12/13/16] glipiZIDE [Glipizide] 5 mg PO DAILY 12/13/16 [Last Taken 12/13/16] traZODone HCL [Trazodone HCl] 50 mg PO HS 12/13/16 [Last Taken 12/12/16] Albuterol Sulfate [Albuterol Sulfate 2.5 MG/3 ML] 2.5 mg IH Q4H PRN #0 vial.neb 01/13/17 [Last Taken Unknown] Amiodarone HCl [Cordarone] 200 mg PO DAILY #1 tablet 01/13/17 [Last Taken Unknown] Apixaban [Eliquis] 5 mg PO BID #1 tablet 01/13/17 [Last Taken Unknown] Bimatoprost [Lumigan 0.01% Ophthalmic Solution] 2.5 ml OP 01/13/17 [Last Taken Unknown] Brimonidine Tartrate [Alphagan-P 0.1% Ophthalmic Solution] 5 ml OP BID 01/13/17 [Last Taken Unknown] Dorzolamide HCl/Timolol Maleat [Dorzolamide-Timolol Eye Drops] 10 ml OP TID 08/31 [Last Taken Unknown] FLUoxetine HCL [Prozac] 20 mg PO DAILY #30 cap 01/13/17 [Last Taken Unknown] Levofloxacin [Levaquin] 500 mg PO DAILY@0730 #10 tablet 01/13/17 [Last Taken Unknown] Ropinirole HCl 5 mg PO DAILY 01/13/17 [Last Taken Unknown] predniSONE [Prednisone] 30 mg PO Q12H #60 tablet 01/13/17 [Last Taken Unknown] - History of Present History Narrative: Patient presents to the ED for evaluation of a back wound. She has been having some drainage from a post surgical wound on her back. Vanco had been started and her PCP wanted labs but they were unable to be drawn so she was sent to the ED. She denies acute pain or acute weakness. She relates some left leg weakness ever since the surgery but this is not different than what it had been. No fever. Timing: constant Modifying Factors - (Improves): Present: other - nothing Modifying Factors - (Worsens): Present: other - nothign Review of Systems - Review of Systems Constitutional: Absent: fever Respiratory: Absent: shortness of breath Cardiology: Absent: chest pain Gastrointestinal/Abdominal: Absent: abdominal pain Skin: Present: See HPI Neurological: Present: See HPI - Patient's Past Medical History Patient History - Medical: Diabetes Type 2, Hypothyroidism, Obesity, Other Patient History - Cardiac/Respiratory: Asthma, CVA/Stroke, Hypertension Patient History - Cancer: No Hx of Cancer Patient History - Surgical Procedures: Cholecystectomy, Hysterectomy, Total Knee Replacement, T & A Patient History - Other: None - Family History Mother Family History - Medical: , Diabetes Type 2 Family History - Cardiac/Respiratory: No pertinent hx Family History - Cancer: No pertinent family hx Father Family History - Medical: Family History - Cardiac/Respiratory: COPD Family History - Cancer: No pertinent family hx - Social History Living Situations: [facility] Abuse History: No History of abuse Psych History: No pertinent hx Smoking Status: Former smoker Alcohol Use: none Drug Use: none - Immunizations Immunizations Up to Date: Yes Hx Pneumococcal Vaccination: Yes History of Influenza Vaccine: Yes Physical Exam - Physical Exam General Appearance: Present: alert, no apparent distress, other - stable, non- toxic, no distress. No findings of sepsis.\ Eye Exam: Normal inspection: bilateral Ears, Nose, Throat: Absent: dry mucous membranes Neck: Present: other - trachea midline Respiratory: Present: no respiratory distress, lungs clear Cardiovascular/Chest: Present: regular rate, rhythm Gastrointestinal/Abdominal: Present: normal bowel sounds, nontender, soft Back Exam: Present: other - Bandages removed. Granulating tissue but no abscess or cellulitis. No abscess to drain. No swelling or masses. No FB. Neurological Exam: Present: other - She has subjective left leg weakness since the surgery. No clear acute focal motor unilateral motor deficits. Skin Exam: Present: other - no cellulitis ED Progress - Results and Orders Patient's Lab Results:: I have reviewed the patient's lab results. - Vital Signs Patient's Vital Signs:: I have reviewed the patient's vital signs. Vital Signs: Vital Signs 01/22/17 01/22/17 15:53 16:51 Temperature 37 C Pulse Rate 79 71 Respiratory 20 16 Rate Blood Pressure 108/74 135/83 O2 Sat by Pulse 97 94 Oximetry - Progress/Reassessment Chief Complaint: General Assessment Progress Note-Subjective: 01/22/17 17:[address] Steward. IV Vanco already given. [facility] with Tuesday f/u Dr Steward on rounds and Tuesday f/u with her back surgeon for additional input. D/W Patient who is agreeable. Departure - Departure Clinical Impression: Visit for wound check Disposition: [facility] Condition: Stable Additional Instructions: Rest. Please institute Dr Steward's instructions. Call patient's back surgeon Tuesday for additional instructions. Antibiotics as have been ordered. Return for fever, increased drainage, redness or if your condition worsens or changes in any way.
[2017-01-22 18:23] VITALS: BP 137/79
== END 2017-01-22 18:08 ==
LOC: ER 15:18
DX: T81.4XXA Infection following a procedure, initial encounter (principal)

== ENCOUNTER 2017-03-07 23:07 | Inpatient (IN) | payer OTHER, MEDICARE ==
[2017-03-07 23:56] LABS: Mean Cell Volume 74.9 fl (78-100); Mean Corpuscular Hemoglobin 26.3 pg (27-31); Mean Corpuscular Hgb Conc 35.1 g/dl (32-36); Mean Platelet Volume 9.5 fl (6.0-9.5); Platelet Count 256 K/mm3 (150-450); Red Blood Count 2.47 M/mm3 (4.2-5.4); Red Cell Distribution Width 16.5 % (11.5-14.0)
[2017-03-07 23:57] LABS: Hemoglobin 6.5 gm/dL (12.5-16.0)
[2017-03-07 23:58] LABS: Hematocrit 18.5 % (37.0-47.0)
[2017-03-07 23:59] LABS: Total Cells Counted 100
--- NOTE | 2017-03-08 00:06 | ERNOTE ---
Medical Problem HPI - General Chief Complaint: General Assessment Time Seen by Provider: 03/07/17 23:25 Source: patient Exam Limitations: clinical condition - Immun/Allergies/Home Medications Immunizations: IMMUNIZATION HX Immunizations Up to Date Yes History of Influenza Vaccine Yes Hx Pneumococcal Vaccination Yes Allergies/Adverse Reactions: Allergies penicillin G Allergy (Intermediate, Verified 01/22/17 16:00) Hives Home Medications: HOME MEDICATIONS Albuterol Sulfate [Proventil Hfa] 6.7 gm IH QID 12/13/16 [Last Taken 12/12/16] Amlodipine Besylate 5 mg PO DAILY 12/13/16 [Last Taken 12/13/16] Aspirin/Dipyridamole [Aggrenox] 1 cap PO BID 12/13/16 [Last Taken 12/13/16] Atorvastatin Calcium [Lipitor] 10 mg PO DAILY 12/13/16 [Last Taken 12/13/16] Metoprolol Succinate [Toprol Xl] 50 mg PO DAILY 12/13/16 [Last Taken 12/13/16] Potassium Chloride [Klor-Con 10] 10 meq PO TID 12/13/16 [Last Taken 12/13/16] Quinapril HCl [Accupril] 10 mg PO DAILY 12/13/16 [Last Taken 12/13/16] glipiZIDE [Glipizide] 5 mg PO DAILY 12/13/16 [Last Taken 12/13/16] traZODone HCL [Trazodone HCl] 50 mg PO HS 12/13/16 [Last Taken 12/12/16] Amiodarone HCl [Cordarone] 200 mg PO DAILY #1 tablet 01/13/17 [Last Taken Unknown] Bimatoprost [Lumigan 0.01% Ophthalmic Solution] 2.5 ml OP HS 01/13/17 [Last Taken Unknown] Brimonidine Tartrate [Alphagan-P 0.1% Ophthalmic Solution] 5 ml OP TID 01/13/17 [Last Taken Unknown] Dorzolamide HCl/Timolol Maleat [Dorzolamide-Timolol Eye Drops] 10 ml OP BID 08/31 [Last Taken Unknown] FLUoxetine HCL [Prozac] 20 mg PO DAILY #30 cap 01/13/17 [Last Taken Unknown] Ropinirole HCl 5 mg PO DAILY 01/13/17 [Last Taken Unknown] Apixaban [Eliquis] 5 mg PO BID 03/07/17 [Last Taken Unknown] Aspirin 81 mg PO DAILY 03/07/17 [Last Taken Unknown] Sulfamethoxazole/Trimethoprim [Bactrim Ds] 1 tab PO BID 03/07/17 [Last Taken Unknown] Albuterol Sulfate [Albuterol Sulfate 2.5 MG/0.5ML] 1 vial IH Q4H PRN 03/08/17 [ Last Taken Unknown] - History of Present History Narrative: has been feeling bad for 3-4 days. Had UTI diagnosed by Dr. Bob 3 days ago. Hasn't felt well despite treatment Timing: constant, getting worse Severity: moderate Review of Systems - Review of Systems Constitutional: Present: recent illness, fatigue. Absent: fever, chills EYE: Present: no symptoms reported ENT: Present: no symptoms reported Respiratory: Present: cough. Absent: shortness of breath Cardiology: Absent: chest pain Gastrointestinal/Abdominal: Present: nausea. Absent: vomiting Genitourinary: Present: frequency Musculoskeletal: Present: no symptoms reported Skin: Present: no symptoms reported Neurological: Present: no symptoms reported - Patient's Past Medical History Patient History - Medical: Diabetes Type 2, Hypothyroidism, Obesity, Osteoarthritis, Other Patient History - Cardiac/Respiratory: Atrial Fibrillation, Asthma, CVA/Stroke, Hypertension, Hyperlipidemia, TIA Patient History - Cancer: No Hx of Cancer Patient History - Surgical Procedures: Cholecystectomy, Hysterectomy, Total Knee Replacement, T & A, Other Patient History - Other: None - Family History Mother Family History - Medical: , Diabetes Type 2 Family History - Cardiac/Respiratory: No pertinent hx Family History - Cancer: No pertinent family hx Father Family History - Medical: Family History - Cardiac/Respiratory: COPD Family History - Cancer: No pertinent family hx - Social History Living Situations: [facility] Abuse History: No History of abuse Psych History: No pertinent hx Smoking Status: Never smoker Alcohol Use: none Drug Use: none - Immunizations Immunizations Up to Date: Yes Hx Pneumococcal Vaccination: Yes History of Influenza Vaccine: Yes Physical Exam - Physical Exam General Appearance: Present: wd/wn, alert, mild distress, lethargic Head Exam: Present: normal inspection, no evidence of injury Eye Exam: Normal inspection: bilateral Ears, Nose, Throat: Present: normal ENT inspection Neck: Present: normal inspection, nontender Respiratory: Present: no respiratory distress, normal breath sounds, lungs clear Cardiovascular/Chest: Present: regular rate, rhythm, no murmur Gastrointestinal/Abdominal: Present: normal bowel sounds, nontender, nondistended, soft Extremity Exam: Present: normal inspection, normal range of motion, no edema Neurological Exam: Present: alert, oriented, normal mood/affect Skin Exam: Present: normal color, warm/dry Lymphatic Exam: Present: no adenopathy ED Progress - Results and Orders Patient's Lab Results:: I have reviewed the patient's lab results. Results and Orders: Laboratory Tests 03/07/17 03/07/17 03/08/17 23:50 23:50 00:00 WBC 28.0 H Hgb 6.5 L* D Hct 18.5 L* D Sodium 130 L Potassium 5.2 H Chloride 97 Carbon Dioxide 25.4 Anion Gap 12.8 BUN 23 Creatinine 1.19 Est GFR (Non-Af Amer) 55 L D BUN/Creatinine Ratio 19.3 Random Glucose 60 L Lactic Acid, Venous 1.1 Calcium 7.5 L Calcium Adj for Albumin 8.9 Total Bilirubin 0.4 AST 22 ALT 14 L Alkaline Phosphatase 71 Total Protein 5.7 L Albumin 1.9 L Urine Color Urine Appearance Urine pH Ur Specific [place] Urine Protein Urine Glucose (UA) Urine Ketones Urine Blood Urine Nitrate Urine Bilirubin Prot Sulfosalicylic Acd Urine Urobilinogen Ur Leukocyte Esterase Urine RBC Urine WBC Ur Epithelial Cells Urine Bacteria Hyaline Casts Urine Culture Comments 03/08/17 01:00 WBC Hgb Hct Sodium Potassium Chloride Carbon Dioxide Anion Gap BUN Creatinine Est GFR (Non-Af Amer) BUN/Creatinine Ratio Random Glucose Lactic Acid, Venous Calcium Calcium Adj for Albumin Total Bilirubin AST ALT Alkaline Phosphatase Total Protein Albumin Urine Color Yellow Urine Appearance Slightly cloudy Urine pH 7.5 Ur Specific [place] 1.015 Urine Protein 100 H Urine Glucose (UA) Negative Urine Ketones Negative Urine Blood 250 H Urine Nitrate Positive H Urine Bilirubin Negative Prot Sulfosalicylic Acd 3+ H Urine Urobilinogen 2.0 H Ur Leukocyte Esterase 25 H Urine RBC 10-25 H Urine WBC 0-5 Ur Epithelial Cells None seen Urine Bacteria 4+ H Hyaline Casts 0-5 H Urine Culture Comments Culture to follow - Vital Signs Patient's Vital Signs:: I have reviewed the patient's vital signs. Vital Signs: Vital Signs 03/07/17 03/07/17 23:11 23:58 Temperature 37.5 C Pulse Rate 85 84 Respiratory 18 18 Rate Blood Pressure 130/78 107/60 O2 Sat by Pulse 98 97 Oximetry - X-Ray X-Ray #1 X-Ray: chest Interpretation: Interp. by me - no infiltrate or effusion - Progress/Reassessment Chief Complaint: General Assessment Progress Note-Subjective: 03/08/17 06:35 Approx. 00:15 spoke with Lelo CERNA, hospitalist about admission. She agrees with admit. Departure - Departure Clinical Impression: Pyelonephritis Anemia Qualifiers: Iron deficiency anemia type: chronic blood loss Disposition: [facility] Condition: Fair
[2017-03-08 00:11] LABS: Albumin * 1.9 gm/dl (3.4-5.0); Anion Gap 12.8 mmol/L (6.8-13.8); BUN/Creatinine Ratio 19.3 (9.0-21.6); Bilirubin, Total 0.4 mg/dL (0.0-1.1); Ca. Corrected For Albumin 8.9 mg/dL (8.4-10.2); Calcium * 7.5 mg/dL (7.9-10.9); Carbon Dioxide 25.4 mmol/L (24-32.6); Potassium 5.2 mmol/L (3.4-4.6); Total Protein 5.7 gm/dL (6.2-8.2)
[2017-03-08 00:22] LABS: Band 3 % (0-2.0); Hypochromia 1+; Lymphocyte 2 % (20-51); Monocyte 6 % (0-9); Neutrophil 89 % (42-75); Neutrophil # 24.9 K/mm3 (1.3-6.0); Platelet Estimate Normal (NORMAL)
[2017-03-08 00:23] LABS: Microcytosis 2+
[2017-03-08] MEDS ORDERED: FUROSEMIDE 10 MG/ML VIAL IV PRN ×2 (01:44→01:46)
[2017-03-08] MEDS ORDERED: ACETAMINOPHEN 325 MG TABLET PO ONE (01:46)
[2017-03-08] MEDS ORDERED: diphenhydrAMINE HCL 50 MG/ML VIAL IV ONE (01:46)
--- NOTE | 2017-03-08 01:55 | HP ---
<Eric Yu - Last Filed: 03/08/17 07:43> Immunizations: IMMUNIZATION HX Immunizations Up to Date Yes History of Influenza Vaccine Yes Hx Pneumococcal Vaccination Yes Allergies/Adverse Reactions: Allergies Allergy/AdvReac Type Severity Reaction Status Date / Time penicillin G Allergy Intermediate Hives Verified 01/22/17 16:00 Home Medications: HOME MEDICATIONS Albuterol Sulfate [Proventil Hfa] 6.7 gm IH QID 12/13/16 [Last Taken 12/12/16] Amlodipine Besylate 5 mg PO DAILY 12/13/16 [Last Taken 12/13/16] Aspirin/Dipyridamole [Aggrenox] 1 cap PO BID 12/13/16 [Last Taken 12/13/16] Atorvastatin Calcium [Lipitor] 10 mg PO DAILY 12/13/16 [Last Taken 12/13/16] Metoprolol Succinate [Toprol Xl] 50 mg PO DAILY 12/13/16 [Last Taken 12/13/16] Potassium Chloride [Klor-Con 10] 10 meq PO TID 12/13/16 [Last Taken 12/13/16] Quinapril HCl [Accupril] 10 mg PO DAILY 12/13/16 [Last Taken 12/13/16] glipiZIDE [Glipizide] 5 mg PO DAILY 12/13/16 [Last Taken 12/13/16] traZODone HCL [Trazodone HCl] 50 mg PO HS 12/13/16 [Last Taken 12/12/16] Amiodarone HCl [Cordarone] 200 mg PO DAILY #1 tablet 01/13/17 [Last Taken Unknown] Bimatoprost [Lumigan 0.01% Ophthalmic Solution] 2.5 ml OP HS 01/13/17 [Last Taken Unknown] Brimonidine Tartrate [Alphagan-P 0.1% Ophthalmic Solution] 5 ml OP TID 01/13/17 [Last Taken Unknown] Dorzolamide HCl/Timolol Maleat [Dorzolamide-Timolol Eye Drops] 10 ml OP BID 08/31 [Last Taken Unknown] FLUoxetine HCL [Prozac] 20 mg PO DAILY #30 cap 01/13/17 [Last Taken Unknown] Ropinirole HCl 5 mg PO DAILY 01/13/17 [Last Taken Unknown] Apixaban [Eliquis] 5 mg PO BID 03/07/17 [Last Taken Unknown] Aspirin 81 mg PO DAILY 03/07/17 [Last Taken Unknown] Sulfamethoxazole/Trimethoprim [Bactrim Ds] 1 tab PO BID 03/07/17 [Last Taken Unknown] Albuterol Sulfate [Albuterol Sulfate 2.5 MG/0.5ML] 1 vial IH Q4H PRN 03/08/17 [ Last Taken Unknown] Exam - Exam Vital Signs: Vital Signs - Last Taken Temp 36.8 C 03/08/17 01:15 Pulse 78 03/08/17 02:17 Resp 20 03/08/17 01:15 BP 93/75 03/08/17 01:15 Pulse Ox 97 03/08/17 01:15 Diagnostic Studies: Abnormal Lab Results 03/08/17 Range/Units 01:00 Urine Protein 100 H (NEGATIVE) mg/dL Urine Blood 250 H (NEGATIVE) /ul Urine Nitrate Positive H (NEGATIVE) Prot Sulfosalicylic Acd 3+ H (0) mg/dL Urine Urobilinogen 2.0 H (NORMAL) EU/dl Ur Leukocyte Esterase 25 H (NEGATIVE) /ul Urine RBC 10-25 H (0-5) /hpf Urine Bacteria 4+ H (NONE) Hyaline Casts 0-5 H (NONE) /LPF Laboratory Results WBC 28.0 K/mm3 (4.0-10.5) H 03/07/17 23:50 RBC 2.47 M/mm3 (4.2-5.4) L 03/07/17 23:50 Hgb 6.5 gm/dL (12.5-16.0) L* D 03/07/17 23:50 Hct 18.5 % (37.0-47.0) L* D 03/07/17 23:50 MCV 74.9 fl (78-100) L 03/07/17 23:50 MCH 26.3 pg (27-31) L 03/07/17 23:50 MCHC 35.1 g/dl (32-36) 03/07/17 23:50 RDW 16.5 % (11.5-14.0) H 03/07/17 23:50 Plt Count 256 K/mm3 (150-450) 03/07/17 23:50 MPV 9.5 fl (6.0-9.5) 03/07/17 23:50 Immature Gran % (Auto) [employer] 03/07/17 23:50 Immature Gran # (Auto) [employer] Clerk 03/07/17 23:50 Neutrophils % [employer] Clerk 03/07/17 23:50 Neutrophils % (Manual) 89 % (42-75) H 03/07/17 23:50 Band Neuts % (Manual) 3 % (0-2.0) H 03/07/17 23:50 Lymphocytes % [employer] Clerk 03/07/17 23:50 Lymphocytes % (Manual) 2 % (20-51) L 03/07/17 23:50 Monocytes % [employer] Clerk 03/07/17 23:50 Monocytes % (Manual) 6 % (0-9) 03/07/17 23:50 Eosinophils % [employer] Clerk 03/07/17 23:50 Basophils % [employer] Clerk 03/07/17 23:50 Nucleated RBC % [employer] Clerk 03/07/17 23:50 Neutrophils # [employer] Clerk 03/07/17 23:50 Neutrophils # (Manual) 24.9 K/mm3 (1.3-6.0) H 03/07/17 23:50 Lymphocytes # [employer] Clerk 03/07/17 23:50 Lymphocytes # (Manual) 0.6 k/mm3 (1.5-3.5) L 03/07/17 23:50 Monocytes # [employer] Clerk 03/07/17 23:50 Monocytes # (Manual) 1.7 k/mm3 (0.0-1.0) H 03/07/17 23:50 Eosinophils # [employer] Clerk 03/07/17 23:50 Absolute Basophils [employer] 03/07/17 23:50 Platelet Estimate Normal (NORMAL) 03/07/17 23:50 Hypochromasia 1+ 03/07/17 23:50 Microcytosis 2+ 03/07/17 23:50 Sodium 130 mmol/L (132-142) L 03/07/17 23:50 Plasma Sodium 129 mmol/L (130-142) L 03/07/17 23:50 Potassium 5.2 mmol/L (3.4-4.6) H 03/07/17 23:50 Chloride 97 mmol/L (97-106) 03/07/17 23:50 Carbon Dioxide 25.4 mmol/L (24-32.6) 03/07/17 23:50 Anion Gap 12.8 mmol/L (6.8-13.8) 03/07/17 23:50 BUN 23 mg/dL (3-23) 03/07/17 23:50 Creatinine 1.19 mg/dL (0.4-1.4) 03/07/17 23:50 Est GFR (Non-Af Amer) 55 mL/min (60-130) L D 03/07/17 23:50 BUN/Creatinine Ratio 19.3 (9.0-21.6) 03/07/17 23:50 Random Glucose 60 mg/dL (70-110) L 03/07/17 23:50 Lactic Acid, Venous 1.1 mmol/L (0.4-1.9) 03/08/17 00:00 Calcium 7.5 mg/dL (7.9-10.9) L 03/07/17 23:50 Calcium Adj for Albumin 8.9 mg/dL (8.4-10.2) 03/07/17 23:50 Total Bilirubin 0.4 mg/dL (0.0-1.1) 03/07/17 23:50 AST 22 U/L (0-48) 03/07/17 23:50 ALT 14 U/L (19-67) L 03/07/17 23:50 Alkaline Phosphatase 71 U/L (50-170) 03/07/17 23:50 Total Protein 5.7 gm/dL (6.2-8.2) L 03/07/17 23:50 Albumin 1.9 gm/dl (3.4-5.0) L 03/07/17 23:50 Urine Color Yellow 03/08/17 01:00 Urine Appearance Slightly cloudy 03/08/17 01:00 Urine pH 7.5 pH (5.0-7.0) 03/08/17 01:00 Ur Specific [place] 1.015 SP.GR. (1.005-1.010) 03/08/17 01:00 Urine Protein 100 mg/dL (NEGATIVE) H 03/08/17 01:00 Urine Glucose (UA) Negative mg/dL (NEGATIVE) 03/08/17 01:00 Urine Ketones Negative mg/dL (NEGATIVE) 03/08/17 01:00 Urine Blood 250 /ul (NEGATIVE) H 03/08/17 01:00 Urine Nitrate Positive (NEGATIVE) H 03/08/17 01:00 Urine Bilirubin Negative mg/dl (NEGATIVE) 03/08/17 01:00 Prot Sulfosalicylic Acd 3+ mg/dL (0) H 03/08/17 01:00 Urine Urobilinogen 2.0 EU/dl (NORMAL) H 03/08/17 01:00 Ur Leukocyte Esterase 25 /ul (NEGATIVE) H 03/08/17 01:00 Urine RBC 10-25 /hpf (0-5) H 03/08/17 01:00 Urine WBC 0-5 /hpf (0-5) 03/08/17 01:00 Ur Epithelial Cells None seen /hpf (0-5) 03/08/17 01:00 Urine Bacteria 4+ (NONE) H 03/08/17 01:00 Hyaline Casts 0-5 /LPF (NONE) H 03/08/17 01:00 Urine Culture Comments Culture to follow 03/08/17 01:00 Blood Type O Positive 03/08/17 00:00 Antibody Screen Negative 03/08/17 00:00 Crossmatch See Detail 03/08/17 00:00 Assessment/Plan - Narrative Narrative: Patient is still dropping her blood sugars quite low, therefor not mentating well, unable to make her own decisions and won't be for the next fortyeight hours. POA states however, for two weeks patient has become tired of fighting. POA has given us fortyeight hours to see whether things will work out. If at that time, comfort care is still the option, we will then switch to comfort care. For now, tranfuse blood, and give antibiotics. Labs tomorrow. I directed our nurse practitioner in all her care for this patient. <Lelo Daigle - Last Filed: 03/08/17 09:48> Chief Complaint - Chief Complaint Date of Service: 03/08/17 Time of Service: 01:45 Chief Complaint: UTI - failed outpatient treatment, severe anemia. History of Present Illness: Maral is an 86 year old female patient of Dr Steward with a PMH of Afib (on eliquis), CVA, DM T2, HTN, HLD, hypothyroidism, asthma and OA who presented to the ER with c/o malaise, chills and intermittent fever x1 week. Patient currently resides at the [facility]. Patient is currently being treated for an UTI that grew E. Coli with Bactrim DS. Patient also has back wound on her lower back that is currently growing E. Coli, Kleb Pneumoniae and Proteus Mirabilis. Patient was previously treated with iv vancomycin in january 2017 as her back wound culture in january 2017 grew MRSA. the most recent back wound culture did not grow MRSA. ER eval revealed elevated wbc at 28.0 with 89% neutrophils and 3 bands, severe anemia with hgb at 6.5, lactic acid at 1.1, chest xray showed no acute cardiopulmonary abnormalities. UA c/w UTI with 4+ bacteria. Patient to be admitted with UTI, severe anemia and non-healing post surgical wound. of note, last echo 12/13/16 showed ef 45-50% with mod LVH, trace MR, mild TR, pulmonary htn with rvsp at 40, contrast injected negative for septal defect. - Patient's Past Medical History Patient History - Medical: Diabetes Type 2, Hypothyroidism, Obesity, Osteoarthritis, Other Patient History - Cardiac/Respiratory: Atrial Fibrillation, Asthma, CVA/Stroke, Hypertension, Hyperlipidemia, TIA Patient History - Cancer: No Hx of Cancer Patient History - Surgical Procedures: Cholecystectomy, Hysterectomy, Total Knee Replacement, T & A, Other Patient History - Other: None - Family History Mother Family History - Medical: , Diabetes Type 2 Family History - Cardiac/Respiratory: No pertinent hx Family History - Cancer: No pertinent family hx Father Family History - Medical: Family History - Cardiac/Respiratory: COPD Family History - Cancer: No pertinent family hx - Social History Living Situations: prison Abuse History: No History of abuse Psych History: No pertinent hx Smoking Status: Former smoker Have you smoked in the past 12 months: No Do you dip or chew tobacco: No Patient requests Smoking Cessation Consult: No Initiate information on Smoking Cessation: No Alcohol Use: none Drug Use: none - Immunizations Immunizations Up to Date: Yes Hx Pneumococcal Vaccination: Yes History of Influenza Vaccine: Yes Review Of Systems (GEN) - Review of Systems Generalized/Overall Review: Present: Chills, Fever, Malaise, Fatigue EENTM: Present: No Symptoms Reported Respiratory: Present: No Symptoms Reported Cardiac: Present: No Symptoms Reported Abdominal: Present: No Symptoms Reported Genitourinary: Present: No Symptoms Reported, Other - patient came from the [place] with trimble in place Musculoskeletal: Present: No Symptoms Reported Neurological: Present: No Symptoms Reported Skin: Present: No Symptoms Reported Endocrine: Present: No Symptoms Reported Misc: All systems neg except as marked Immunizations: IMMUNIZATION HX Immunizations Up to Date Yes History of Influenza Vaccine Yes Hx Pneumococcal Vaccination Yes Exam - Exam Vital Signs: Vital Signs - Last Taken Temp 36.8 C 03/08/17 01:15 Pulse 78 03/08/17 01:15 Resp 20 03/08/17 01:15 BP 93/75 03/08/17 01:15 Pulse Ox 97 03/08/17 01:15 Constitutional: Present: Alert, No distress, Elderly, Obese ENT Exam: Present: hard of hearing Eye Exam: bilateral eye: normal inspection Neck: Present: supple Breasts: Present: Exam deferred Respiratory: Present: no respiratory distress, decreased breath sounds Cardiovascular/Chest: Present: normal peripheral pulses, irregularly irregular Peripheral Pulses: carotid (R): 2+, carotid (L): 2+, dorsalis-pedis (R): 1+, dorsalis-pedis (L): 1+, radial (R): 2+, radial (L): 2+ Abdomen: Present: soft, nontender, nondistended /Rectal: Present: Exam deferred Extremity: Present: non-tender, lower extremity edema - trace lower extremity edema bilat Skin Exam: Present: normal color, warm/dry, no cyanosis Diagnostic Studies: Laboratory Results WBC 28.0 K/mm3 (4.0-10.5) H 03/07/17 23:50 RBC 2.47 M/mm3 (4.2-5.4) L 03/07/17 23:50 Hgb 6.5 gm/dL (12.5-16.0) L* D 03/07/17 23:50 Hct 18.5 % (37.0-47.0) L* D 03/07/17 23:50 MCV 74.9 fl (78-100) L 03/07/17 23:50 MCH 26.3 pg (27-31) L 03/07/17 23:50 MCHC 35.1 g/dl (32-36) 03/07/17 23:50 RDW 16.5 % (11.5-14.0) H 03/07/17 23:50 Plt Count 256 K/mm3 (150-450) 03/07/17 23:50 MPV 9.5 fl (6.0-9.5) 03/07/17 23:50 Immature Gran % (Auto) [employer] Clerk 03/07/17 23:50 Immature Gran # (Auto) [employer] Rental Clerk 03/07/17 23:50 Neutrophils % [employer] Rental Clerk 03/07/17 23:50 Neutrophils % (Manual) 89 % (42-75) H 03/07/17 23:50 Band Neuts % (Manual) 3 % (0-2.0) H 03/07/17 23:50 Lymphocytes % [employer] R[employer] Clerk 03/07/17 23:50 Lymphocytes % (Manual) 2 % (20-51) L 03/07/17 23:50 Monocytes % [employer] Clerk 03/07/17 23:50 Monocytes % (Manual) 6 % (0-9) 03/07/17 23:50 Eosinophils % [employer] R[employer] Clerk 03/07/17 23:50 Basophils % [employer]ental Clerk 03/07/17 23:50 Nucleated RBC % [employer] Rental Clerk 03/07/17 23:50 Neutrophils # [employer] Rental Clerk 03/07/17 23:50 Neutrophils # (Manual) 24.9 K/mm3 (1.3-6.0) H 03/07/17 23:50 Lymphocytes # [employer] Rental Clerk 03/07/17 23:50 Lymphocytes # (Manual) 0.6 k/mm3 (1.5-3.5) L 03/07/17 23:50 Monocytes # [employer] R[employer] Clerk 03/07/17 23:50 Monocytes # (Manual) 1.7 k/mm3 (0.0-1.0) H 03/07/17 23:50 Eosinophils # [employer] R[employer] Clerk 03/07/17 23:50 Absolute Basophils [employer] R[employer] Clerk 03/07/17 23:50 Platelet Estimate Normal (NORMAL) 03/07/17 23:50 Hypochromasia 1+ 03/07/17 23:50 Microcytosis 2+ 03/07/17 23:50 Sodium 130 mmol/L (132-142) L 03/07/17 23:50 Plasma Sodium 129 mmol/L (130-142) L 03/07/17 23:50 Potassium 5.2 mmol/L (3.4-4.6) H 03/07/17 23:50 Chloride 97 mmol/L (97-106) 03/07/17 23:50 Carbon Dioxide 25.4 mmol/L (24-32.6) 03/07/17 23:50 Anion Gap 12.8 mmol/L (6.8-13.8) 03/07/17 23:50 BUN 23 mg/dL (3-23) 03/07/17 23:50 Creatinine 1.19 mg/dL (0.4-1.4) 03/07/17 23:50 Est GFR (Non-Af Amer) 55 mL/min (60-130) L D 03/07/17 23:50 BUN/Creatinine Ratio 19.3 (9.0-21.6) 03/07/17 23:50 Random Glucose 60 mg/dL (70-110) L 03/07/17 23:50 Lactic Acid, Venous 1.1 mmol/L (0.4-1.9) 03/08/17 00:00 Calcium 7.5 mg/dL (7.9-10.9) L 03/07/17 23:50 Calcium Adj for Albumin 8.9 mg/dL (8.4-10.2) 03/07/17 23:50 Total Bilirubin 0.4 mg/dL (0.0-1.1) 03/07/17 23:50 AST 22 U/L (0-48) 03/07/17 23:50 ALT 14 U/L (19-67) L 03/07/17 23:50 Alkaline Phosphatase 71 U/L (50-170) 03/07/17 23:50 Total Protein 5.7 gm/dL (6.2-8.2) L 03/07/17 23:50 Albumin 1.9 gm/dl (3.4-5.0) L 03/07/17 23:50 Blood Type O Positive 03/08/17 00:00 Antibody Screen Negative 03/08/17 00:00 Crossmatch See Detail 03/08/17 00:00 Assessment/Plan - Narrative Narrative: Post Surgical Wound, Back - most recent culture from 03/04/17 grew E. Coli, Klebsiella Pneumoniae and Proteus Mirabilis - bacteria resistent to many abx - drug allergy to PCN (hives) and I cannot find that she has had rocephin iv in the hospital before - due to bacterial resistance and drug allergy, chose ertapenem based on culture and sensitivity - ertapenem is sensitive to all 3 bacteria - 1 gm iv daily - Day #1 - Low back wound was re-cultured on admission. - consult wound care for recommendations UTI - appears to be significant infection with +4 infection - failed outpatient treatment of Bactrim DS orally. - needing to use ertapenem to treat post surgical wound infection on back - this will also treat uti, as is sensitive per culture done 03/04/17. - repeat culture per trimble done on admission - culture pending. - check labs in the am. Severe anemia - 2 units PRBCs ordered to be transfused. - will premedicate with benadryl and tylenol - due to chronic diastolic and systolic CHF, will give 40 mg IV lasix after each unit of blood. - repeat h/h afib - on eliquis - monitor on telemetry as a precaution hyponatremia - likely multi-factorial, monitor labs Code status: DNR VTE: lovenox GI proph: protonix addendum: at 0450, called in to nigel pt by rn. pt unresponsive. has pulse. bp good. blood sugar 25. pt given 1 amp d50. recheck blood sugar at 0530 was 91. shortly after amp of D50 injected, pt became responsive and started yelling , stating that she wanted to sleep, wanted us to leave her alone and she wanted to . patient was very angry and kept yelling at staff. Patient continued to state that she wanted to when blood sugar was rechecked at 0530 and found to be 91. at 0630, blood sugar was rechecked and found to be 36 - another amp of D50 was given. Dr SCHOFIELD was notified at 6 am of patient condition and again at 0630. Further orders were given per Dr steward. - Assessment/Plan (1) Severe anemia Problem: Acute (2) Postoperative cellulitis of surgical wound Problem: Acute (3) Afib Problem: Chronic (4) Asthma Problem: Chronic (5) CHF (congestive heart failure) Problem: Chronic Qualifiers: Congestive heart failure type: combined Congestive heart failure chronicity : unspecified congestive heart failure chronicity Qualified Code(s): I50.40 - Unspecified combined systolic (congestive) and diastolic (congestive) heart failure (6) UTI (urinary tract infection) Problem: Acute Qualifiers: Urinary tract infection type: acute cystitis Hematuria presence: without hematuria Qualified Code(s): N30.00 - Acute cystitis without hematuria (7) Diabetes mellitus type 2 in obese Problem: Chronic (8) Hyperlipidemia Problem: Chronic Qualifiers: Hyperlipidemia type: mixed hyperlipidemia Qualified Code(s): E78.2 - Mixed hyperlipidemia (9) Hypertension Problem: Chronic Qualifiers: Hypertension type: essential hypertension Qualified Code(s): I10 - Essential (primary) hypertension (10) Weakness Problem: Chronic
[2017-03-08 02:12] LABS: Urine Bilirubin Negative (NEGATIVE); Urine Blood 250 /ul (NEGATIVE); Urine Ketone Negative (NEGATIVE); Urine Protein 100 mg/dL (NEGATIVE); Urine Specific Gravity 1.015 SP.GR. (1.005-1.010); Urine pH 7.5 pH (5.0-7.0)
[2017-03-08 02:14] LABS: Urine Appearance Slightly Cloudy; Urine Bacteria 4+; Urine Color Yellow; Urine Hyaline Cast 0-5 /LPF; Urine Nitrite Positive (NEGATIVE); Urine WBC 0-5 /hpf (0-5)
[2017-03-08] MEDS: SACCHAROMYCES BOULARDII 250 MG CAPSULE PO SCH ×3 (02:57→20:02)
[2017-03-08] MEDS ORDERED: ERTAPENEM SODIUM 1,000 MG in NORMAL SALINE 50 ML IV SCH (03:00)
[2017-03-08] MEDS ORDERED: DEXTROSE 50%-WATER 50 ML SYRG ONE (04:44)
[2017-03-08] MEDS ORDERED: DEXTROSE 50%-WATER 50 ML SYRG IV ONE ×3 (04:45→07:05)
[2017-03-08] MEDS ORDERED: LORazepam 2 MG/ML DISP.SYRIN IV ONE ×2 (05:27→07:10)
[2017-03-08] MEDS: INSULIN LISPRO 100 UNITS/ML VIAL SC SCH ×4 (06:35→20:04)
[2017-03-08] MEDS ORDERED: NORMAL SALINE 1,000 ML IV PRN (07:05)
[2017-03-08] MEDS ORDERED: FUROSEMIDE 10 MG/ML VIAL IV ONE (07:10)
[2017-03-08] MEDS ORDERED: GLUCAGON,HUMAN RECOMBINANT 1 MG VIAL SC ONE (07:20)
[2017-03-08] MEDS ORDERED: DEXTROSE 10 % IN WATER 1,000 ML IV SCH ×3 (07:30)
[2017-03-08] MEDS: diphenhydrAMINE HCL 50 MG/ML VIAL IV PRN ×2 (13:56→19:17)
[2017-03-08] MEDS: DEXTROSE 10 % IN WATER 1,000 ML IV SCH (14:40)
[2017-03-08] MEDS: ACETAMINOPHEN 325 MG TABLET PO PRN (20:02)
[2017-03-08 21:33] LABS: Hemoglobin 8.6 gm/dL (12.5-16.0)
[2017-03-09 06:01] LABS: Hematocrit 24.5 % (37.0-47.0); Hemoglobin 8.6 gm/dL (12.5-16.0); Mean Cell Volume 77.8 fl (78-100); Mean Corpuscular Hemoglobin 27.3 pg (27-31); Mean Corpuscular Hgb Conc 35.1 g/dl (32-36); Mean Platelet Volume 9.4 fl (6.0-9.5); Neutrophil # 17.8 K/mm3 (1.3-6.0); Neutrophil % 85.9 % (42-75.0); Platelet Count 246 K/mm3 (150-450); Red Blood Count 3.15 M/mm3 (4.2-5.4); Red Cell Distribution Width 17.6 % (11.5-14.0); White Blood Count 20.7 K/mm3 (4.0-10.5)
[2017-03-09 06:22] LABS: Albumin * 1.7 gm/dl (3.4-5.0); Anion Gap 11.3 mmol/L (6.8-13.8); BUN/Creatinine Ratio 18.1 (9.0-21.6); Bilirubin, Total 0.6 mg/dL (0.0-1.1); Ca. Corrected For Albumin 8.9 mg/dL (8.4-10.2); Calcium * 7.4 mg/dL (7.9-10.9); Carbon Dioxide 26.1 mmol/L (24-32.6); Potassium 4.4 mmol/L (3.4-4.6); Total Protein 5.6 gm/dL (6.2-8.2)
[2017-03-09] MEDS ORDERED: ALBUTEROL SULFATE 2.5 MG/3 ML VIAL.NEB IH PRN (07:23)
[2017-03-09] MEDS: INSULIN LISPRO 100 UNITS/ML VIAL SC SCH ×4 (08:03→20:14)
[2017-03-09] MEDS ORDERED: VANCOMYCIN HCL 1 GM in DEXTROSE 5 % IN WATER 250 ML IV ONE ×4 (08:56→09:00)
[2017-03-09] MEDS ORDERED: VANCOMYCIN HCL 1 GM in DEXTROSE 5 % IN WATER 250 ML IV SCH ×2 (09:00)
[2017-03-09] MEDS ORDERED: amLODIPine BESYLATE 5 MG TABLET PO SCH (09:00)
[2017-03-09] MEDS ORDERED: glipiZIDE 5 MG TABLET PO SCH (09:00)
[2017-03-09] MEDS: DEXTROSE 10 % IN WATER 1,000 ML IV SCH ×3 (09:23→20:08)
[2017-03-09] MEDS: ENALAPRIL MALEATE 5 MG TABLET PO SCH (09:29)
[2017-03-09] MEDS: rOPINIRole HCL 1 MG TABLET PO SCH (09:29)
[2017-03-09] MEDS: METOPROLOL SUCCINATE 50 MG TABLET.SA PO SCH (09:29)
[2017-03-09] MEDS: FLUoxetine HCL 20 MG CAPSULE PO SCH (09:30)
[2017-03-09] MEDS: APIXABAN 2.5 MG TABLET PO SCH ×2 (09:30→20:10)
[2017-03-09] MEDS: TIMOLOL MALEATE/DORZOLAM HCL 100 DROP BTL OP SCH ×2 (09:30→20:10)
[2017-03-09] MEDS: ASPIRIN 81 MG TAB.CHEW PO SCH (09:31)
[2017-03-09] MEDS: ASPIRIN PO SCH ×2 (09:31→20:09)
[2017-03-09] MEDS: POTASSIUM CHLORIDE 10 MEQ TABLET.SA PO SCH ×3 (09:31→17:47)
[2017-03-09] MEDS: AMIODARONE HCL 200 MG TABLET PO SCH (09:31)
[2017-03-09] MEDS: DIPYRIDAMOLE PO SCH ×2 (09:31→20:09)
[2017-03-09] MEDS: BRIMONIDINE TARTRATE 50 DROP BTL OP SCH ×3 (09:31→17:47)
[2017-03-09] MEDS: MUPIROCIN 22 APPL TUBE TP SCH ×2 (09:32→20:09)
[2017-03-09] MEDS: CHLORHEX GL/ISOPROPYL ALCOHOL 960 APPL BTL TP SCH ×2 (09:46→20:11)
[2017-03-09] MEDS: SACCHAROMYCES BOULARDII 250 MG CAPSULE PO SCH ×2 (09:47→20:11)
[2017-03-09] MEDS: ACETAMINOPHEN 325 MG TABLET PO PRN (11:42)
--- NOTE | 2017-03-09 14:05 | PN ---
Subjective - Date and Time Seen Date: 03/09/17 Time: 07:00 Subjective Narrative: Feels better. No longer wishes to . Wants to know what happened. Objective - Review of Systems Generalized/Overall Review: Reports: Fever EENTM: Reports: No Symptoms Reported Respiratory: Reports: No Symptoms Reported Cardiac: Reports: No Symptoms Reported Abdominal: Reports: No Symptoms Reported Genitourinary Symptoms: Reports: No Symptoms Reported Musculoskeletal Complaints: Reports: No Symptoms Reported Neurological: Reports: No Symptoms Reported Skin: Reports: No Symptoms Reported Endocrine: Reports: No Symptoms Reported Misc: All systems neg except as marked - Vitals Vitals: Last Vital Signs Temp 37.8 C H 03/09/17 12:00 Pulse 94 03/09/17 12:00 Resp 18 03/09/17 12:00 BP 124/68 03/09/17 12:00 Pulse Ox 97 03/09/17 12:00 - Abnormal Lab Findings Abnormal Lab Findings: Abnormal Lab Results 03/08/17 03/08/17 03/09/17 Range/Units 21:32 21:32 05:56 WBC 20.7 H D (4.0-10.5) K/mm3 RBC 3.15 L (4.2-5.4) M/mm3 Hgb 8.6 L 8.6 L (12.5-16.0) gm/dL Hct 24.0 L D 24.5 L (37.0-47.0) % MCV 77.8 L (78-100) fl RDW 17.6 H (11.5-14.0) % Immature Gran % (Auto) 1.70 H (0.001-0.429) % Immature Gran # (Auto) 0.35 H (0.000-0.0310) K/mm3 Neutrophils % 85.9 H (42-75.0) % Lymphocytes % 4.6 L (20-51) % Neutrophils # 17.8 H (1.3-6.0) K/mm3 Lymphocytes # 1.0 L (1.5-3.5) k/mm3 Monocytes # 1.5 H (0.0-1.0) k/mm3 Sodium (132-142) mmol/L Calcium (7.9-10.9) mg/dL ALT (19-67) U/L B-Natriuretic Peptide 7014 H (5-550) pg/mL Total Protein (6.2-8.2) gm/dL Albumin (3.4-5.0) gm/dl 03/09/17 Range/Units 05:56 WBC (4.0-10.5) K/mm3 RBC (4.2-5.4) M/mm3 Hgb (12.5-16.0) gm/dL Hct (37.0-47.0) % MCV (78-100) fl RDW (11.5-14.0) % Immature Gran % (Auto) (0.001-0.429) % Immature Gran # (Auto) (0.000-0.0310) K/mm3 Neutrophils % (42-75.0) % Lymphocytes % (20-51) % Neutrophils # (1.3-6.0) K/mm3 Lymphocytes # (1.5-3.5) k/mm3 Monocytes # (0.0-1.0) k/mm3 Sodium 130 L (132-142) mmol/L Calcium 7.4 L (7.9-10.9) mg/dL ALT 17 L (19-67) U/L B-Natriuretic Peptide (5-550) pg/mL Total Protein 5.6 L (6.2-8.2) gm/dL Albumin 1.7 L (3.4-5.0) gm/dl - Exam Constitutional: Present: Alert, Oriented x3, Cooperative, Well developed, No distress, Obese ENT Exam: Present: normal ENT inspection, hearing grossly normal Neck: Present: normal inspection Respiratory: Present: lungs clear, no respiratory distress Cardiovascular/Chest: Present: regular rate, rhythm, no murmur Abdomen: Present: Normal bowel sounds, soft, nontender, nondistended, no rebound tenderness, no hepatospenomegaly, obese Extremity: Present: pedal edema Skin Exam: Present: normal color, warm/dry, no cyanosis, other - pressure sore Neurologic: Present: alert, oriented x 3 Appearance: Present: appropriate appearance, appropriate insight, neat, no memory impairment Eye contact: Present: cooperative, good eye contact, normal speech Thoughts: Present: normal thought pattern Cauti Physician Documentation - Urinary Catheter Management Urethral (Trimble) Date of Removal: 03/09/17 Time of Removal: 09:30 Assessment/Plan Plan Narrative: DC trimble. Adjust meds. Add vancomycin. Wound healing. Up and around. PT OT. 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
[2017-03-09] MEDS: ALBUTEROL SULFATE 2.5 MG/3 ML VIAL.NEB IH SCH ×2 (18:13→18:41)
[2017-03-09] MEDS: ROSUVASTATIN CALCIUM 10 MG TABLET PO SCH (20:10)
[2017-03-09] MEDS: traZODone HCL 50 MG TABLET PO SCH (20:10)
[2017-03-09] MEDS: BIMATOPROST 25 DROP BTL OP SCH (20:11)
[2017-03-10] MEDS: DEXTROSE 10 % IN WATER 1,000 ML IV SCH (04:14)
[2017-03-10 05:56] LABS: Hemoglobin 8.4 gm/dL (12.5-16.0); Mean Cell Volume 78.2 fl (78-100); Mean Corpuscular Hemoglobin 27.4 pg (27-31); Mean Platelet Volume 9.3 fl (6.0-9.5); Platelet Count 264 K/mm3 (150-450); Red Blood Count 3.07 M/mm3 (4.2-5.4); Red Cell Distribution Width 18.4 % (11.5-14.0); White Blood Count 22.3 K/mm3 (4.0-10.5)
[2017-03-10 06:08] LABS: Total Cells Counted 100
[2017-03-10 06:15] LABS: Anion Gap 9.6 mmol/L (6.8-13.8); BUN/Creatinine Ratio 17.2 (9.0-21.6); Calcium * 7.5 mg/dL (7.9-10.9); Carbon Dioxide 27.2 mmol/L (24-32.6); Estimated Creat Clear 30.8; Potassium 4.8 mmol/L (3.4-4.6)
[2017-03-10 06:17] LABS: Atypical (Reactive) Lymph 1 % (0-2); Basophilic Stippling 1+; Eosinophil 2 % (0-3); Hypochromia Trace; Immature Granulocyte 3 (0-1); Lymphocyte 4 % (20-51); Macrocytosis 1+; Monocyte 2 % (0-9); Neutrophil 88 % (42-75); Neutrophil # 19.6 K/mm3 (1.3-6.0)
[2017-03-10 06:18] LABS: Platelet Estimate Normal (NORMAL)
[2017-03-10] MEDS ORDERED: DEXTROSE 5%-NORMAL SALINE 1,000 ML IV PRN (06:37)
[2017-03-10] MEDS: INSULIN LISPRO 100 UNITS/ML VIAL SC SCH ×3 (07:07→16:54)
--- NOTE | 2017-03-10 07:15 | PN ---
Subjective - Date and Time Seen Date: 03/10/17 Time: 06:40 Subjective Narrative: Feels better. No longer wishes to . Wants to go to bathroom. Wasn't moving much at half-way. Sugars high. Was seen by wound care yesterday. Objective - Review of Systems Generalized/Overall Review: Reports: Weakness, Malaise EENTM: Reports: No Symptoms Reported Respiratory: Reports: No Symptoms Reported Cardiac: Reports: No Symptoms Reported Abdominal: Reports: No Symptoms Reported Genitourinary Symptoms: Reports: No Symptoms Reported Musculoskeletal Complaints: Reports: No Symptoms Reported Neurological: Reports: No Symptoms Reported Skin: Reports: No Symptoms Reported Endocrine: Reports: No Symptoms Reported - Vitals Vitals: Last Vital Signs Selected Entries 03/09/17 03/10/17 06:00 03:00 Temperature 37.0 C 36.6 C Temperature Oral Oral Source Pulse Rate 113 H 93 Respiratory 18 20 Rate Blood Pressure 115/65 128/62 Blood Pressure Supine Position O2 Sat by Pulse 96 95 Oximetry Oxygen Delivery Room Air Room Air Method - Abnormal Lab Findings Abnormal Lab Findings: Abnormal Lab Results 03/10/17 03/10/17 Range/Units 05:49 05:49 WBC 22.3 H (4.0-10.5) K/mm3 RBC 3.07 L (4.2-5.4) M/mm3 Hgb 8.4 L (12.5-16.0) gm/dL Hct 24.0 L (37.0-47.0) % RDW 18.4 H (11.5-14.0) % Neutrophils % (Manual) 88 H (42-75) % Lymphocytes % (Manual) 4 L (20-51) % Immature Granulocytes 3 H (0-1) Neutrophils # (Manual) 19.6 H (1.3-6.0) K/mm3 Lymphocytes # (Manual) 0.9 L (1.5-3.5) k/mm3 Sodium 127 L (132-142) mmol/L Potassium 4.8 H (3.4-4.6) mmol/L Chloride 95 L (97-106) mmol/L Random Glucose 275 H D (70-110) mg/dL Calcium 7.5 L (7.9-10.9) mg/dL - Exam Constitutional: Present: Alert, Oriented x3, Cooperative, Well developed, No distress, Obese ENT Exam: Present: normal ENT inspection, hearing grossly normal Neck: Present: normal inspection Respiratory: Present: normal breath sounds, no respiratory distress Cardiovascular/Chest: Present: regular rate, rhythm, no murmur Abdomen: Present: Normal bowel sounds, soft, nontender, nondistended, no rebound tenderness, no hepatospenomegaly, no masses, obese Extremity: Present: normal inspection, no pedal edema Skin Exam: Present: normal color, warm/dry, no cyanosis, other - pressure sores Neurologic: Present: alert, oriented x 3 Appearance: Present: appropriate appearance, neat Eye contact: Present: cooperative, good eye contact, normal speech Thoughts: Present: normal thought pattern Cauti Physician Documentation - Urinary Catheter Management Urethral ([place]) Date of Removal: 03/09/17 Time of Removal: 09:30 Assessment/Plan Plan Narrative: adjust iv fluids. await final culture reports. labs. iv antibiotics. try stand ease. 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
[2017-03-10] MEDS: NORMAL SALINE 1,000 ML IV PRN ×2 (07:39→23:31)
[2017-03-10] MEDS: rOPINIRole HCL 1 MG TABLET PO SCH (09:47)
[2017-03-10] MEDS: ENALAPRIL MALEATE 5 MG TABLET PO SCH (09:48)
[2017-03-10] MEDS: FLUoxetine HCL 20 MG CAPSULE PO SCH (09:51)
[2017-03-10] MEDS: METOPROLOL SUCCINATE 50 MG TABLET.SA PO SCH (09:51)
[2017-03-10] MEDS: POTASSIUM CHLORIDE 10 MEQ TABLET.SA PO SCH (09:51)
[2017-03-10] MEDS: ASPIRIN 81 MG TAB.CHEW PO SCH (09:52)
[2017-03-10] MEDS: BRIMONIDINE TARTRATE 50 DROP BTL OP SCH ×3 (09:52→16:56)
[2017-03-10] MEDS: APIXABAN 2.5 MG TABLET PO SCH ×2 (09:52→20:06)
[2017-03-10] MEDS: DIPYRIDAMOLE PO SCH ×2 (09:52→20:05)
[2017-03-10] MEDS: ASPIRIN PO SCH ×2 (09:52→20:05)
[2017-03-10] MEDS: TIMOLOL MALEATE/DORZOLAM HCL 100 DROP BTL OP SCH ×2 (09:52→20:06)
[2017-03-10] MEDS: MUPIROCIN 22 APPL TUBE TP SCH ×2 (09:52→20:06)
[2017-03-10] MEDS: AMIODARONE HCL 200 MG TABLET PO SCH (09:52)
[2017-03-10] MEDS: SACCHAROMYCES BOULARDII 250 MG CAPSULE PO SCH ×2 (09:52→20:06)
[2017-03-10] MEDS: VANCOMYCIN HCL 1 GM in DEXTROSE 5 % IN WATER 250 ML IV SCH ×2 (09:53)
[2017-03-10] MEDS: CHLORHEX GL/ISOPROPYL ALCOHOL 960 APPL BTL TP SCH ×2 (09:53→20:07)
[2017-03-10] MEDS: ALBUTEROL SULFATE 2.5 MG/3 ML VIAL.NEB IH SCH ×4 (10:04→19:20)
[2017-03-10] MEDS ORDERED: INSULIN LISPRO 100 UNITS/ML VIAL SC STA (12:01)
[2017-03-10] MEDS: CEFTAZIDIME 1 GM in DEXTROSE 5 % IN WATER 100 ML IV SCH ×2 (17:00)
[2017-03-10] MEDS: ROSUVASTATIN CALCIUM 10 MG TABLET PO SCH (20:06)
[2017-03-10] MEDS: traZODone HCL 50 MG TABLET PO SCH (20:07)
[2017-03-10] MEDS: BIMATOPROST 25 DROP BTL OP SCH (20:07)
[2017-03-11] MEDS: CEFTAZIDIME 1 GM in DEXTROSE 5 % IN WATER 100 ML IV SCH ×4 (05:04→18:48)
[2017-03-11 05:46] LABS: Hemoglobin 8.3 gm/dL (12.5-16.0); Mean Cell Volume 78.4 fl (78-100); Mean Corpuscular Hemoglobin 27.2 pg (27-31); Mean Corpuscular Hgb Conc 34.7 g/dl (32-36); Mean Platelet Volume 8.8 fl (6.0-9.5); Neutrophil # 18.2 K/mm3 (1.3-6.0); Neutrophil % 85.8 % (42-75.0); Platelet Count 274 K/mm3 (150-450); Red Blood Count 3.05 M/mm3 (4.2-5.4); White Blood Count 21.2 K/mm3 (4.0-10.5)
[2017-03-11 05:53] LABS: Hematocrit 23.9 % (37.0-47.0)
[2017-03-11 06:02] LABS: BUN/Creatinine Ratio 17.2 (9.0-21.6); Calcium * 7.6 mg/dL (7.9-10.9); Carbon Dioxide 26.2 mmol/L (24-32.6); Potassium 5.2 mmol/L (3.4-4.6)
[2017-03-11] MEDS: ALBUTEROL SULFATE 2.5 MG/3 ML VIAL.NEB IH SCH ×4 (06:16→18:15)
[2017-03-11] MEDS: INSULIN LISPRO 100 UNITS/ML VIAL SC SCH ×3 (07:11→16:43)
[2017-03-11] MEDS: glipiZIDE 2.5 MG TAB.SR.24H PO SCH (07:18)
[2017-03-11] MEDS: DIPYRIDAMOLE PO SCH ×2 (08:46→21:58)
[2017-03-11] MEDS: BRIMONIDINE TARTRATE 50 DROP BTL OP SCH ×3 (08:46→16:43)
[2017-03-11] MEDS: ASPIRIN 81 MG TAB.CHEW PO SCH (08:46)
[2017-03-11] MEDS: ASPIRIN PO SCH ×2 (08:46→21:58)
[2017-03-11] MEDS: AMIODARONE HCL 200 MG TABLET PO SCH (08:47)
[2017-03-11] MEDS: MUPIROCIN 22 APPL TUBE TP SCH ×2 (08:47→22:00)
[2017-03-11] MEDS: TIMOLOL MALEATE/DORZOLAM HCL 100 DROP BTL OP SCH ×2 (08:48→22:00)
[2017-03-11] MEDS: APIXABAN 2.5 MG TABLET PO SCH ×2 (08:48→21:59)
[2017-03-11] MEDS: rOPINIRole HCL 1 MG TABLET PO SCH (08:48)
[2017-03-11] MEDS: SACCHAROMYCES BOULARDII 250 MG CAPSULE PO SCH ×2 (08:48→21:58)
[2017-03-11] MEDS: FLUoxetine HCL 20 MG CAPSULE PO SCH (08:48)
[2017-03-11] MEDS: CHLORHEX GL/ISOPROPYL ALCOHOL 960 APPL BTL TP SCH ×2 (08:48→21:58)
[2017-03-11] MEDS: METOPROLOL SUCCINATE 50 MG TABLET.SA PO SCH (08:48)
[2017-03-11] MEDS: POTASSIUM CHLORIDE 10 MEQ TABLET.SA PO SCH (08:48)
[2017-03-11] MEDS: VANCOMYCIN HCL 1 GM in DEXTROSE 5 % IN WATER 250 ML IV SCH ×2 (08:49)
[2017-03-11] MEDS: ENALAPRIL MALEATE 5 MG TABLET PO SCH (08:49)
--- NOTE | 2017-03-11 10:45 | PN ---
Subjective - Date and Time Seen Date: 03/11/17 Time: 07:30 Subjective Narrative: Feels better. Sugars better. Up in chair today. Have adjusted antibiotics for better coverage. Objective - Review of Systems Generalized/Overall Review: Reports: Weakness, Malaise EENTM: Reports: No Symptoms Reported Respiratory: Reports: No Symptoms Reported Cardiac: Reports: No Symptoms Reported Abdominal: Reports: No Symptoms Reported Genitourinary Symptoms: Reports: No Symptoms Reported Musculoskeletal Complaints: Reports: No Symptoms Reported Neurological: Reports: No Symptoms Reported Skin: Reports: No Symptoms Reported Endocrine: Reports: No Symptoms Reported Misc: All systems neg except as marked - Vitals Vitals: Last Vital Signs Selected Entries 03/11/17 10:26 Temperature 37.0 C Pulse Rate 70 Respiratory 16 Rate Respiratory Normal Depth Blood Pressure 105/52 O2 Sat by Pulse 93 Oximetry Oxygen Delivery Room Air Method - Abnormal Lab Findings Abnormal Lab Findings: Abnormal Lab Results 03/11/17 03/11/17 Range/Units 05:43 05:43 WBC 21.2 H (4.0-10.5) K/mm3 RBC 3.05 L (4.2-5.4) M/mm3 Hgb 8.3 L (12.5-16.0) gm/dL Hct 23.9 L* (37.0-47.0) % RDW 19.0 H (11.5-14.0) % Immature Gran % (Auto) 3.30 H (0.001-0.429) % Immature Gran # (Auto) 0.70 H (0.000-0.0310) K/mm3 Neutrophils % 85.8 H (42-75.0) % Lymphocytes % 3.3 L (20-51) % Neutrophils # 18.2 H (1.3-6.0) K/mm3 Lymphocytes # 0.7 L (1.5-3.5) k/mm3 Monocytes # 1.5 H (0.0-1.0) k/mm3 Sodium 129 L (132-142) mmol/L Potassium 5.2 H (3.4-4.6) mmol/L Random Glucose 181 H D (70-110) mg/dL Calcium 7.6 L (7.9-10.9) mg/dL - Exam Constitutional: Present: Alert, Oriented x3, Cooperative, Well developed, No distress, Morbidly obese ENT Exam: Present: normal ENT inspection Neck: Present: normal inspection Respiratory: Present: lungs clear, no respiratory distress Cardiovascular/Chest: Present: regular rate, rhythm, no murmur Abdomen: Present: Normal bowel sounds, soft, nontender, nondistended, no rebound tenderness, no hepatospenomegaly, no masses, obese Extremity: Present: pedal edema Skin Exam: Present: normal color, warm/dry, no cyanosis, other - pressure sores Neurologic: Present: alert, oriented x 3 Appearance: Present: appropriate appearance, neat Eye contact: Present: cooperative, good eye contact, normal speech Cauti Physician Documentation - Urinary Catheter Management Urethral (Roblero) Date of Removal: 03/09/17 Time of Removal: 09:30 Assessment/Plan Plan Narrative: Continue current. Labs in AM. 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
[2017-03-11] MEDS: NORMAL SALINE 1,000 ML IV PRN (18:52)
[2017-03-11] MEDS: traZODone HCL 50 MG TABLET PO SCH (21:58)
[2017-03-11] MEDS: ROSUVASTATIN CALCIUM 10 MG TABLET PO SCH (21:59)
[2017-03-11] MEDS: BIMATOPROST 25 DROP BTL OP SCH (22:00)
[2017-03-12] MEDS: CEFTAZIDIME 1 GM in DEXTROSE 5 % IN WATER 100 ML IV SCH ×4 (05:39→17:12)
[2017-03-12] MEDS: ALBUTEROL SULFATE 2.5 MG/3 ML VIAL.NEB IH SCH ×4 (06:05→19:55)
[2017-03-12] MEDS: glipiZIDE 2.5 MG TAB.SR.24H PO SCH (07:27)
[2017-03-12] MEDS: INSULIN LISPRO 100 UNITS/ML VIAL SC SCH ×3 (07:28→17:13)
[2017-03-12] MEDS ORDERED: VANCOMYCIN HCL LEVEL XX ONE (08:30)
[2017-03-12] MEDS: MUPIROCIN 22 APPL TUBE TP SCH ×2 (08:41→20:35)
[2017-03-12] MEDS: AMIODARONE HCL 200 MG TABLET PO SCH (08:41)
[2017-03-12] MEDS: BRIMONIDINE TARTRATE 50 DROP BTL OP SCH ×3 (08:41→17:12)
[2017-03-12] MEDS: ASPIRIN 81 MG TAB.CHEW PO SCH (08:41)
[2017-03-12] MEDS: CHLORHEX GL/ISOPROPYL ALCOHOL 960 APPL BTL TP SCH ×2 (08:42→20:38)
[2017-03-12] MEDS: APIXABAN 2.5 MG TABLET PO SCH ×2 (08:42→20:36)
[2017-03-12] MEDS: SACCHAROMYCES BOULARDII 250 MG CAPSULE PO SCH ×2 (08:42→20:36)
[2017-03-12] MEDS: POTASSIUM CHLORIDE 10 MEQ TABLET.SA PO SCH (08:42)
[2017-03-12] MEDS: FLUoxetine HCL 20 MG CAPSULE PO SCH (08:42)
[2017-03-12] MEDS: TIMOLOL MALEATE/DORZOLAM HCL 100 DROP BTL OP SCH ×2 (08:42→20:35)
[2017-03-12] MEDS: rOPINIRole HCL 1 MG TABLET PO SCH (08:43)
[2017-03-12] MEDS: DIPYRIDAMOLE PO SCH ×2 (08:44→20:37)
[2017-03-12] MEDS: ASPIRIN PO SCH ×2 (08:44→20:37)
--- NOTE | 2017-03-12 09:08 | PN ---
Subjective - Date and Time Seen Date: 03/12/17 Time: 09:06 Subjective Narrative: She says her appetite is getting better and overall feels she is getting better. Objective - Review of Systems Generalized/Overall Review: Reports: Weakness. Denies: Chills, Fever EENTM: Reports: No Symptoms Reported Respiratory: Denies: Cough, Shortness of Breath Cardiac: Denies: Chest Pain, Edema, Palpitations Abdominal: Denies: Nausea Genitourinary Symptoms: Denies: Urgency, Frequency Musculoskeletal Complaints: Reports: Back Pain - Vitals Vitals: Last Vital Signs Temp 37.5 C 03/12/17 06:57 Pulse 93 03/12/17 06:57 Resp 18 03/12/17 06:57 BP 98/74 03/12/17 06:57 Pulse Ox 96 03/12/17 06:57 - Exam Constitutional: Present: Alert, Oriented x3, Cooperative ENT Exam: Present: hearing grossly normal Neck: Present: supple Respiratory: Present: chest non-tender, lungs clear, normal breath sounds, no respiratory distress Cardiovascular/Chest: Present: regular rate, rhythm, no JVD, no murmur Abdomen: Present: Normal bowel sounds, soft, nontender, nondistended Extremity: Present: no calf tenderness, pedal edema Cauti Physician Documentation - Urinary Catheter Management Urethral (Roblero) Date of Insertion: 03/12/17 Time of Insertion: 00:50 Date of Removal: 03/09/17 Time of Removal: 09:30 Assessment/Plan - Problems/Diagnosis (1) Hypoglycemia Problem: Resolved Narrative: BS 212. will increase SSI coverage to moderate dose. consider starting Lantus. 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
[2017-03-12 09:47] LABS: Hemoglobin 8.6 gm/dL (12.5-16.0); Mean Corpuscular Hemoglobin 28.1 pg (27-31); Mean Corpuscular Hgb Conc 33.1 g/dl (32-36); Mean Platelet Volume 9.2 fl (6.0-9.5); Platelet Count 227 K/mm3 (150-450); Red Blood Count 3.06 M/mm3 (4.2-5.4); Red Cell Distribution Width 20.6 % (11.5-14.0); White Blood Count 18.5 K/mm3 (4.0-10.5)
[2017-03-12 10:10] LABS: Anion Gap 13.5 mmol/L (6.8-13.8); BUN/Creatinine Ratio 21.8 (9.0-21.6); Calcium * 7.8 mg/dL (7.9-10.9); Carbon Dioxide 20.9 mmol/L (24-32.6); Estimated Creat Clear 39.1; Potassium 5.4 mmol/L (3.4-4.6)
[2017-03-12] MEDS: METOPROLOL SUCCINATE 50 MG TABLET.SA PO SCH (10:18)
[2017-03-12] MEDS: ENALAPRIL MALEATE 5 MG TABLET PO SCH (10:18)
[2017-03-12 10:37] LABS: Total Cells Counted 100
[2017-03-12 10:40] LABS: Band 3 % (0-2.0); Immature Granulocyte 1 (0-1); Lymphocyte 2 % (20-51); Monocyte 2 % (0-9); Neutrophil 92 % (42-75)
[2017-03-12 10:43] LABS: Anisocytosis 2+; Hypochromia 2+; Platelet Estimate Normal (NORMAL); Poikilocytosis 1+; Target Cells Trace
[2017-03-12] MEDS: VANCOMYCIN HCL 1.5 GM in DEXTROSE 5 % IN WATER 500 ML IV SCH ×2 (11:24)
[2017-03-12] MEDS: VANCOMYCIN HCL 1 GM in DEXTROSE 5 % IN WATER 250 ML IV SCH ×2 (11:56)
[2017-03-12] MEDS: ACETAMINOPHEN 325 MG TABLET PO PRN (12:22)
[2017-03-12] MEDS: ROSUVASTATIN CALCIUM 10 MG TABLET PO SCH (20:36)
[2017-03-12] MEDS: traZODone HCL 50 MG TABLET PO SCH (20:38)
[2017-03-12] MEDS: BIMATOPROST 25 DROP BTL OP SCH (20:39)
[2017-03-12] MEDS: NORMAL SALINE 1,000 ML IV PRN (21:34)
[2017-03-13] MEDS: CEFTAZIDIME 1 GM in DEXTROSE 5 % IN WATER 100 ML IV SCH ×4 (05:37→17:49)
[2017-03-13] MEDS: ALBUTEROL SULFATE 2.5 MG/3 ML VIAL.NEB IH SCH ×2 (06:06→10:35)
[2017-03-13 06:07] LABS: Hematocrit 24.5 % (37.0-47.0); Hemoglobin 8.5 gm/dL (12.5-16.0); Mean Cell Volume 78.5 fl (78-100); Mean Corpuscular Hemoglobin 27.2 pg (27-31); Mean Corpuscular Hgb Conc 34.7 g/dl (32-36); Mean Platelet Volume 8.8 fl (6.0-9.5); Platelet Count 311 K/mm3 (150-450); Red Blood Count 3.12 M/mm3 (4.2-5.4); Red Cell Distribution Width 18.7 % (11.5-14.0); White Blood Count 24.1 K/mm3 (4.0-10.5)
[2017-03-13 06:17] LABS: Anion Gap 10.3 mmol/L (6.8-13.8); BUN/Creatinine Ratio 19.4 (9.0-21.6); Calcium * 7.9 mg/dL (7.9-10.9); Carbon Dioxide 26.3 mmol/L (24-32.6); Estimated Creat Clear 42.3; Potassium 4.6 mmol/L (3.4-4.6)
[2017-03-13 06:27] LABS: Total Cells Counted 100
[2017-03-13 06:41] LABS: Neutrophil 84 % (42-75)
[2017-03-13 06:42] LABS: Atypical (Reactive) Lymph 1 % (0-2); Band 2 % (0-2.0); Eosinophil 1 % (0-3); Immature Granulocyte 4 (0-1); Lymphocyte 5 % (20-51); Monocyte 3 % (0-9); Neutrophil # 20.2 K/mm3 (1.3-6.0)
[2017-03-13 06:50] LABS: Platelet Estimate Normal (NORMAL)
[2017-03-13 06:51] LABS: Anisocytosis 2+; Hypochromia 2+
[2017-03-13] MEDS: INSULIN LISPRO 100 UNITS/ML VIAL SC SCH ×3 (07:13→17:49)
[2017-03-13] MEDS: glipiZIDE 2.5 MG TAB.SR.24H PO SCH (07:14)
[2017-03-13] MEDS: TIMOLOL MALEATE/DORZOLAM HCL 100 DROP BTL OP SCH ×2 (09:54→20:32)
[2017-03-13] MEDS: BRIMONIDINE TARTRATE 50 DROP BTL OP SCH ×3 (09:54→17:49)
[2017-03-13] MEDS: ENALAPRIL MALEATE 5 MG TABLET PO SCH (09:55)
[2017-03-13] MEDS: APIXABAN 2.5 MG TABLET PO SCH ×2 (09:55→20:35)
[2017-03-13] MEDS: FLUoxetine HCL 20 MG CAPSULE PO SCH (09:55)
[2017-03-13] MEDS: ASPIRIN 81 MG TAB.CHEW PO SCH (09:55)
[2017-03-13] MEDS: METOPROLOL SUCCINATE 50 MG TABLET.SA PO SCH (09:55)
[2017-03-13] MEDS: AMIODARONE HCL 200 MG TABLET PO SCH (09:56)
[2017-03-13] MEDS: ASPIRIN PO SCH ×2 (09:56→20:34)
[2017-03-13] MEDS: rOPINIRole HCL 1 MG TABLET PO SCH (09:56)
[2017-03-13] MEDS: DIPYRIDAMOLE PO SCH ×2 (09:56→20:34)
[2017-03-13] MEDS: SACCHAROMYCES BOULARDII 250 MG CAPSULE PO SCH ×2 (09:56→20:34)
[2017-03-13] MEDS: POTASSIUM CHLORIDE 10 MEQ TABLET.SA PO SCH (09:56)
[2017-03-13] MEDS: CHLORHEX GL/ISOPROPYL ALCOHOL 960 APPL BTL TP SCH ×2 (09:57→20:36)
[2017-03-13] MEDS: MUPIROCIN 22 APPL TUBE TP SCH (10:01)
[2017-03-13] MEDS: VANCOMYCIN HCL 1.5 GM in DEXTROSE 5 % IN WATER 500 ML IV SCH ×2 (10:06)
--- NOTE | 2017-03-13 12:25 | PN ---
Subjective - Date and Time Seen Date: 03/13/17 Time: 12:21 Subjective Narrative: Patient feels better clinically but WBC is up to 24 from 18. MARYANNE of vanco is 2 ( not effective for MRSA). will change to Daptomycin. Objective - Review of Systems Generalized/Overall Review: Reports: Weakness. Denies: Chills, Fever EENTM: Reports: No Symptoms Reported Respiratory: Denies: Cough, Shortness of Breath Cardiac: Denies: Chest Pain, Edema, Palpitations Abdominal: Denies: Nausea, Vomiting Genitourinary Symptoms: Denies: Urgency, Frequency Musculoskeletal Complaints: Reports: Back Pain - Vitals Vitals: Last Vital Signs Temp 36.9 C 03/13/17 10:14 Pulse 103 H 03/13/17 10:14 Resp 12 03/13/17 10:14 BP 140/80 03/13/17 10:14 Pulse Ox 100 03/13/17 10:14 - Abnormal Lab Findings Abnormal Lab Findings: Abnormal Lab Results 03/13/17 03/13/17 Range/Units 05:50 05:50 WBC 24.1 H D (4.0-10.5) K/mm3 RBC 3.12 L (4.2-5.4) M/mm3 Hgb 8.5 L (12.5-16.0) gm/dL Hct 24.5 L (37.0-47.0) % RDW 18.7 H (11.5-14.0) % Neutrophils % (Manual) 84 H (42-75) % Lymphocytes % (Manual) 5 L (20-51) % Immature Granulocytes 4 H (0-1) Neutrophils # (Manual) 20.2 H (1.3-6.0) K/mm3 Lymphocytes # (Manual) 1.2 L (1.5-3.5) k/mm3 Sodium 130 L (132-142) mmol/L Random Glucose 189 H D (70-110) mg/dL - Exam Constitutional: Present: Alert, Oriented x3, Cooperative ENT Exam: Present: hearing grossly normal Neck: Present: supple Breasts: Present: Exam deferred Respiratory: Present: normal breath sounds, No rales, No wheezing Cardiovascular/Chest: Present: regular rate, rhythm, no murmur Abdomen: Present: Normal bowel sounds, soft, nontender, nondistended Extremity: Present: no calf tenderness, lower extremity edema Cauti Physician Documentation - Urinary Catheter Management Urethral (Roblero) Date of Insertion: 03/12/17 Time of Insertion: 00:50 Date of Removal: 03/09/17 Time of Removal: 09:30 Assessment/Plan - Problems/Diagnosis (1) Hypoglycemia Problem: Resolved Narrative: BS is 180. (2) Pressure sore Problem: Chronic Narrative: Culture MRSA , Prtoeus mirabilis and E. Coli. WBC is up 24. Will change Vanco as MARYANNE is 2 ( not effective) to Daptomycin but will need to moniotr CPK and may have to stop statin due to interaction. Continue with Ceftazidime for now. 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 (4) Hyperlipidemia Problem: Chronic Qualifiers: Hyperlipidemia type: mixed hyperlipidemia Qualified Code(s): E78.2 - Mixed hyperlipidemia (5) Hypertension Problem: Chronic Qualifiers: Hypertension type: essential hypertension Qualified Code(s): I10 - Essential (primary) hypertension (6) Weakness Problem: Chronic (7) Anemia Problem: Acute Qualifiers: Iron deficiency anemia type: chronic blood loss (8) Leukocytosis Problem: Acute Narrative: will change Vanco to Daptomycin. Continue with Ceftazidime.
[2017-03-13] MEDS ORDERED: ALBUTEROL SULFATE 2.5 MG/3 ML VIAL.NEB IH PRN (13:26)
[2017-03-13] MEDS: NORMAL SALINE 1,000 ML IV PRN (13:52)
[2017-03-13] MEDS: ROSUVASTATIN CALCIUM 10 MG TABLET PO SCH (20:33)
[2017-03-13] MEDS: BIMATOPROST 25 DROP BTL OP SCH (20:33)
[2017-03-13] MEDS: traZODone HCL 50 MG TABLET PO SCH (20:35)
[2017-03-14] MEDS: CEFTAZIDIME 1 GM in DEXTROSE 5 % IN WATER 100 ML IV SCH ×4 (05:31→17:07)
[2017-03-14] MEDS: INSULIN LISPRO 100 UNITS/ML VIAL SC SCH ×3 (07:37→16:56)
[2017-03-14] MEDS: glipiZIDE 2.5 MG TAB.SR.24H PO SCH (07:39)
[2017-03-14] MEDS ORDERED: FUROSEMIDE 10 MG/ML VIAL ONE ×2 (09:43)
[2017-03-14] MEDS: AMIODARONE HCL 200 MG TABLET PO SCH (09:52)
[2017-03-14] MEDS: FLUoxetine HCL 20 MG CAPSULE PO SCH (09:52)
[2017-03-14] MEDS: ENALAPRIL MALEATE 5 MG TABLET PO SCH (09:52)
[2017-03-14] MEDS: METOPROLOL SUCCINATE 50 MG TABLET.SA PO SCH (09:52)
[2017-03-14] MEDS: rOPINIRole HCL 1 MG TABLET PO SCH (09:52)
[2017-03-14] MEDS: SACCHAROMYCES BOULARDII 250 MG CAPSULE PO SCH ×2 (09:52→20:15)
[2017-03-14] MEDS: POTASSIUM CHLORIDE 10 MEQ TABLET.SA PO SCH (09:52)
[2017-03-14] MEDS: TIMOLOL MALEATE/DORZOLAM HCL 100 DROP BTL OP SCH ×2 (09:53→20:14)
[2017-03-14] MEDS: ASPIRIN 81 MG TAB.CHEW PO SCH (09:53)
[2017-03-14] MEDS: APIXABAN 2.5 MG TABLET PO SCH ×2 (09:53→20:15)
[2017-03-14] MEDS: DIPYRIDAMOLE PO SCH ×2 (09:53→20:16)
[2017-03-14] MEDS: ASPIRIN PO SCH ×2 (09:53→20:16)
[2017-03-14] MEDS: BRIMONIDINE TARTRATE 50 DROP BTL OP SCH ×3 (09:53→16:58)
[2017-03-14] MEDS: FUROSEMIDE 40 MG, FUROSEMIDE 20 MG IV SCH ×4 (09:56→20:15)
[2017-03-14] MEDS ORDERED: FUROSEMIDE 10 MG/ML VIAL IV SCH (10:00)
[2017-03-14] MEDS: CHLORHEX GL/ISOPROPYL ALCOHOL 960 APPL BTL TP SCH ×2 (10:14→20:16)
[2017-03-14] MEDS: LEVOFLOXACIN/D5W 750 MG/150 ML BAG IV SCH (10:16)
--- NOTE | 2017-03-14 18:28 | PN ---
Subjective - Date and Time Seen Date: 03/14/17 Time: 18:23 Subjective Narrative: Positive fluid balance. Edematous. WBC count up. I expanded antibiotic coverage this morning, stopped IV fluids and started IV Lasix. Objective - Review of Systems Generalized/Overall Review: Reports: Weakness, Malaise EENTM: Reports: No Symptoms Reported Respiratory: Reports: Cough, Shortness of Breath Cardiac: Reports: No Symptoms Reported Abdominal: Reports: No Symptoms Reported Genitourinary Symptoms: Reports: No Symptoms Reported Musculoskeletal Complaints: Reports: No Symptoms Reported Neurological: Reports: No Symptoms Reported Skin: Reports: No Symptoms Reported Endocrine: Reports: No Symptoms Reported - Vitals Vitals: Last Vital Signs Selected Entries 03/14/17 14:38 Temperature 37.3 C Temperature Temporal Artery Source Scan Pulse Rate 95 Respiratory 16 Rate Blood Pressure 108/62 Blood Pressure Supine Position O2 Sat by Pulse 97 Oximetry Oxygen Delivery Room Air Method - Exam Constitutional: Present: Alert, Oriented x3, Cooperative, Well developed, Well nourished, No distress ENT Exam: Present: normal ENT inspection, hearing grossly normal Neck: Present: supple Respiratory: Present: rales Cardiovascular/Chest: Present: regular rate, rhythm, no murmur, gallop/S3 Abdomen: Present: Normal bowel sounds, soft, nontender, nondistended, no rebound tenderness, no hepatospenomegaly, no masses, obese Extremity: Present: pedal edema, other - anasarca Skin Exam: Present: normal color, warm/dry, no cyanosis Neurologic: Present: alert Appearance: Present: appropriate appearance, neat Cauti Physician Documentation - Urinary Catheter Management Urethral (Roblero) Date of Insertion: 03/12/17 Time of Insertion: 00:50 Date of Removal: 03/09/17 Time of Removal: 09:30 Assessment/Plan Plan Narrative: IV lasix. Expand antibiotic coverage. Stop IV fluids. Follow labs. 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
[2017-03-14] MEDS: ROSUVASTATIN CALCIUM 10 MG TABLET PO SCH (20:15)
[2017-03-14] MEDS: traZODone HCL 50 MG TABLET PO SCH (20:15)
[2017-03-14] MEDS: BIMATOPROST 25 DROP BTL OP SCH (20:16)
[2017-03-15] MEDS: CEFTAZIDIME 1 GM in DEXTROSE 5 % IN WATER 100 ML IV SCH ×4 (05:29→18:37)
[2017-03-15 05:39] LABS: Hematocrit 25.1 % (37.0-47.0); Hemoglobin 8.2 gm/dL (12.5-16.0); Mean Cell Volume 82.8 fl (78-100); Mean Corpuscular Hemoglobin 27.1 pg (27-31); Mean Corpuscular Hgb Conc 32.7 g/dl (32-36); Mean Platelet Volume 8.6 fl (6.0-9.5); Platelet Count 342 K/mm3 (150-450); Red Blood Count 3.03 M/mm3 (4.2-5.4); Red Cell Distribution Width 19.8 % (11.5-14.0); White Blood Count 26.2 K/mm3 (4.0-10.5)
[2017-03-15 05:54] LABS: Albumin * 1.5 gm/dl (3.4-5.0); BUN/Creatinine Ratio 24.5 (9.0-21.6); Bilirubin, Total 0.7 mg/dL (0.0-1.1); Ca. Corrected For Albumin 9.3 mg/dL (8.4-10.2); Calcium * 7.6 mg/dL (7.9-10.9); Carbon Dioxide 27.5 mmol/L (24-32.6); Potassium 4.5 mmol/L (3.4-4.6); Total Cells Counted 100; Total Protein 5.5 gm/dL (6.2-8.2)
[2017-03-15 06:01] LABS: Band 6 % (0-2.0); Hypochromia 1+; Lymphocyte 3 % (20-51); Monocyte 1 % (0-9); Neutrophil 90 % (42-75); Neutrophil # 23.6 K/mm3 (1.3-6.0); Platelet Estimate Normal (NORMAL)
[2017-03-15 06:02] LABS: Anisocytosis 1+; Microcytosis 1+
[2017-03-15] MEDS: INSULIN LISPRO 100 UNITS/ML VIAL SC SCH ×3 (07:21→16:50)
[2017-03-15] MEDS: glipiZIDE 2.5 MG TAB.SR.24H PO SCH (07:21)
--- NOTE | 2017-03-15 07:53 | PN ---
Subjective - Date and Time Seen Date: 03/15/17 Time: 07:46 Subjective Narrative: Beginning to diurese a little bit. Rate of rise of wbc count slowing. Feels cold this morning. Not making as much progress as she would like. Objective - Review of Systems Generalized/Overall Review: Reports: Weakness, Malaise EENTM: Reports: No Symptoms Reported Respiratory: Reports: Shortness of Breath - less so Cardiac: Reports: Edema Abdominal: Reports: No Symptoms Reported Genitourinary Symptoms: Reports: No Symptoms Reported Musculoskeletal Complaints: Reports: No Symptoms Reported Neurological: Reports: No Symptoms Reported Skin: Reports: No Symptoms Reported Endocrine: Reports: No Symptoms Reported Misc: All systems neg except as marked - Vitals Vitals: Last Vital Signs Selected Entries 03/15/17 07:48 Temperature 37.2 C Temperature Oral Source Pulse Rate 94 Respiratory 18 Rate Respiratory Normal Depth Blood Pressure 137/80 Blood Pressure Supine Position O2 Sat by Pulse 94 Oximetry Oxygen Delivery Room Air Method - Abnormal Lab Findings Abnormal Lab Findings: Abnormal Lab Results 03/15/17 03/15/17 Range/Units 05:30 05:30 WBC 26.2 H (4.0-10.5) K/mm3 RBC 3.03 L (4.2-5.4) M/mm3 Hgb 8.2 L (12.5-16.0) gm/dL Hct 25.1 L (37.0-47.0) % RDW 19.8 H (11.5-14.0) % Neutrophils % (Manual) 90 H (42-75) % Band Neuts % (Manual) 6 H (0-2.0) % Lymphocytes % (Manual) 3 L (20-51) % Neutrophils # (Manual) 23.6 H (1.3-6.0) K/mm3 Lymphocytes # (Manual) 0.8 L (1.5-3.5) k/mm3 Sodium 131 L (132-142) mmol/L BUN 24 H D (3-23) mg/dL BUN/Creatinine Ratio 24.5 H (9.0-21.6) Calcium 7.6 L (7.9-10.9) mg/dL Total Protein 5.5 L (6.2-8.2) gm/dL Albumin 1.5 L (3.4-5.0) gm/dl - Exam Constitutional: Present: Alert, Oriented x3, Cooperative, Well developed, No distress, Obese ENT Exam: Present: normal ENT inspection, hearing grossly normal Respiratory: Present: No rales Cardiovascular/Chest: Present: regular rate, rhythm, no murmur Abdomen: Present: Normal bowel sounds, soft, nontender, nondistended, no rebound tenderness, no hepatospenomegaly, no masses, obese Extremity: Present: other - anasarca Skin Exam: Present: normal color, warm/dry, no cyanosis Neurologic: Present: alert, oriented x 3 Appearance: Present: appropriate appearance, neat Eye contact: Present: cooperative, good eye contact, normal speech Cauti Physician Documentation - Urinary Catheter Management Urethral (Roblero) Date of Insertion: 03/12/17 Time of Insertion: 00:50 Date of Removal: 03/09/17 Time of Removal: 09:30 Assessment/Plan Plan Narrative: Increase Lasix. Follow labs. Continue antibiotics. Continue wound care. 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
[2017-03-15] MEDS: FLUoxetine HCL 20 MG CAPSULE PO SCH (10:06)
[2017-03-15] MEDS: rOPINIRole HCL 1 MG TABLET PO SCH (10:06)
[2017-03-15] MEDS: ASPIRIN 81 MG TAB.CHEW PO SCH (10:06)
[2017-03-15] MEDS: METOPROLOL SUCCINATE 50 MG TABLET.SA PO SCH (10:06)
[2017-03-15] MEDS: ASPIRIN PO SCH ×2 (10:06→21:15)
[2017-03-15] MEDS: DIPYRIDAMOLE PO SCH ×2 (10:06→21:15)
[2017-03-15] MEDS: POTASSIUM CHLORIDE 10 MEQ TABLET.SA PO SCH (10:06)
[2017-03-15] MEDS: APIXABAN 2.5 MG TABLET PO SCH ×2 (10:06→21:15)
[2017-03-15] MEDS: SACCHAROMYCES BOULARDII 250 MG CAPSULE PO SCH ×2 (10:07→21:15)
[2017-03-15] MEDS: AMIODARONE HCL 200 MG TABLET PO SCH (10:07)
[2017-03-15] MEDS: BRIMONIDINE TARTRATE 50 DROP BTL OP SCH ×3 (10:07→16:50)
[2017-03-15] MEDS: ENALAPRIL MALEATE 5 MG TABLET PO SCH (10:07)
[2017-03-15] MEDS: FUROSEMIDE 10 MG/ML VIAL IV SCH ×2 (10:08→21:16)
[2017-03-15] MEDS: CHLORHEX GL/ISOPROPYL ALCOHOL 960 APPL BTL TP SCH ×2 (10:08→21:16)
[2017-03-15] MEDS: TIMOLOL MALEATE/DORZOLAM HCL 100 DROP BTL OP SCH ×2 (10:08→21:14)
[2017-03-15] MEDS ORDERED: VANCOMYCIN HCL LEVEL XX ONE (10:15)
[2017-03-15] MEDS: BIMATOPROST 25 DROP BTL OP SCH (21:14)
[2017-03-15] MEDS: ROSUVASTATIN CALCIUM 10 MG TABLET PO SCH (21:15)
[2017-03-15] MEDS: traZODone HCL 50 MG TABLET PO SCH (21:16)
[2017-03-16] MEDS: CEFTAZIDIME 1 GM in DEXTROSE 5 % IN WATER 100 ML IV SCH ×4 (05:26→19:13)
[2017-03-16 06:00] LABS: Hematocrit 24.2 % (37.0-47.0); Hemoglobin 8.2 gm/dL (12.5-16.0); Mean Cell Volume 78.3 fl (78-100); Mean Corpuscular Hemoglobin 26.5 pg (27-31); Mean Corpuscular Hgb Conc 33.9 g/dl (32-36); Mean Platelet Volume 8.9 fl (6.0-9.5); Platelet Count 288 K/mm3 (150-450); Red Blood Count 3.09 M/mm3 (4.2-5.4); Red Cell Distribution Width 19.5 % (11.5-14.0)
[2017-03-16 06:14] LABS: White Blood Count 27.6 K/mm3 (4.0-10.5)
[2017-03-16 06:15] LABS: Total Cells Counted 100
[2017-03-16 06:17] LABS: Anion Gap 11.3 mmol/L (6.8-13.8); BUN/Creatinine Ratio 26.2 (9.0-21.6); Carbon Dioxide 25.8 mmol/L (24-32.6); Estimated Creat Clear 24.2; Potassium 4.1 mmol/L (3.4-4.6)
[2017-03-16 06:58] LABS: Band 3 % (0-2.0); Immature Granulocyte 1 (0-1); Lymphocyte 3 % (20-51); Monocyte 6 % (0-9); Neutrophil 87 % (42-75)
[2017-03-16 07:02] LABS: Anisocytosis 1+; Hypochromia 1+; Microcytosis 1+
[2017-03-16 07:03] LABS: Platelet Estimate Normal (NORMAL)
[2017-03-16] MEDS: glipiZIDE 2.5 MG TAB.SR.24H PO SCH (07:19)
[2017-03-16] MEDS: INSULIN LISPRO 100 UNITS/ML VIAL SC SCH ×3 (07:20→16:41)
--- NOTE | 2017-03-16 09:23 | PN ---
Subjective - Date and Time Seen Date: 03/16/17 Time: 07:20 Subjective Narrative: Tired of being in the hospital. Tearful. Objective - Review of Systems Generalized/Overall Review: Reports: Weakness EENTM: Reports: No Symptoms Reported Respiratory: Reports: No Symptoms Reported Cardiac: Reports: No Symptoms Reported Abdominal: Reports: No Symptoms Reported Genitourinary Symptoms: Reports: No Symptoms Reported Musculoskeletal Complaints: Reports: No Symptoms Reported Neurological: Reports: Depressed Skin: Reports: No Symptoms Reported Endocrine: Reports: No Symptoms Reported Misc: All systems neg except as marked - Vitals Vitals: Last Vital Signs Selected Entries 03/16/17 02:53 Temperature 36.9 C Temperature Oral Source Pulse Rate 88 Respiratory 20 Rate Blood Pressure 100/47 Blood Pressure Supine Position O2 Sat by Pulse 96 Oximetry Oxygen Delivery Room Air Method Oxygen Flow 0 Rate - Abnormal Lab Findings Abnormal Lab Findings: Abnormal Lab Results 03/16/17 03/16/17 Range/Units 05:56 05:56 WBC 27.6 H (4.0-10.5) K/mm3 RBC 3.09 L (4.2-5.4) M/mm3 Hgb 8.2 L (12.5-16.0) gm/dL Hct 24.2 L (37.0-47.0) % MCH 26.5 L (27-31) pg RDW 19.5 H (11.5-14.0) % Neutrophils % (Manual) 87 H (42-75) % Band Neuts % (Manual) 3 H (0-2.0) % Lymphocytes % (Manual) 3 L (20-51) % Neutrophils # (Manual) 24.0 H (1.3-6.0) K/mm3 Lymphocytes # (Manual) 0.8 L (1.5-3.5) k/mm3 Monocytes # (Manual) 1.7 H (0.0-1.0) k/mm3 Sodium 131 L (132-142) mmol/L BUN 33 H (3-23) mg/dL Est GFR (Non-Af Amer) 52 L D (60-130) mL/min BUN/Creatinine Ratio 26.2 H (9.0-21.6) - Exam Constitutional: Present: Alert, Oriented x3, Cooperative, Well developed, Mild distress - emotional ENT Exam: Present: normal ENT inspection, hearing grossly normal Neck: Present: normal inspection Respiratory: Present: lungs clear, no respiratory distress Cardiovascular/Chest: Present: regular rate, rhythm, no murmur Abdomen: Present: Normal bowel sounds, soft, nontender, nondistended, no rebound tenderness, no hepatospenomegaly, obese Extremity: Present: other - anasarca Skin Exam: Present: normal color, warm/dry, no cyanosis, other - did not inspect pressure sores...........see nurse notes. Neurologic: Present: alert, oriented x 3, other - tearful Appearance: Present: appropriate appearance, appropriate insight, neat, no memory impairment Eye contact: Present: cooperative, good eye contact, normal speech Thoughts: Present: normal thought pattern Cauti Physician Documentation - Urinary Catheter Management Urethral (Roblero) Date of Insertion: 03/12/17 Time of Insertion: 00:50 Date of Removal: 03/09/17 Time of Removal: 09:30 Assessment/Plan Plan Narrative: DC tele. Increase prozac. Labs. Wound revisit. Photos weekly. 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
[2017-03-16 09:24] LABS: Hemoglobin A1C 5.8 % (4.00-6.0)
[2017-03-16] MEDS: BRIMONIDINE TARTRATE 50 DROP BTL OP SCH ×3 (09:33→16:35)
[2017-03-16] MEDS: ASPIRIN PO SCH ×2 (09:33→20:03)
[2017-03-16] MEDS: AMIODARONE HCL 200 MG TABLET PO SCH (09:33)
[2017-03-16] MEDS: DIPYRIDAMOLE PO SCH ×2 (09:33→20:03)
[2017-03-16] MEDS: ASPIRIN 81 MG TAB.CHEW PO SCH (09:33)
[2017-03-16] MEDS: TIMOLOL MALEATE/DORZOLAM HCL 100 DROP BTL OP SCH ×2 (09:34→20:02)
[2017-03-16] MEDS: POTASSIUM CHLORIDE 10 MEQ TABLET.SA PO SCH (09:34)
[2017-03-16] MEDS: SACCHAROMYCES BOULARDII 250 MG CAPSULE PO SCH ×2 (09:34→20:03)
[2017-03-16] MEDS: CHLORHEX GL/ISOPROPYL ALCOHOL 960 APPL BTL TP SCH ×2 (09:34→20:03)
[2017-03-16] MEDS: APIXABAN 2.5 MG TABLET PO SCH ×2 (09:34→20:02)
[2017-03-16] MEDS: FLUoxetine HCL 20 MG CAPSULE PO SCH (09:35)
[2017-03-16] MEDS: FUROSEMIDE 10 MG/ML VIAL IV SCH (09:35)
[2017-03-16] MEDS: rOPINIRole HCL 1 MG TABLET PO SCH (09:36)
[2017-03-16] MEDS: ENALAPRIL MALEATE 5 MG TABLET PO SCH (09:36)
[2017-03-16] MEDS: LEVOFLOXACIN/D5W 750 MG/150 ML BAG IV SCH (09:36)
[2017-03-16] MEDS: METOPROLOL SUCCINATE 50 MG TABLET.SA PO SCH (09:36)
--- NOTE | 2017-03-16 12:56 | PN ---
Subjective - Date and Time Seen Date: 03/16/17 Time: 12:42 Subjective Narrative: No fever no chills no localized back pain but continued to have markedly elevated white count and markedly elevated CRP and sedimentation rate ; Low albumin due to malnutrition Objective - Vitals Vitals: Last Vital Signs Temp 37.8 C H 03/16/17 11:45 Pulse 84 03/16/17 11:45 Resp 18 03/16/17 11:45 BP 98/50 03/16/17 11:45 Pulse Ox 97 03/16/17 11:45 - Abnormal Lab Findings Abnormal Lab Findings: Abnormal Lab Results 03/16/17 03/16/17 03/16/17 Range/Units 05:56 05:56 05:56 WBC 27.6 H (4.0-10.5) K/mm3 RBC 3.09 L (4.2-5.4) M/mm3 Hgb 8.2 L (12.5-16.0) gm/dL Hct 24.2 L (37.0-47.0) % MCH 26.5 L (27-31) pg RDW 19.5 H (11.5-14.0) % Neutrophils % (Manual) 87 H (42-75) % Band Neuts % (Manual) 3 H (0-2.0) % Lymphocytes % (Manual) 3 L (20-51) % Neutrophils # (Manual) 24.0 H (1.3-6.0) K/mm3 Lymphocytes # (Manual) 0.8 L (1.5-3.5) k/mm3 Monocytes # (Manual) 1.7 H (0.0-1.0) k/mm3 ESR 54 H (0-15) mm/hr Sodium 131 L (132-142) mmol/L BUN 33 H (3-23) mg/dL Est GFR (Non-Af Amer) 52 L D (60-130) mL/min BUN/Creatinine Ratio 26.2 H (9.0-21.6) C-Reactive Prot, Quant (0.0-0.9) mg/dL 03/16/17 Range/Units 05:56 WBC (4.0-10.5) K/mm3 RBC (4.2-5.4) M/mm3 Hgb (12.5-16.0) gm/dL Hct (37.0-47.0) % MCH (27-31) pg RDW (11.5-14.0) % Neutrophils % (Manual) (42-75) % Band Neuts % (Manual) (0-2.0) % Lymphocytes % (Manual) (20-51) % Neutrophils # (Manual) (1.3-6.0) K/mm3 Lymphocytes # (Manual) (1.5-3.5) k/mm3 Monocytes # (Manual) (0.0-1.0) k/mm3 ESR (0-15) mm/hr Sodium (132-142) mmol/L BUN (3-23) mg/dL Est GFR (Non-Af Amer) (60-130) mL/min BUN/Creatinine Ratio (9.0-21.6) C-Reactive Prot, Quant 20.9 H (0.0-0.9) mg/dL - Exam Skin Exam: Present: other - At the sacroiliac area there is a stage II pressure ulcers no foul smelling discharge no sinus tract or undermining there is some yellow tissue on the center of the wound there is large amount non purulent discharge; At the lumbar area there is a postop wound with a deep pocket measuring about 4 cm no foul-smelling discharge Cauti Physician Documentation - Urinary Catheter Management Urethral (Roblero) Date of Insertion: 03/12/17 Time of Insertion: 00:50 Date of Removal: 03/09/17 Time of Removal: 09:30 Assessment/Plan - Problems/Diagnosis (1) Malnutrition Problem: Chronic Narrative: recommend protein supplements (2) Pressure sore Problem: Chronic Qualifiers: Pressure ulcer location: sacral region Pressure ulcer stage: stage 2 Qualified Code(s): L89.152 - Pressure ulcer of sacral region, stage 2 Narrative: Continued to use Aquacel Ag and will add another layer of calcium alginate to absorb exudate (3) Wound dehiscence Problem: Chronic Narrative: post op wound at the lumbar area possible osteomyelitis of the lumbar spine lumbat xray ordered
[2017-03-16] MEDS: BIMATOPROST 25 DROP BTL OP SCH (20:02)
[2017-03-16] MEDS: traZODone HCL 50 MG TABLET PO SCH (20:03)
[2017-03-16] MEDS: ROSUVASTATIN CALCIUM 10 MG TABLET PO SCH (20:03)
[2017-03-17] MEDS: CEFTAZIDIME 1 GM in DEXTROSE 5 % IN WATER 100 ML IV SCH ×2 (05:09)
[2017-03-17 06:06] LABS: Mean Cell Volume 77.2 fl (78-100); Mean Corpuscular Hemoglobin 27.2 pg (27-31); Mean Corpuscular Hgb Conc 35.2 g/dl (32-36); Mean Platelet Volume 9.1 fl (6.0-9.5); Neutrophil # 19.3 K/mm3 (1.3-6.0); Neutrophil % 87.8 % (42-75.0); Platelet Count 261 K/mm3 (150-450)
[2017-03-17 06:11] LABS: Anion Gap 11.5 mmol/L (6.8-13.8); BUN/Creatinine Ratio 31.4 (9.0-21.6); Calcium * 7.6 mg/dL (7.9-10.9); Carbon Dioxide 25.3 mmol/L (24-32.6); Estimated Creat Clear 25.2; Potassium 3.8 mmol/L (3.4-4.6)
[2017-03-17 06:22] LABS: Hemoglobin 6.7 gm/dL (12.5-16.0)
[2017-03-17 06:23] LABS: Hematocrit 19.3 % (37.0-47.0)
[2017-03-17] MEDS: INSULIN LISPRO 100 UNITS/ML VIAL SC SCH ×3 (06:59→17:25)
[2017-03-17] MEDS: glipiZIDE 2.5 MG TAB.SR.24H PO SCH (07:00)
[2017-03-17] MEDS ORDERED: ACETAMINOPHEN 325 MG TABLET PO ONE (07:04)
[2017-03-17] MEDS ORDERED: diphenhydrAMINE HCL 50 MG/ML VIAL IV ONE (07:04)
[2017-03-17] MEDS ORDERED: FUROSEMIDE 10 MG/ML VIAL IV PRN ×2 (07:07→07:08)
[2017-03-17] MEDS ORDERED: FUROSEMIDE 40 MG, FUROSEMIDE 20 MG IV PRN ×4 (07:14→07:16)
--- NOTE | 2017-03-17 08:21 | PN ---
Subjective - Date and Time Seen Date: 03/17/17 Time: 07:30 Subjective Narrative: Needs transfusion. Doesn't want one. Tearful. WBC improving. Daughter present. Objective - Review of Systems Generalized/Overall Review: Reports: Weakness, Malaise EENTM: Reports: No Symptoms Reported Respiratory: Reports: No Symptoms Reported Cardiac: Reports: No Symptoms Reported Abdominal: Reports: No Symptoms Reported Genitourinary Symptoms: Reports: No Symptoms Reported Musculoskeletal Complaints: Reports: No Symptoms Reported Neurological: Reports: Anxiety, Depressed Skin: Reports: No Symptoms Reported Endocrine: Reports: No Symptoms Reported Misc: All systems neg except as marked - Vitals Vitals: Last Vital Signs Selected Entries 03/17/17 06:39 Temperature 36.7 C Temperature Temporal Artery Source Scan Pulse Rate 89 Respiratory 18 Rate Respiratory Normal Depth Blood Pressure 91/45 Blood Pressure Supine Position O2 Sat by Pulse 93 Oximetry Oxygen Delivery Room Air Method - Abnormal Lab Findings Abnormal Lab Findings: Abnormal Lab Results 03/16/17 03/16/17 03/17/17 Range/Units 05:56 05:56 06:00 WBC 22.0 H D (4.0-10.5) K/mm3 RBC 2.50 L (4.2-5.4) M/mm3 Hgb 6.7 L* (12.5-16.0) gm/dL Hct 19.3 L* D (37.0-47.0) % MCV 77.2 L (78-100) fl RDW 19.0 H (11.5-14.0) % Immature Gran % (Auto) 2.50 H (0.001-0.429) % Immature Gran # (Auto) 0.54 H (0.000-0.0310) K/mm3 Neutrophils % 87.8 H (42-75.0) % Lymphocytes % 4.2 L (20-51) % Neutrophils # 19.3 H (1.3-6.0) K/mm3 Lymphocytes # 0.9 L (1.5-3.5) k/mm3 Monocytes # 1.1 H (0.0-1.0) k/mm3 ESR 54 H (0-15) mm/hr BUN (3-23) mg/dL Est GFR (Non-Af Amer) (60-130) mL/min BUN/Creatinine Ratio (9.0-21.6) Random Glucose (70-110) mg/dL Calcium (7.9-10.9) mg/dL C-Reactive Prot, Quant 20.9 H (0.0-0.9) mg/dL Crossmatch 03/17/17 03/17/17 Range/Units 06:00 06:15 WBC (4.0-10.5) K/mm3 RBC (4.2-5.4) M/mm3 Hgb (12.5-16.0) gm/dL Hct (37.0-47.0) % MCV (78-100) fl RDW (11.5-14.0) % Immature Gran % (Auto) (0.001-0.429) % Immature Gran # (Auto) (0.000-0.0310) K/mm3 Neutrophils % (42-75.0) % Lymphocytes % (20-51) % Neutrophils # (1.3-6.0) K/mm3 Lymphocytes # (1.5-3.5) k/mm3 Monocytes # (0.0-1.0) k/mm3 ESR (0-15) mm/hr BUN 38 H (3-23) mg/dL Est GFR (Non-Af Amer) 54 L (60-130) mL/min BUN/Creatinine Ratio 31.4 H (9.0-21.6) Random Glucose 142 H D (70-110) mg/dL Calcium 7.6 L (7.9-10.9) mg/dL C-Reactive Prot, Quant (0.0-0.9) mg/dL Crossmatch See Detail - Exam Constitutional: Present: Alert, Oriented x3, Cooperative, Well developed, Morbidly obese - Tearful ENT Exam: Present: normal ENT inspection, hearing grossly normal Neck: Present: normal inspection Respiratory: Present: normal breath sounds, no respiratory distress Cardiovascular/Chest: Present: regular rate, rhythm, edema - anasarca Abdomen: Present: Normal bowel sounds, soft, nontender, nondistended, no rebound tenderness, no hepatospenomegaly, no masses, obese Extremity: Present: swelling Skin Exam: Present: normal color, warm/dry, no cyanosis, other - wound center states no change to pressure sores. Neurologic: Present: alert, oriented x 3 Appearance: Present: appropriate appearance, appropriate insight, neat, no memory impairment Eye contact: Present: cooperative, good eye contact, normal speech Thoughts: Present: normal thought pattern Cauti Physician Documentation - Urinary Catheter Management Urethral (Roblero) Date of Insertion: 03/12/17 Time of Insertion: 00:50 Date of Removal: 03/09/17 Time of Removal: 09:30 Assessment/Plan Plan Narrative: Blood only if she wants it. Options! Transition to comfort care anytime she chooses. 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
[2017-03-17] MEDS: ASPIRIN PO SCH ×2 (09:06→20:30)
[2017-03-17] MEDS: DIPYRIDAMOLE PO SCH ×2 (09:06→20:30)
[2017-03-17] MEDS: AMIODARONE HCL 200 MG TABLET PO SCH (09:07)
[2017-03-17] MEDS: ASPIRIN 81 MG TAB.CHEW PO SCH (09:07)
[2017-03-17] MEDS: rOPINIRole HCL 1 MG TABLET PO SCH (09:07)
[2017-03-17] MEDS: SACCHAROMYCES BOULARDII 250 MG CAPSULE PO SCH ×2 (09:07→20:32)
[2017-03-17] MEDS: APIXABAN 2.5 MG TABLET PO SCH ×2 (09:07→20:31)
[2017-03-17] MEDS: POTASSIUM CHLORIDE 10 MEQ TABLET.SA PO SCH (09:08)
[2017-03-17] MEDS: FLUoxetine HCL 20 MG CAPSULE PO SCH (09:08)
[2017-03-17] MEDS: TIMOLOL MALEATE/DORZOLAM HCL 100 DROP BTL OP SCH ×2 (09:08→20:30)
[2017-03-17] MEDS: BRIMONIDINE TARTRATE 50 DROP BTL OP SCH ×3 (09:08→17:26)
--- NOTE | 2017-03-17 09:08 | PROC NOTE ---
ED Procedures - Laceration/Wound Repair Sacrum Wound Debrided: minimal - using debrisan to debridge wound around the edges ;no active bleeding; no pain ;suferficial debridgement was
[2017-03-17] MEDS: CHLORHEX GL/ISOPROPYL ALCOHOL 960 APPL BTL TP SCH ×2 (09:09→20:32)
[2017-03-17] MEDS: FUROSEMIDE 10 MG/ML VIAL IV SCH (10:00)
[2017-03-17] MEDS: METOPROLOL SUCCINATE 25 MG TABLET.SA PO SCH (10:00)
[2017-03-17] MEDS: ENALAPRIL MALEATE 5 MG TABLET PO SCH (10:06)
[2017-03-17] MEDS: ACETAMINOPHEN 325 MG TABLET PO PRN (12:02)
[2017-03-17] MEDS: ROSUVASTATIN CALCIUM 10 MG TABLET PO SCH (20:31)
[2017-03-17] MEDS: traZODone HCL 50 MG TABLET PO SCH (20:31)
[2017-03-17] MEDS: BIMATOPROST 25 DROP BTL OP SCH (20:32)
[2017-03-18] MEDS: INSULIN LISPRO 100 UNITS/ML VIAL SC SCH ×2 (07:42→11:51)
[2017-03-18] MEDS: glipiZIDE 2.5 MG TAB.SR.24H PO SCH (07:43)
[2017-03-18] MEDS ORDERED: HYDROcodone/ACETAMINOPHEN 1 EACH TABLET PO PRN ×2 (08:21)
[2017-03-18] MEDS: TIMOLOL MALEATE/DORZOLAM HCL 100 DROP BTL OP SCH (09:02)
[2017-03-18] MEDS: ASPIRIN PO SCH (09:03)
[2017-03-18] MEDS: METOPROLOL SUCCINATE 25 MG TABLET.SA PO SCH (09:03)
[2017-03-18] MEDS: DIPYRIDAMOLE PO SCH (09:03)
[2017-03-18] MEDS: FLUoxetine HCL 20 MG CAPSULE PO SCH (09:03)
[2017-03-18] MEDS: POTASSIUM CHLORIDE 10 MEQ TABLET.SA PO SCH (09:03)
[2017-03-18] MEDS: SACCHAROMYCES BOULARDII 250 MG CAPSULE PO SCH (09:03)
[2017-03-18] MEDS: AMIODARONE HCL 200 MG TABLET PO SCH (09:03)
[2017-03-18] MEDS: rOPINIRole HCL 1 MG TABLET PO SCH (09:03)
[2017-03-18] MEDS: BRIMONIDINE TARTRATE 50 DROP BTL OP SCH (09:03)
[2017-03-18] MEDS: FUROSEMIDE 10 MG/ML VIAL IV SCH (09:04)
[2017-03-18] MEDS: ASPIRIN 81 MG TAB.CHEW PO SCH (09:04)
[2017-03-18] MEDS: APIXABAN 2.5 MG TABLET PO SCH (09:04)
[2017-03-18] MEDS: CHLORHEX GL/ISOPROPYL ALCOHOL 960 APPL BTL TP SCH (09:14)
[2017-03-18] MEDS: LEVOFLOXACIN/D5W 750 MG/150 ML BAG IV SCH (10:36)
--- NOTE | 2017-03-18 11:47 | PN ---
Subjective - Date and Time Seen Date: 03/18/17 Time: 07:40 Subjective Narrative: Tearful. Tired of doing this. Back pain. Leg pain. Wrestling along with family about comfort care decision. Objective - Review of Systems Generalized/Overall Review: Reports: Weakness, Malaise EENTM: Reports: No Symptoms Reported Respiratory: Reports: No Symptoms Reported Cardiac: Reports: No Symptoms Reported Abdominal: Reports: No Symptoms Reported Genitourinary Symptoms: Reports: No Symptoms Reported Musculoskeletal Complaints: Reports: Back Pain, Other - leg pain Neurological: Reports: No Symptoms Reported Skin: Reports: No Symptoms Reported Endocrine: Reports: No Symptoms Reported Misc: All systems neg except as marked - Vitals Vitals: Last Vital Signs Selected Entries 03/18/17 07:20 Temperature 37.9 C H Temperature Oral Source Pulse Rate 113 H Respiratory 18 Rate Respiratory Normal Depth Blood Pressure 139/41 Blood Pressure Supine Position O2 Sat by Pulse 96 Oximetry Oxygen Delivery Room Air Method - Exam Constitutional: Present: Alert, Oriented x3, Cooperative, Well developed, Moderate distress - emotional, tearful, Morbidly obese ENT Exam: Present: normal ENT inspection, hearing grossly normal Neck: Present: normal inspection Respiratory: Present: normal breath sounds, no respiratory distress Cardiovascular/Chest: Present: regular rate, rhythm, no murmur, tachycardia Abdomen: Present: Normal bowel sounds, soft, nontender, nondistended, no rebound tenderness, no hepatospenomegaly, no masses, obese Extremity: Present: other - anasarca Skin Exam: Present: normal color, warm/dry, no cyanosis Appearance: Present: appropriate appearance, appropriate insight, neat, no memory impairment Eye contact: Present: cooperative, good eye contact, normal speech Thoughts: Present: normal thought pattern [facility]i Physician Documentation - Urinary Catheter Management Urethral ([place]) Date of Insertion: 03/12/17 Time of Insertion: 00:50 Date of Removal: 03/09/17 Time of Removal: 09:30 Assessment/Plan Plan Narrative: Continue with present plan at moment. Switch to [place] for better pain control. Says tylenol not helping. 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
[2017-03-18 11:49] VITALS: BP 92/54
[2017-03-18] MEDS ORDERED: BISACODYL 10 MG SUPP.RECT RC PRN (11:49)
[2017-03-18] MEDS ORDERED: ONDANSETRON HCL/PF 2 MG/ML VIAL IV PRN (11:49)
[2017-03-18] MEDS ORDERED: ZOLPIDEM TARTRATE 5 MG TABLET PO PRN (11:49)
[2017-03-18] MEDS ORDERED: ATROPINE SULFATE 150 DROP BTL SL PRN (11:49)
[2017-03-18] MEDS ORDERED: HYDROcodone/ACETAMINOPHEN 5 ML UDC PO PRN (11:49)
[2017-03-18] MEDS ORDERED: MORPHINE SULFATE 10 MG/0.5 ML SYRINGE PO PRN (11:49)
[2017-03-18] MEDS ORDERED: POLYVINYL ALCOHOL 150 DROP BTL EACHEYE PRN (11:49)
[2017-03-18] MEDS ORDERED: LORazepam 2 MG/ML DISP.SYRIN IV PRN (11:49)
--- NOTE | 2017-03-18 11:55 | PN ---
Progess Note - Interim Narrative: 03/18/17 11:55 Received a phone call from [facility]. Patient and family have opted for comfort care and hospice. Will proceed.
--- NOTE | 2017-03-18 12:51 | DS ---
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 Local wound care was also provided. Wound care clinic was consulted. The patient may be slowly improving at present, but has devoloped more severe anemia. She has declined transfusion, and now today, along with her family, has opted for comfort care with hospice. She will return to the [facility] with that plan in place. Procedures Performed: none Discharge Disposition: [facility] Disposition: [facility] Condition: Poor Discharge Activity: Other - bedrest, chair, herber lift, turn every two hours. Discharge Diet: General/regular food Discharge Level of Care:: Hospice - Retirement Referrals: Eric Yu MD [Primary Care Provider] - Problem Oriented Discharge Instructions to Patient/Family: Urinary Tract Infection, Adult, [id number] Additional Patient Instructions (free text): Continue dressing changes as here at the hospital. Prescriptions (Any new or edited meds): FLUoxetine HCL [Prozac] 40 mg PO DAILY #30 capsule HYDROcodone/ACETAMINOPHEN [[place] 5-325] 1 - 2 each PO QID PRN #120 tablet PRN Reason: Pain traZODone HCL [Trazodone HCl] 50 mg PO HS #30 tablet Complete Home Medications List: Complete Home Medication List: Bimatoprost [Lumigan 0.01% Ophthalmic Solution] 2.5 ml OP HS 01/13/17 Brimonidine Tartrate [Alphagan-P 0.1% Ophthalmic Solution] 5 ml OP TID 01/13/17 Dorzolamide HCl/Timolol Maleat [Dorzolamide-Timolol Eye Drops] 10 ml OP BID 08/31 FLUoxetine HCL [Prozac] 40 mg PO DAILY #30 capsule 03/18/17 HYDROcodone/ACETAMINOPHEN [[place] 5-325] 1 - 2 each PO QID PRN #120 tablet traZODone HCL [Trazodone HCl] 50 mg PO HS #30 tablet 03/18/17
[2017-03-18] MEDS ORDERED: HYDROPHILIC OINTMENT 454 APPL JAR TP SCH (21:00)
== END 2017-03-18 13:20 | disposition hospice, home (50) | DRG 689 ==
LOC: ER 23:07 → MS 03-08 00:31
PROVIDERS: ADMIT Nurse Practitioner Critical Care Medicine; ATTEND Allergy & Immunology
PROC: 30263N1 (ICD-10-PCS; principal; 2017-03-08)
DX: N30.00 Acute cystitis without hematuria (principal); L89.104 Pressure ulcer of unspecified part of back, stage 4; L89.153 Pressure ulcer of sacral region, stage 3; E87.79 Other fluid overload; D50.0 Iron deficiency anemia secondary to blood loss (chronic); E11.9 Type 2 diabetes mellitus without complications; E78.2 Mixed hyperlipidemia; I10 Essential (primary) hypertension; R53.1 Weakness; J45.909 Unspecified asthma, uncomplicated; Z86.14 Personal history of Methicillin resistant Staphylococcus aureus infection
CPT/HCPCS: 36415; 71010; 72100; 80048; 80053; 80202; 81001; 82272; 83036; 83605; 83880; 85007; 85014; 85018; 85025; 85652; 86140; 86850; 86900; 87040; 87070; 87077; 87081; 87086; 87186; 94640; 94762; 97110; 97163; 97165; 97530; 99285; J0878; P9016